=== PATIENT | female | born 1960 | race Caucasian/White ===

== ENCOUNTER 2020-06-07 11:44 | Outpatient (CLI) | payer BC, SELFPAY ==
--- NOTE | 2020-06-07 11:54 | XR_ITS ---
WS: [id number] LUMBAR SPINE: 3 VIEWS TECHNIQUE: AP, lateral and L5-S1 spot. HISTORY: BACK PAIN COMPARISON: 02/03/2019 Posterior alignment is normal. Mild spondylitic changes throughout the lumbar spine. No fracture. There is very mild facet joint arthritis and narrowing at L5-S1. SI joints are symmetric bilaterally. No soft tissue abnormalities. Scattered calcified plaque within the abdominal aorta. Similar to the prior examination. XR/XR lumbar spine 2-3V* [id number] IMPRESSION: 1. Mild stable spondylitic changes in the lumbar spine. 2. No fracture. 3. Mild atherosclerosis aorta.
== END 2020-06-07 11:45 | disposition home or self-care (01) ==
PROVIDERS: Visit Provider Electrodiagnostic Medicine
DX: M54.5 Low back pain (principal); I70.0 Atherosclerosis of aorta
CPT/HCPCS: 72100

== ENCOUNTER 2020-06-20 15:55 | Outpatient (CLI) | payer BC, SELFPAY ==
--- NOTE | 2020-06-20 16:41 | CTR_ITS ---
PROCEDURE INFORMATION: Exam: CT Angiography Chest With Contrast Exam date and time: 06/20/2020 4:42 PM Age: 59 years old Clinical indication: Cough and shortness of breath; Additional info: Rash, copd, covid+ TECHNIQUE: Imaging protocol: Computed tomographic angiography of the chest with contrast. 3D rendering (Not supervised by radiologist): MIP and/or 3D reconstructed images were created by the technologist. Radiation optimization: All CT scans at this facility use at least one of these dose optimization techniques: automated exposure control; mA and/or kV adjustment per patient size (includes targeted exams where dose is matched to clinical indication); or iterative reconstruction. Contrast material: OMNI 350; Contrast volume: 91 ml; Contrast route: INTRAVENOUS (IV); COMPARISON: CR Chest 1 [place] [id number] 05/19/2018 8:44 PM RADIATION DOSE METRICS: Total DLP (mGy-cm): 528.6 FINDINGS: Pulmonary arteries: There is no evidence of filling defects within the pulmonary arterial circulation to suggest pulmonary embolism. Aorta: There are mild atherosclerotic calcifications in the aortic arch without evidence of aneurysm or dissection. Lungs: There are mild findings of centrilobular emphysema with a few scattered lucencies. There is some minimal subsegmental atelectasis at the left lung base. Pleural spaces: Unremarkable. No pneumothorax. No pleural effusion. Heart: There is moderate atherosclerotic calcification of the coronary arteries. Lymph nodes: There are calcified right hilar lymph nodes in keeping with old granulomatous disease. There is mild mediastinal adenopathy with the largest AP window lymph node measuring approximately 10 x 18 mm and also some prominent subcarinal, and paratracheal nodes. Bones/joints: Unremarkable. No acute fracture. Soft tissues: Unremarkable. Other findings: There is a 3 mm sized perifissural nodule on the right. No further follow-up is necessary. CT/CT angio chest PE protcl [id number] IMPRESSION: 1. No evidence pulmonary embolism. 2. No acute infiltrate. Radiation Dose CTDIVOL = (mGy): DLP = 528.6 (mGy-cm)
[2020-06-20] MEDS: iohexol 350 mg/mL 100 mL Btl IV (16:58)
== END 2020-06-20 15:56 | disposition home or self-care (01) ==
PROVIDERS: Visit Provider Electrodiagnostic Medicine
DX: R21 Rash and other nonspecific skin eruption (principal); U07.1 COVID-19; J44.9 Chronic obstructive pulmonary disease, unspecified
CPT/HCPCS: 71275

== ENCOUNTER 2021-02-01 07:35 | Outpatient (CLI) | payer BC, SELFPAY ==
--- NOTE | 2021-02-01 07:43 | MM_ITS ---
WS: [id number] BILATERAL DIGITAL SCREENING MAMMOGRAPHY WITH CAD CLINICAL INFORMATION: SCREENING HISTORY: Screening mammogram. No current complaints. COMPARISON: TECHNIQUE: Bilateral CC and MLO views. FINDINGS: Scattered fibroglandular densities bilaterally. Intramammary lymph node right breast. No suspicious f ocal mass, asymmetry, calcifications, or architectural distortion. No evidence of malignancy. MM/[place] [id number] IMPRESSION: BI-RADS: 2-Benign FOLLOW UP: 1 Year Follow-up Recommend return to annual screening mammography.
== END 2021-02-01 07:36 | disposition home or self-care (01) ==
PROVIDERS: PCP Electrodiagnostic Medicine; Visit Provider Electrodiagnostic Medicine
DX: Z12.31 Encounter for screening mammogram for malignant neoplasm of breast (principal)
CPT/HCPCS: 77067

== ENCOUNTER 2023-03-05 13:43 | Outpatient (CLI) | payer OTHER, SELFPAY ==
--- NOTE | 2023-03-05 13:52 | MM_ITS ---
WS: [id number] BILATERAL 3D TOMOSYNTHESIS DIGITAL SCREENING MAMMOGRAPHY WITH CAD CLINICAL INFORMATION: SCREENING HISTORY: Screening mammogram. No current complaints. COMPARISON: 2020 TECHNIQUE: Bilateral CC and MLO views. FINDINGS: Scattered fibroglandular densities bilaterally. No suspicious focal mass, asymmetry, calcifications, or architectural distortion. No evidence of malignancy. IMPRESSION: MM/[place] [id number] BI-RADS: 1-Negative FOLLOW UP: 1 Year Follow-up Recommend return to annual screening mammography.
== END 2023-03-05 13:44 | disposition home or self-care (01) ==
LOC: RAD 13:44
PROVIDERS: PCP Electrodiagnostic Medicine; Visit Provider Electrodiagnostic Medicine
DX: Z12.31 Encounter for screening mammogram for malignant neoplasm of breast (principal)
CPT/HCPCS: 77063; 77067

== ENCOUNTER 2024-01-17 20:00 | Inpatient (IN) | payer SELFPAY ==
[2024-01-17] VITALS (10 sets, daily range): BP systolic 132–178; BP diastolic 83–123; PULSE 69–76; RESP 14–32; O2SAT 90–100; BMI 30.1
--- NOTE | 2024-01-17 20:17 | ECG_ITS ---
[facility] Test Date: 2024-01-17 Pat Name: Humaira Birmingham Department: Room: Gender: Female System Architect: : 1960 Requested By: Jon Torres Order Number: [id number] Piotr MD: Clemente Guidry M.D. Measurements Intervals Aurora Rate: 73 P: 46 MD: 144 QRS: 44 QRSD: 100 T: 66 QT: 422 QTc: 468 Interpretive Statements SINUS RHYTHM POSSIBLE RIGHT VENTRICULAR CONDUCTION DELAY [RSR (QR) IN V1/V2] No previous ECG available for comparison Electronically Signed On 01-17-2024 21:53:25 CDT by Clemente Guidry M.D. [email or web address]
--- NOTE | 2024-01-17 20:18 | XRR_ITS ---
PROCEDURE INFORMATION: Exam: XR Chest Exam date and time: 01/17/2024 8:33 PM Age: 63 years old Clinical indication: Angina pectoris; Patient HX: Mediastinal chest pain; Copd; SOB TECHNIQUE: Imaging protocol: Radiologic exam of the chest. Views: 1 view. COMPARISON: CT angio chest PE protcl [id number] 06/20/2020 4:45 PM FINDINGS: Lungs: Bilateral mid to lower lung field airspace infiltrates. Pleural spaces: Unremarkable. No pleural effusion. No pneumothorax. Heart/Mediastinum: Unremarkable. No cardiomegaly. Bones/joints: Unremarkable. XR/XR chest 1V portable [id number] IMPRESSION: Bilateral mid to lower lung field airspace infiltrates.
[2024-01-17 20:32] LABS: Basophils # 0.1 10^3/uL (0.0-0.1); Basophils % 0.4 %; Eosinophils # 0.3 10^3/uL (0.0-0.8); Eosinophils % 1.5 %; Hematocrit 40.4 % (36-47); Lymphocytes # 6.3 10^3/uL (0.8-4.8); Mean Corpuscular HGB Conc 34.7 g/dL (30-55); Mean Corpuscular Volume 86.7 fl (85-98); Mean Platelet Volume 9.7 fL (7.4-10.4); Monocytes # 1.1 10^3/uL (0.2-0.9); Monocytes % 6.8 %; Neutrophils # 8.72 10^3/uL (1.8-7.7); Neutrophils % 52.9 %; Nucleated Red Blood Cells % 0 %; Platelet Count 467 10^3/cmm (157-399); Red Blood Count 4.66 10^6/uL (3.85-5.65); Red Cell Distribution Width 14.2 % (12.1-15.1); White Blood Count 16.48 10^3/uL (3.29-11.43)
[2024-01-17] MEDS: morphine 4 mg/mL SDV 1 mL IVP (20:35)
[2024-01-17] MEDS: aspirin 81 mg Chew Tablet 324 MG PO (20:36)
[2024-01-17] MEDS: ondansetron 2 mg/ML SDV 2 mL 4 MG IVP (20:36)
[2024-01-17 20:43] LABS: INR 0.91 (0.8-1.2)
[2024-01-17 20:44] LABS: Partial Thromboplastin Time 33.8 SECONDS (23.9-36.7)
[2024-01-17 20:51] LABS: Alanine Aminotransferase 26 U/L (0-33); Albumin Level 4.4 g/dL (3.5-5.2); Alkaline Phosphatase 118 U/L (35-105); Anion Gap 23.2 (5-19); Aspartate Amino Transferase 24 U/L (0-32); Blood Urea Nitrogen 22 mg/dL (8-23); Calcium 9.3 mg/dL (8.5-10.5); Carbon Dioxide 15 mmol/L (22-29); Chloride 104 mmol/L (98-107); Creatinine Clr Calc Pharmacy 72.6111; Globulin 2.4 g/dL (1.3-4.6); Glomerular Filtration Rate 72.9 mL/min (90-130); Glucose 149 mg/dL (65-115); Osmolality Calculated 292 mOsm/kg (285-295); Potassium 4.2 mmol/L (3.5-5.1); Sodium 138 mmol/L (136-145); Total Bilirubin 0.2 mg/dL (0.15-1.2); Total Protein 6.8 g/dL (6.6-8.7)
[2024-01-17 20:52] LABS: Troponin(5th) Baseline 174 ng/L (0-10)
[2024-01-17 20:58] LABS: NT Pro B Type Natriuretic Pept 67 pg/mL (0-125)
[2024-01-17] MEDS: clopidogrel 300 mg Tablet 600 MG PO (21:07)
[2024-01-17] MEDS: heparin 5,000 unit/mL INJ 1 mL 4000 UNIT IVP (21:07)
[2024-01-17] MEDS: nitroglycerin drip 50 MG/250 ML PREMIX IV (21:27)
--- NOTE | 2024-01-17 21:31 | P.HP_ITS ---
Providers/Chief Complaint 2 Admitting Physician: Clemente Guidry MD/ Interventional cardiology Primary Care Provider: Noe Johansen DO Chief Complaint: arm pain, sob History of Present Illness Humaira Birmingham is a 63 year old female with past medical history of hyperlipidemia has presented with substernal chest pressure that feels like stabbing pain and heartburn. Radiating to arms. Associated with diaphoresis and nausea. This has been going on since afternoon. On and off however now got severe. In the ER EKG does not demonstrate acute ST elevation. Initial troponin is 174. As chest pain is getting worse, decision made to activate cardiac Edge Grinder for urgent cardiac catheterization with possible PCI. Review of Systems 2 Narrative: CONSTITUTIONAL: No fever chills weight loss or gain or night sweats. 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 [] MUSCULOSKELETAL: No knee or joint pain or rashes. [] Medications/Allergies Allergies Allergy/AdvReac Type Severity Reaction Status Date / Time No Known Allergies Allergy Verified 01/17/24 20:23 Vitals/I&O/Wt Last Vital Signs Pulse 69 01/17/24 20:00 Resp 32 H 01/17/24 20:35 BP 173/101 01/17/24 20:00 Pulse Ox 98 01/17/24 20:00 O2 Del Method Room Air 01/17/24 20:00 Weight last 48 hrs Weight 170 lb Physical Exam 2 Narrative: GENERAL: Patient is alert, awake and oriented x3. [] NECK: No jugular vein distension. [] HEENT: No cyanosis. No icterus. No pallor. [] HEART: Regular S1 and S2. No murmur, rub or gallop. [] LUNGS: Clear to auscultate bilaterally. [] CENTRAL NERVOUS SYSTEM: Grossly nonfocal. [] EXTREMITIES: Lower extremities with no edema bilaterally Data 01/17/24 20:21 01/17/24 20:21 A&P Assessment and plan (1) NSTEMI (non-ST elevated myocardial infarction): (2) Hyperlipidemia: Plan Patient has presented with high risk for non-ST elevation NV. Has significant symptoms of chest pain/heart burn going on associated with diaphoresis, nausea. Plan for urgent cardiac catheterization with possible percutaneous coronary intervention Has been loaded with aspirin, plavix. Heparin bolus given Ordering echocardiogram Attestations 2 Medical Necessity Statement*: Care expected to cross 2 midnights. Patient has presented with acute onset chest pain and elevated troponin. High risk NSTEMI. Going for urgent cardiac catheterization. Coding Level of Care Code Acute Code for [facility] Diagnoses NSTEMI (non-ST elevated myocardial infarction) I21.4 Hyperlipidemia E78.5
--- NOTE | 2024-01-17 21:41 | XACV_ITS ---
Exam Room: 2 Ht: 160 cm Wt: 77 kg BSA: 1.88 m2 Gender: Female : 1960 Any Known Allergies: No known allergies Exam Priority: Routine Procedure(s): Procedure Description: Diagnostic procedure Procedure Description: PCI procedure Procedure Description: Left Heart Catheterization Procedure Description: Coronary IVUS Procedure Description: Drug Eluting Coronary Stent Procedure Description: PTCA Procedure Description: Miscellaneous Procedure Description: ACT Diagnostic Cath Status: Urgent Diagnostic Findings * INDICATION: High risk NSTEMI with ongoing chest pain, diaphoresis. * Left Main has no significant disease. * Circumflex has mild diffuse irregularities. * Proximal Left Anterior Descending: obstructive 60- 70% stenosis, SENDY: 3 flow. * Proximal to Mid Left Anterior Descending: critical 95% stenosis, SENDY: 2 flow. * Distal Right Coronary Artery: obstructive 60-70% stenosis, SENDY: 3 flow. * Proximal Right Coronary Artery to Mid Right Coronary Artery: obstructive 70% stenosis, SENDY: 3 flow. * Mid Right Coronary Artery to Distal Right Coronary Artery: severe 90% stenosis, SENDY: 3 flow. * Coronary angiography shows right dominance. PCI Status: Urgent PCI Indication: PCI for high risk Non-STEMI or unstable angina Interventional Findings * Procedure detail: We engaged the left main artery with XB 3.5 guide catheter. IV heparin was administered to maintain anticoagulation. 0.014 run-through guidewire was used to cross the stenosis and was placed in distal vessel. We predilated the proximal to mid segment of LAD with 2.75 x 15 mm semicompliant balloon. This was followed with placement of 3.0 x 30 mm resolute Mitch drug-eluting stent. At this time there was stenosis noted at distal and proximal edge of the stent. We performed IVUS that confirmed less than 50% plaque burden at distal edge of the stent with improvement of angiographic narrowing seen with nitro. MSA was obtained to be 5mm2. Proximal to stent, lesion looked more significant. We decided to cover it with a 3.5 x 18 mm resolute Mitch drug-eluting stent overlapping with the mid segment stent. Both stents were then postdilated with 3.5 x 27 mm NC balloon at high pressure. At this time final angiogram was performed that showed excellent stent expansion, no residual stenosis and SENDY-3 flow. We decided to staged PCI of RCA in 1-2 days as a patient had received significant contrast load.. * Proximal Left Anterior Descending to Mid Left Anterior Descendin% stenosis treated with a MDT R MITCH 3.5X18 MARINA, and MDT NC EUPHORA RX 3.57J57GR BALLOON. 0% residual stenosis, SENDY: 3 flow. * Mid Left Anterior Descendin% stenosis treated with a AB TREK 2.75X15 RX BALLOON, and MDT R MITCH 3.0X30 MARINA. 0% residual stenosis, SENDY: 3 flow. Conclusions 1. Critical proximal to mid LAD stenosis s/p successful revascularization with 2 stents. 2. Severe stenosis of proximal to distal RCA. Plan for staged PCI in 1-2 days. 3. Proximal Left Anterior Descending to Mid Left Anterior Descending was treated with a Drug Eluting Stent, and Balloon. 4. Mid Left Anterior Descending was treated with a Balloon, and Drug Eluting Stent. Recommendations * Dual antiplatelet therapy with aspirin and plavix for atleast 1 year. * Smoking cessation. * Transfer to ICU. * Plan for staged PCI of RCA in 1-2 days. Interventional RX Recommendation: PCI w/o planned CABG Diagnostic RX Recommendation: PCI w/o planned CABG Anticoagulation: Heparin Pressures Phase:Rest AO : 94 / 71 ( 83 ) @ 5:57:57 PM 99 / 65 ( 81 ) @ 5:57:57 PM 119 / 74 ( 96 ) @ 5:57:57 PM 129 / 82 ( 104 ) @ 5:57:57 PM 92 / 52 ( 70 ) @ 5:57:57 PM Clinical Evaluation EBL: 5mL-10mL Procedural Details Pre-Procedure Time Out. Identified patient by full name and date of as verbalized by the patient/guarantor. Does the consent match the physician's order: Yes. Accurate & Complete Informed Consent: Yes. Inpatient/Outpatient History & Physical on Chart: Yes. If H&P is completed, is and addenduem needed: N/A Emergent; Informed Consent not obtained due to time critical life threat; If yes, is the addendum complete: Yes. Visualize and Verify Site with Patient/Guarantor: N/A. Relevant Radiology Images available: Yes. Pre-op teaching completed and patient verbalized understanding. The risks, benefits, and alternatives of sedation and/or procedure were discussed by physician. The patient agrees to continue. Procedure started. [facility] Clinical Fraility Score: 3: Managing Well. Welfare Supervisor Indications: ACS > 24 hours. Chest Pain Symptom Assessment: Typical Angina Symptoms. Cardiovascular Instability: No. Correct patient, site and procedure confirmed by cath team. Current diagnosis: NSTEMI. PERRLA. Strong, equal hand tipple mechanic bilaterally. Lungs clear x 5 lobes. IV Site on Arrival: 20 gauge in the right anticubital. IV Site on Arrival: 20 gauge in the left anticubital. IV Fluids: 0.9% NaCl at KVO. 0 mL infused prior to labor/excavator. Pre Procedural Pulses: right radial was 3+. Oxygen started at 2liters/min via nasal canula. right groin was prepped with chloroprep then draped in the usual sterile fashion. right radial was prepped with chloroprep then draped in the usual sterile fashion. Physician notified. Baseline sample Acquired. HR: 70 BPM. Patient's family in the obsterics unit at this time. Dr. Guidry spoke with the spouse, Taun, prior to the start of the procedure. Will update at the compeltion of the procedure. Equipment: 6F - Radial. Cardiac Cath Pack. ACIST Manifold Kit Model BT 2000. Heparinized Saline (2 units/mL), 1000 mL bag. Physician arrived. Physician scrubbed in. Immediate Pre-Procedure Time Out. Correct Patient: Yes; Correct Procedure: Yes; Correct Site: Yes; Correct Patient Position: Yes; Correct Supplies: Yes; Dried Flammable Prep: Yes; Blood Products Available: N/A. Lidocaine 1% infiltrated to the right radial. Unable to obtain radial access. MD attempting to gain access in the Femoral artery. Lidocaine 1% infiltrated to the right groin. Arterial access obtained with micropuncture set. A Zepher TR band was placed on the right wrist. A 5 namibian JL4 catheter in over wire. Multiple views taken of left coronary artery. Catheter removed over the standard wire. A 5 namibian JR4 catheter in over wire. Multiple views taken of right coronary artery. Catheter removed over the standard wire. 6 namibian XB 3.5 guide catheter was inserted over the wire. Runthrough guidewire was advanced through the guide catheter to lesion in the mid LAD. Inflation number : 1 A AB TREK 2.75X15 RX BALLOON was prepped and advanced across the Mid LAD , then inflated to 8 JANEY for 0:10 seconds. Inflation number: 2 The AB TREK 2.75X15 RX BALLOON was reinflated across the Mid LAD, to 10 JANEY for 0:10 seconds. Balloon out. Results checked. Inflation Number : 3 A MDT R MITCH 3.0X30 MARINA -Lot Number# [id number] was prepped and advanced across the Mid LAD. The stent was deployed at 12 JANEY for 0:22 seconds. Exp 2026-03-23. Stent balloon out over wire. Results checked. PCI Indication : PCI for high risk Non-STEMI or unstable angina. IVUS Catheter in. IVUS performed of the LAD post PCI. IVUS Catheter out. Inflation Number : 1 A MDT R MITCH 3.5X18 MARINA -Lot Number# [id number] prepped and advanced across the Prox LAD. The stent was deployed at 14 JANEY for 0:20 seconds. Exp. 2026-02-02. Stent balloon out over wire. Inflation number : 2 A MDT NC EUPHORA RX 3.24G38RR BALLOON was prepped and advanced across the Prox LAD , then inflated to 20 JANEY for 0:19 seconds. Inflation number: 3 The MDT NC EUPHORA RX 3.33C77GY BALLOON was reinflated across the Prox LAD, to 20 JANEY for 0:12 seconds. Balloon out. Results checked. Wire out. Results checked. ACT drawn. Results out of range high seconds. Therapeutic limits - pre-heparin administration 90-150 seconds and monitoring heparin during a vascular procedure >250 seconds. Guide catheter out. A Right femoral angiogram was performed to determine safe placement of closure device. A Suture was successful obtaining hemostatsis at the Right Femoral artery insertion site. Sheath(s) sutured into position with 2-0 silk and sterile 4x4's and Op-site applied over the site. No oozing or signs and symptoms of hematoma noted. Arterial sheath flushed and connected to tranducer and pressure bag with heparinized saline. Post Procedure: bilateral dorsalis pedis pulse 3+. Post Procedure: bilateral posterior tibial pulse 3+. PERRLA. Strong, equal hand tipple mechanic bilaterally. No VTE prophylaxis required. Medication's Wasted: Lidocaine 1% = 10 mL. Total IV fluids: 60 mL. PCI Indication: NSTE. Post-op diagnosis: PCI of the Prox & Mid LAD. Complications: none. Estimated blood loss: 5mL-10mL. Responsiveness - Normal response to verbal stimuli; alert and oriented, PERRLA. Airway - Unaffected, no intervention required; spontaneous ventilation. Circulation: W/N/L, pulses unchanged. Nausea/Vomiting: No. ACT drawn. Results 225 seconds. Therapeutic limits - pre-heparin administration 90-150 seconds and monitoring heparin during a vascular procedure >250 seconds. Procedure completed. Vital chart was stopped. Access Site Site: Right Femoral artery Sheath Size: 6 Fr Hemostasis Method: Suture Hemostasis Success: Successful Procedure Medications Start: 10:03 PM Stop: 10:03 PM Medication: Versed Amount: 1 mg Route: I.V. Start: 10:03 PM Stop: 10:03 PM Medication: Fentanyl Amount: 50 mcg Route: I.V. Start: 10:04 PM Stop: 10:04 PM Medication: Versed Amount: 1 mg Route: I.V. Start: 10:08 PM Stop: 10:08 PM Medication: Fentanyl Amount: 50 mcg Route: I.V. Start: 10:14 PM Stop: 10:14 PM Medication: Heparin Amount: 3000 units Route: I.V. Start: 10:24 PM Stop: 10:24 PM Medication: Versed Amount: 1 mg Route: I.V. Start: 10:30 PM Stop: 10:30 PM Medication: Nitrogylcerin Amount: 200 mcg Route: I.C. Start: 10:31 PM Stop: 10:31 PM Medication: Heparin Amount: 1000 units Route: I.V. Start: 10:43 PM Stop: 10:43 PM Medication: Versed Amount: 1 mg Route: I.V. I, the attending physician, have reviewed and verified all procedure medications. Yes, all medications given per verbal order Report Signatures Finalized by Clemente Guidry MD on 01/19/2024 12:22 PM
--- NOTE | 2024-01-17 21:59 | W.PM.OPSUD ---
Surgery/Procedure H&P Update DATE OF PROCEDURE: January 17, 2024 DATE H&P PERFORMED: 01/17/24 H&P UPDATE INFORMATION: I have reviewed H&P completed within last 30 days, I have examined patient prior to procedure and No changes to prior documentation PREOP DIAGNOSIS: NSTEMI PRIMARY INDICATION FOR PROCEDURE: NSTEMI PLANNED PROCEDURE: Left heart cath with possible percutaneous coronary intervention PATIENT REASSESSED PRIOR TO SEDATION, WITH NO CHANGE NOTED: Yes PHYSICAL EXAM: alert, oriented x 3, clear to auscultation bilaterally and regular rate & rhythm AIRWAY EVAL/ANESTHESIA PLAN: normal airway, ASA III, Local Anesthesia, Risks, benefits & alternatives of sedation and/or procedure discussed and Patient agrees to continue as planned ADDITIONAL INFORMATION: Moderate sedation
--- NOTE | 2024-01-17 22:56 | XACV_ITS ---
Exam Room: 2 Ht: 160 cm Wt: 77 kg BSA: 1.88 m2 Gender: Female : 1960 Any Known Allergies: No known allergies Exam Priority: Routine Procedure(s): Procedure Description: PCI procedure Procedure Description: Coronary IVUS Procedure Description: Drug Eluting Coronary Stent Procedure Description: PTCA Procedure Description: Miscellaneous Procedure Description: ACT Procedure Description: Coronary Angiography Diagnostic Cath Status: Urgent Diagnostic Findings * INDICATION: Patient presented with high risk NSTEMI. We performed PCI of critical proximal to mid LAD stenosis with 2 stents. Plan was to to intervene on RCA in 1 to 2 days. Patient was still on the labeling strategist table when she mentioned that the chest pain has not resolved and is still having severe pressure. We then proceeded with PCI of RCA. * Proximal to mid RCA has [id number]% stenosis. Mid Right Coronary Artery to Distal Right Coronary Artery: severe 90% stenosis. Distal RCA has another 60-70% stenosis. * Left system not injected. Please refer to diagnostic report from earlier today i.e 01/17/2024. * Coronary angiography shows right dominance. PCI Status: Urgent PCI Indication: NSTE - ACS Interventional Findings * Mid Right Coronary Artery to Distal Right Coronary Artery: 90% stenosis treated with a 3.0X30 stent balloonHANNAH MITCH 3.5X38 MARINA, HANNAH Frederick MITCH 3.5X38 MARINA, and HANNAH PRAJAPATI EUPHORA RX [id number] BALLOON. 0% residual stenosis, SENDY: 3 flow. * PROCEDURE DETAIL: We engaged RCA with JR4 guide catheter. ACT was confirmed to be theraputic. We predilated the stenosis with 3.0 x 30 mm stent balloon used for her LAD PCI. This was followed by placement of 3.5 x 38 mm resolute Mitch drug-eluting stent from mid to distal segment. We then placed an overlapping 3.5 x 38 mm resolute Mitch drug-eluting stent from proximal to mid segment. We then performed IVUS. Stents were postdilated with 3.75 x 20 mm NC balloon. At this time final angiogram was performed that showed excellent stent expansion, SENDY 3 flow and no residual stenosis. . Conclusions 1. Severe proximal to distal RCA stenosis status post successful revascularization with 2 stents.. 2. Mid Right Coronary Artery to Distal Right Coronary Artery was treated with a Drug Eluting Stent, Drug Eluting Stent, Drug Eluting Stent, and Balloon. Recommendations * Transfer to ICU. * Dual antiplatelet therapy with aspirin and plavix. * High intensity statin therapy. * Outpatient cardiology follow up in 2 weeks. Interventional RX Recommendation: PCI w/o planned CABG Diagnostic RX Recommendation: PCI w/o planned CABG Anticoagulation: Heparin Pressures Phase:Rest AO : 157 / 100 ( 127 ) @ 6:30:38 PM 121 / 80 ( 98 ) @ 6:30:38 PM 164 / 98 ( 128 ) @ 6:30:38 PM Clinical Evaluation EBL: 5mL-10mL Procedural Details The risks, benefits, and alternatives of sedation and/or procedure were discussed by physician. The patient agrees to continue. Procedure started. When closing the initial procedure, the patient started complaining of chest pain. Dr. Guidry Scrubbed back in. 6 grenadian JR 4 guide catheter was inserted over the wire. Runthrough guidewire was advanced through the guide catheter to lesion in the mid RCA. Inflation Number : 1 The 3.0 x 30 Sontag STENT BALLOON was prepped and advanced across the Mid RCA. The predilation was performed at 14 JANEY for 0:17 seconds. Inflation number: 2 The stent balloon was then re-inflated across the Mid RCA to 14 JANEY for 0:11 seconds. Stent balloon out. Inflation Number : 3 A MDT R MITCH 3.5X38 MARINA -Lot Number# [id number] was prepped and advanced across the Mid RCA. The stent was deployed at 12 JANEY for 0:22 seconds. Exp 2024-01-24. Stent balloon out over wire. Inflation Number : 4 A MDT R MITCH 3.5X38 MARINA -Lot Number# [id number] was prepped and advanced across the Mid RCA. The stent was deployed at 12 JANEY for 0:21 seconds. Exp. 2025-07-09. Stent balloon out over wire. IVUS catheter in. IVUS performed of the RCA post PCI. IVUS catheter out. Inflation number : 5 A MDT NC EUPHORA RX [id number] BALLOON was prepped and advanced across the Mid RCA , then inflated to 14 JANEY for 0:16 seconds. Inflation number: 6 The MDT NC EUPHORA RX 3.88A32YM BALLOON was reinflated across the Mid RCA, to 14 JANEY for 0:10 seconds. Inflation number: 7 The MDT NC EUPHORA RX [id number] BALLOON was reinflated across the Mid RCA, to 14 JANEY for 0:13 seconds. Balloon out. Euphora 3.5 x 6 inserted, unable to cross, removed intact. Wire out. ACT drawn. Results 251 seconds. Therapeutic limits - pre-heparin administration 90-150 seconds and monitoring heparin during a vascular procedure >250 seconds. Guide catheter out. Dr. Guidry scrubbed out. Sheath(s) sutured into position with 2-0 silk and sterile 4x4's and Op-site applied over the site. No oozing or signs and symptoms of hematoma noted. Arterial sheath flushed and connected to tranducer and pressure bag with heparinized saline. Post Procedure: bilateral dorsalis pedis pulse 3+. Post Procedure: bilateral posterior tibial pulse 3+. PERRLA. Strong, equal hand plycor operator bilaterally. No VTE prophylaxis required. Medication's Wasted: Other = Versed 1 mg. Medication's Wasted: Other = Fentnayl 50 mcg. Total IV fluids: 50 mL. PCI Indication: NSTE. Post-op diagnosis: PCI of the Mid RCA. Medication's Wasted: Heparin = 2000 mL. Complications: none. Estimated blood loss: 5mL-10mL. Responsiveness - Normal response to verbal stimuli; alert and oriented, PERRLA. Airway - Unaffected, no intervention required; spontaneous ventilation. Circulation: W/N/L, pulses unchanged. Nausea/Vomiting: No. Procedure completed. Patient transferred by bed to ICU. Vital chart was stopped. Procedure Medications Start: 11:00 PM Stop: 11:00 PM Medication: Heparin Amount: 1000 units Route: I.V. Start: 11:05 PM Stop: 11:05 PM Medication: Fentanyl Amount: 50 mcg Route: I.V. Start: 11:05 PM Stop: 11:05 PM Medication: Versed Amount: 1 mg Route: I.V. Start: 11:12 PM Stop: 11:12 PM Medication: Heparin Amount: 1000 units Route: I.V. Start: 11:28 PM Stop: 11:28 PM Medication: Heparin Amount: 1000 units Route: I.V. I, the attending physician, have reviewed and verified all procedure medications. Yes, all medications given per verbal order Report Signatures Finalized by Clemente Guidry MD on 01/19/2024 12:38 PM
--- NOTE | 2024-01-17 22:56 | ED_ITS ---
HPI - Chest Pain 2 General: Chief Complaint: Chest Pain Stated Complaint: arm pain, sob Time Seen by Provider: 01/17/24 20:13 History of Present Illness: 63-year-old female presenting with chest pain radiating into her neck. She has no prior history of coronary disease. She states she is sweating and short of breath. She is nauseated. She has not had the symptoms prior to 4 days ago. But began with them around 4 days ago on and off. It has been constant and much worse this evening. Related Data Allergies Allergy/AdvReac Type Severity Reaction Status Date / Time No Known Allergies Allergy Verified 01/17/24 20:23 Physical Exam 2 Const: GENERAL APPEARANCE: cooperative, in distress, anxious and ill appearing; not frail appearing OTHER: Diaphoretic HENMT: COMMON NORMALS: normocephalic, atraumatic and Normal external nose present HEAD & SCALP: normocephalic and atraumatic FACE & SINUS: normal facial exam and face symmetric NOSE: Normal external nose present Eye: COMMON NORMALS: Equal, round and reactive pupils present and EOMs intact bilaterally PUPIL: Yes Equal, round and reactive pupils present Neck/C-Spine: GENERAL: Yes trachea midline Chest: CHEST: Yes Symmetrical chest wall rise Resp: COMMON NORMALS: normal respiratory effort, No retractions, No use of accessory muscles and clear to auscultation bilaterally AUSCULTATION: clear to auscultation bilaterally Cardio: COMMON NORMALS: regular rate and regular rhythm RATE: regular rate RHYTHM: regular rhythm GI: COMMON NORMALS: Normal to inspection, nondistended, normoactive bowel sounds present Extremity: COMMON NORMALS: no pedal edema Neuro: MELVIN COMA SCALE: document GCS findings Melvin coma scale eye opening: Spontaneous Hernshaw coma scale verbal response: Orientated Melvin coma scale motor response: Obey commands Melvin coma scale total score: 15 S ENSORY EXAM: Yes extremities (intact) Psych: COMMON NORMALS: speech normal SPEECH: Yes normal speech Skin: COMMON NORMALS: no rashes or lesions noted GENERAL SKIN EXAM: no rashes or lesions noted Course 2 Vital Signs: Vital signs: Vital Signs Pulse Rate 69 01/17/24 20:00 Respiratory Rate 32 H 01/17/24 20:35 Blood Pressure 173/101 01/17/24 20:00 Pulse Oximetry 98 01/17/24 20:00 Oxygen Delivery Me thod Room Air 01/17/24 20:00 MDM - Chest Pain Medical Decision Making Patient is in significant discomfort. She is given morphine with some relief. She still complaining of pain. Nitroglycerin has been ordered. EKG initially did not reveal any significant ST elevation or depression. White blood cell count is 16. Bicarb is 15. Anion gap is 23. Her baseline troponin is 174. BNP is negative. Chest x-ray reveals bilateral mid to lower lung field infiltrates consistent with potential edema. With significant anginal pain, elevated troponin, and pain not resolving with conservative treatment, consulted cardiology. Sent EKG. He agrees that there is no ST elevation WA, but with continued discomfort in the patient's chest and elevated troponin, elected to take the patient directly to the [facility] this evening. Cath team has been activated. She will go from here to the [facility]. She will be admitted for further workup and treatment following cardiac cath. Lab Data 01/17/24 20:21 01/17/24 20:21 Radiology Impressions Chest X-Ray 01/17/24 20:18 IMPRESSION: Bilateral mid to lower lung field airspace infiltrates. Laboratory Results WBC 16.48 10^3/uL (3.29-11.43) H 01/17/24 20:21 RBC 4.66 10^6/uL (3.85-5.65) 01/17/24 20:21 Hgb 14.00 g/dL (11.27-16.99) 01/17/24 20:21 Hct 40.4 % (36-47) 01/17/24 20:21 MCV 86.7 fl (85-98) 01/17/24 20:21 MCH 30.0 pg (27-33) 01/17/24 20:21 MCHC 34.7 g/dL (30-55) 01/17/24 20:21 RDW 14.2 % (12.1-15.1) 01/17/24 20:21 Plt Count 467 10^3/cmm (157-399) H 01/17/24 20:21 MPV 9.7 fL (7.4-10.4) 01/17/24 20:21 Neut % (Auto) 52.9 % 01/17/24 20:21 Lymph % (Auto) 38.0 % 01/17/24 20:21 Ballard % (Auto) 6.8 % 01/17/24 20:21 Eos % (Auto) 1.5 % 01/17/24 20:21 Baso % (Auto) 0.4 % 01/17/24 20:21 Neut # (Auto) 8.72 10^3/uL (1.8-7.7) H 01/17/24 20:21 Lymph # (Auto) 6.3 10^3/uL (0.8-4.8) H 01/17/24 20:21 Ballard # (Auto) 1.1 10^3/uL (0.2-0.9) H 01/17/24 20:21 Eos # (Auto) 0.3 10^3/uL (0.0-0.8) 01/17/24 20:21 Baso # (Auto) 0.1 10^3/uL (0.0-0.1) 01/17/24 20:21 Nucleated RBC % (auto) 0 % 01/17/24 20:21 Nucleated RBCs # 0.0 /100WBC 01/17/24 20:21 PT 12.60 SECONDS (12.1-14.9) 01/17/24 20:21 INR 0.91 (0.8-1.2) 01/17/24 20:21 APTT 33.8 SECONDS (23.9-36.7) 01/17/24 20:21 Sodium 138 mmol/L (136-145) 01/17/24 20:21 Potassium 4.2 mmol/L (3.5-5.1) 01/17/24 20:21 Chloride 104 mmol/L (98-107) 01/17/24 20:21 Carbon Dioxide 15 mmol/L (22-29) L 01/17/24 20:21 Anion Gap 23.2 (5-19) H 01/17/24 20:21 BUN 22 mg/dL (8-23) 01/17/24 20:21 Creatinine 0.8 mg/dL (0.5-0.9) 01/17/24 20:21 GFR Calculation 72.9 mL/min (90-130) L 01/17/24 20:21 Glucose 149 mg/dL (65-115) H 01/17/24 20:21 Calculated Osmolality 292 mOsm/kg (285-295) 01/17/24 20:21 Calcium 9.3 mg/dL (8.5-10.5) 01/17/24 20:21 Total Bilirubin 0.2 mg/dL (0.15-1.2) 01/17/24 20:21 AST 24 U/L (0-32) 01/17/24 20:21 ALT 26 U/L (0-33) 01/17/24 20:21 Alkaline Phosphatase 118 U/L (35-105) H 01/17/24 20:21 Troponin T Baseline 174 ng/L (0-10) H* 01/17/24 20:21 NT-Pro-B Natriuret Pep 67 pg/mL (0-125) 01/17/24 20:21 Total Protein 6.8 g/dL (6.6-8.7) 01/17/24 20:21 Albumin 4.4 g/dL (3.5-5.2) 01/17/24 20:21 Globulin 2.4 g/dL (1.3-4.6) 01/17/24 20:21 All radiology interpretation(s) finalized by discharge Critical Care Time 2 Critical Care Time: Critical Care Time: Yes Total Critical Care Time: 35 Attestation: This case had a high probability of a clinically significant, sudden, or life threatening deterioration of this patient's condition which required my full and direct attention, intervention and personal management. Time is independent of any procedures performed. Discharge Plan Discharge Patient Disposition: Admitted As Inpatient Clinical Impression: NSTEMI (non-ST elevated myocardial infarction) Condition: Serious Coding Level of Care Code ED Private Duty Rn for Santy Butcher
[2024-01-17] MEDS: sodium chloride 0.9% 1,000 ML 100 ML IV (23:45)
[2024-01-18] VITALS (46 sets, daily range): BP systolic 94–159; BP diastolic 57–92; PULSE 60–76; RESP 14–27; TEMP 36.6–36.8; O2SAT 88–99
--- NOTE | 2024-01-18 | PC.RESP ---
EKG from 2209 cancelled, patient in laboratory manager at this time.
--- NOTE | 2024-01-18 00:07 | ECG_ITS ---
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 Measurements Intervals [place] Rate: 71 P: 61 MT: 170 QRS: 48 QRSD: 96 T: 85 QT: 418 QTc: 457 Interpretive Statements SINUS RHYTHM SEPTAL MYOCARDIAL INFARCTION , OF INDETERMINATE AGE [40+ ms Q WAVE IN V1/V2] MODERATE T-WAVE ABNORMALITY, CONSIDER ANTEROLATERAL ISCHEMIA [-0.1+ mV T-WAVE IN V3-V6] Compared to ECG 01/17/2024 20:17:45 Myocardial infarct finding now present T-wave abnormality now present Possible ischemia now present Electronically Signed On 01-18-2024 1:34:20 CDT by Clemente Guidry M.D. [id number]
[2024-01-18] MEDS: metoprolol tartrate 50 mg Tablet PO ×3 (00:46→17:49)
[2024-01-18 01:43] LABS: Charge for UA Resulting for Rev
[2024-01-18 01:49] LABS: Bilirubin Urine Negative (Negative); Blood Urine 3+ (Negative); Glucose Urine UA Negative (Normal); Ketones Urine Negative (Negative); Leukocyte Esterase Urine Negative (Negative); Nitrate Urine Negative (Negative); Protein Urine 1+ (Negative); Urine Appearance Clear (CLEAR); Urine Color Yellow (Yellow)
[2024-01-18 01:54] LABS: Bacteria Urine None Seen /hpf; Squamous Epithelial Cell Urine 0-5 /hpf (0-5); WBC Urine 0-5 /hpf (0-5)
[2024-01-18 01:57] LABS: Specific Gravity, Urine 1.093 (1.005-1.030)
--- NOTE | 2024-01-18 02:28 | ECG_ITS ---
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 Measurements Intervals [place] Rate: 69 P: 53 MN: 174 QRS: 50 QRSD: 94 T: 56 QT: 475 QTc: 511 Interpretive Statements SINUS RHYTHM POSSIBLE ANTERIOR MYOCARDIAL INFARCTION , OF INDETERMINATE AGE [30 ms Q WAVE IN V3/V4, OR R < 0.2 mV IN V4] MODERATE T-WAVE ABNORMALITY, CONSIDER LATERAL ISCHEMIA [-0.1+ mV T-WAVE IN I/aVL/V5/V6] Compared to ECG 01/18/2024 00:07:44 No significant changes Electronically Signed On 01-18-2024 14:30:29 CDT by Clemente Guidry M.D. [id number]
[2024-01-18 02:46] LABS: Partial Thromboplastin Time 81.5 SECONDS (23.9-36.7)
[2024-01-18 03:38] LABS: Adenovirus Not Detected (NOT DETECT); Chlamydia Pneumoniae Not Detected (NOT DETECT); Coronavirus 229E,HKU1,NL63,OC4 Not Detected (NOT DETECT); Human Metapneumovirus Not Detected (NOT DETECT); Human Rhinovirus/Enterovirus Not Detected (NOT DETECT); Influenza A Not Detected (NOT DETECT); Influenza A H1 Not Detected (NOT DETECT); Influenza A H1-2009 Not Detected (NOT DETECT); Influenza A H3 Not Detected (NOT DETECT); Influenza B Not Detected (NOT DETECT); Mycoplasma Pneumoniae Not Detected (NOT DETECT); Parainfluenza Virus Type 1 Not Detected (NOT DETECT); Parainfluenza Virus Type 2 Not Detected (NOT DETECT); Parainfluenza Virus Type 3 Not Detected (NOT DETECT); Parainfluenza Virus Type 4 Not Detected (NOT DETECT); Respiratory Syncytial Virus A Not Detected (NOT DETECT); Respiratory Syncytial Virus B Not Detected (NOT DETECT); SARS-COV-2 Not Detected (NOT DETECT)
--- NOTE | 2024-01-18 04:02 | PC.NURSE ---
TR band removed at 0245. No hematoma or drainage noted, dressed with 2x2 gauze and bioclusive.
[2024-01-18 04:18] LABS: Basophils % 0.2 %; Eosinophils # 0.2 10^3/uL (0.0-0.8); Eosinophils % 1.4 %; Lymphocytes # 4.4 10^3/uL (0.8-4.8); Mean Corpuscular HGB Conc 33.2 g/dL (30-55); Mean Corpuscular Hemoglobin 29.6 pg (27-33); Mean Corpuscular Volume 89.2 fl (85-98); Mean Platelet Volume 9.9 fL (7.4-10.4); Monocytes # 0.7 10^3/uL (0.2-0.9); Monocytes % 5.2 %; Neutrophils % 59.9 %; Nucleated Red Blood Cells % 0 %; Platelet Count 397 10^3/cmm (157-399); Red Blood Count 4.15 10^6/uL (3.85-5.65); Red Cell Distribution Width 14.4 % (12.1-15.1); White Blood Count 13.21 10^3/uL (3.29-11.43)
[2024-01-18 04:37] LABS: Partial Thromboplastin Time 42.6 SECONDS (23.9-36.7)
[2024-01-18 04:43] LABS: Anion Gap 15.1 (5-19); Blood Urea Nitrogen 17 mg/dL (8-23); Calcium 8.2 mg/dL (8.5-10.5); Carbon Dioxide 21 mmol/L (22-29); Chloride 107 mmol/L (98-107); Creatinine Clr Calc Pharmacy 99.4373; Glomerular Filtration Rate 101.6 mL/min (90-130); Glucose 105 mg/dL (65-115); Osmolality Calculated 290 mOsm/kg (285-295); Potassium 4.1 mmol/L (3.5-5.1); Sodium 139 mmol/L (136-145)
--- NOTE | 2024-01-18 05:47 | PC.NURSE ---
Sheath pull: Patient positioned flat in bed. Sammie Li RN standing by at bedside for assistance. Waste pulled and no clots noted. Sutures removed. Manual pressure held starting at 0510 held for 15 minutes, no hematoma noted, groin started oozing again. Pressure held for another 15 minutes, pressure let up and no hematoma noted, groin started to ooze, resumed manual pressure 15 minutes. No hematoma and no oozing noted at this time. Dressing placed with 2x2 gauze and bioclusive.
--- NOTE | 2024-01-18 05:52 | USCV_ITS ---
Humaira Birmingham Age: 63 Gender: F : 1960 Exam Date: 01/18/2024 10:34 Ordering Phys: Clemente Guidry M.D ([email or web address]) Technologist: Holden Joshua Exam Location: [facility] [place] Indication: nstemi BP: 119 / 80 HR: 64 Rhythm: Sinus Technical Quality: Adequate MEASUREMENTS (Male / Female) Normal Values 2D ECHO LV Diastolic Diameter PLAX 5.3 cm 4.2 - 5.9 / 3.9 - 5.3 cm IVS Diastolic Thickness 1.2 cm 0.6 - 1.0 / 0.6 - 0.9 cm IVS Systolic Thickness 1.5 cm LVPW Diastolic Thickness 1.3 cm 0.6 - 1.0 / 0.6 - 0.9 cm LVPW Systolic Thickness 1.9 cm LVOT Diameter 2.0 cm LV Ejection Fraction 2D Teich 45.8 % LV Ejection Fraction MOD 4C 46.8 % LV Ejection Fraction MOD 2C 47.8 % LV Ejection Fraction 2C AL 45.5 % LA Diameter 3.1 cm RA Systolic Volume 4C AL 32.3 ml RA Systolic Volume 4C MOD 33.1 ml LA Sys Volume AL 28.9 cm cubed LA Sys Volume Index AL 15.0 cm cubed/m squared Aorta at Sinotubular Diameter 2.3 cm IVC Diameter 1.9 cm M-MODE LA Ao Ratio MM 1.8 AV Cusp Separation MM 1.5 cm DOPPLER AV Peak Velocity 140.0 cm/s LVOT Peak Velocity 107.0 cm/s AV Area Cont Eq vti 2.1 cm squared AV Area Cont Eq pk 2.5 cm squared MV Peak Velocity 96.0 cm/s MV Area PHT 4.5 cm squared Mitral E to A Ratio 1.3 TV Peak Velocity 242.7 cm/s TR Peak Velocity 340.0 cm/s TR Peak Gradient 46.2 mmHg TR Mean Velocity 245.0 cm/s TR Mean Gradient 27.0 mmHg TR Velocity Time Integral 84.8 cm PV Peak Velocity 84.0 cm/s RV Ejection Time 0.3 s FINDINGS Left Ventricle Left ventricle is mildly dilated. LV systolic function is moderately reduced with EF of 35 to 40%. Severe hypokinesis to akinesis of apical wall. Severe hypokinesis of mid to apical anterior and anterolateral lozano. Right Ventricle Normal in size and function. Right Atrium Normal in size. Left Atrium Normal in size. Mitral Valve Mild mitral annular calcification. Mild mitral regurgitation. Aortic Valve Structurally normal aortic valve. No significant stenosis or regurgitation. Tricuspid Valve Insufficient TR jet to calculate RVSP. Pulmonic Valve Mild pulmonic regurgitation Pericardium Normal Aorta Normal in size IVC Appears to be normal CONCLUSIONS Left ventricle is mildly dilated. LV systolic function is moderately reduced with EF of 35 to 40%. Mild mitral regurgitation Mild mitral regurgitation Mild pulmonic regurgitation No comparison studies are available. Clemente Guidry MD (Electronically Signed) Final Date: 18 January 2024 11:46 S
[2024-01-18] MEDS: aspirin 81 mg EC Tablet PO (08:19)
[2024-01-18] MEDS: clopidogrel 75 mg Tablet PO (08:19)
[2024-01-18] MEDS: losartan 50 mg Tablet PO (08:19)
--- NOTE | 2024-01-18 10:00 | P.PN_ITS ---
Subjective 2 Subjective: Patient underwent successful revascularization of proximal to mid LAD with 2 stents last night. Also had severe long RCA stenosis and had PCI of proximal to distal RCA with 2 stents. She is chest pain-free now. Vitals/I&O/Wt Last Vital Signs Temp 98.1 F 01/18/24 00:21 Pulse 68 01/18/24 06:15 Resp 20 H 01/18/24 06:15 BP 119/80 01/18/24 08:19 Pulse Ox 89 L 01/18/24 06:15 O2 Del Method Room Air 01/18/24 01:13 01/17/24 01/18/24 01/18/24 22:59 06:59 14:59 Intake Total 120 / 120 Balance 120 / 120 Weight last 48 hrs Weight 179 lb 4.8 oz Weight 179 lb 4.8 oz Weight 170 lb Physical Exam 2 Narrative: GENERAL: Patient is alert, awake and oriented x3. [] NECK: No jugular vein distension. [] HEENT: No cyanosis. No icterus. No pallor. [] HEART: Regular S1 and S2. No murmur, rub or gallop. [] LUNGS: Clear to auscultate bilaterally. [] CENTRAL NERVOUS SYSTEM: Grossly nonfocal. [] EXTREMITIES: Lower extremities with no edema bilaterally Data 01/18/24 03:49 01/18/24 03:49 A&P Assessment and plan (1) NSTEMI (non-ST elevated myocardial infarction): (2) Hyperlipidemia: Plan Patient presented with high risk non-ST elevation IA. Urgent cardiac catheterization revealed severe proximal LAD stenosis and critical long mid LAD stenosis. Successful revascularization with 2 stents. She also had severe proximal to distal RCA serial lesions. Initial plan was to perform staged PCI of RCA however she continued having chest pain after LAD intervention. Had PCI of RCA with 2 stents. Continue dual antiplatelet therapy with aspirin and Plavix. High intensity statin therapy We will stop fluids and administer lasix 20mg IV ECHO pending Losartan and metoprolol ordered. Attestations 2 Medical Necessity Statement*: Care expected to cross 2 midnights. Coding Level of Care Code Acute Code for [facility] Diagnoses NSTEMI (non-ST elevated myocardial infarction) I21.4 Hyperlipidemia E78.5
[2024-01-18] MEDS: FUROsemide 10 mg/mL SDV 2mL 20 MG IVP (10:13)
--- NOTE | 2024-01-18 18:21 | PC.NURSE ---
Patient noted to have new confusion during evening rounding approximately 0605. She does not recall staying in hospital overnight, is noted to be slightly anxious pacing the floor in her room- sister and noted at bedside. This nurse readdressed the importance of calling for nurse for assistance when getting put of bed. Patient stated, I don't remember talking about this before. and sister both agree that Mrs. Birmingham is acting outside of her normal. states patient drinks about 3 glasses of wine a night at home and she smokes regularly as well. Patient states that she has not withdrawn from alcohol in the past and she has stopped cold turkey before. This nurse notified Dr. Guidry of status change and he will consult hospitalist team.
--- NOTE | 2024-01-18 18:57 | P.CONIM_ITS ---
Providers/Reason For Consult 2 Consulting Physician/Specialty*: Cardiology Reason for Consult*: Altered mental state Attending Physician: Clemente Guidry M.D Primary Care Provider: Noe Johansen DO History of Present Illness History of Present Illness 63-year-old lady with history of smoking, coronary disease, hyperlipidemia, depression, was admitted after presenting with chest pain, found to have NSTEMI, with worsening chest pain was taken to [facility] for coronary angiography with finding of high-grade lesion of LAD and RCA underwent PCI with stenting. She has been feeling somewhat antsy, roaming around the room, having hard time settling down with reported mild confusion. Additionally oxygen had been low this morning saturation at 89%, she has been coughing, producing phlegm. According to history obtained from her sister and she has been antsy, restless. Review of Systems 2 Const: Denies: fever(s), chills, body aches or malaise ENMT: Denies: throat pain Card: Denies: chest pain, edema, pre-syncope or dyspnea on exertion Resp: Reports: dyspnea, productive cough and change in phlegm color; Denies: hemoptysis GI: Denies: abdominal pain, nausea, vomiting, diarrhea, constipation, hematochezia or melena : Denies: flank pain, urinary frequency or hematuria Musc: Denies: back pain, joint swelling or joint redness Skin/Breast: Denies: rash or new lesions Neuro: Denies: headache(s) Medications/Allergies Home Medications Medication Instructions Recorded Confirmed Last Taken Type atorvastatin 40 mg tablet 40 mg PO 01/18/24 Unknown History escitalopram oxalate 20 mg tablet 20 mg 01/18/24 Unknown History estradiol 2 mg tablet 2 mg 01/18/24 Unknown History pantoprazole 40 mg tablet,delayed 40 mg PO 01/18/24 Unknown History release sucralfate 1 gram tablet 1 g PO 01/18/24 Unknown History Allergies Allergy/AdvReac Type Severity Reaction Status Date / Time No Known Allergies Allergy Verified 01/17/24 20:23 Current Medications Generic Name Dose Route Start Last Admin Trade Name Freq PRN Reason Stop Dose Admin Aspirin 81 mg 01/18/24 09:00 01/18/24 08:19 Aspirin 81 Mg Ec Tablet PO 81 mg DAILY FAMILIA Administration Clopidogrel Bisulfate 75 mg 01/18/24 09:00 01/18/24 08:19 Clopidogrel 75 Mg Tablet PO 75 mg DAILY FAMILIA Administration Nitroglycerin/Dextrose 50 mg in 250 mls @ 0 mls/hr 01/17/24 21:00 01/18/24 08:00 Nitroglycerin Drip IV 0 mcg/min .Q0M FAMILIA 0 mls/hr Titration Protocol Per Protocol Losartan Potassium 50 mg 01/18/24 09:00 01/18/24 08:19 Losartan 50 Mg Tablet PO 50 mg DAILY FAMILIA Administration Metoprolol Tartrate 50 mg 01/17/24 23:50 01/18/24 17:49 Metoprolol Tartrate 50 Mg Tablet PO 50 mg BID FAMILIA Administration PFSH Acute 2 PFSH: Medical History (Updated 01/18/24 @ 19:17 by Buster Cavanaugh MD) CAD (coronary artery disease) Social History (Updated 01/18/24 @ 19:14 by Buster Cavanaugh MD) Smoking and tobacco/nicotine status: current every day tobacco/nicotine user Alcohol intake: current Marital status: Vitals/I&O/Wt Last Vital Signs Temp 98.3 F 01/18/24 18:00 Pulse 66 01/18/24 17:00 Resp 18 01/18/24 17:00 BP 144/66 01/18/24 18:00 Pulse Ox 89 L 01/18/24 18:00 O2 Del Method Room Air 01/18/24 01:13 01/18/24 01/18/24 01/18/24 06:59 14:59 22:59 Intake Total 1150.90 / 1150.90 480 / 1630.90 Balance 1150.90 / 1150.90 480 / 1630.90 Weight last 48 hrs Weight 81.329 kg Weight 81.329 kg Weight 77.111 kg Physical Exam 2 Narrative: Accompanied by her and sister. Const: COMMON NORMALS: patient oriented x3 and alert GENERAL APPEARANCE: c ooperative ORIENTATION/CONSCIOUSNESS: Yes awake HENMT: COMMON NORMALS: oropharynx normal Neck/C-Spine: COMMON NORMALS: no JVD Resp: COMMON NORMALS: normal respiratory effort AUSCULTATION: wheezes Cardio: COMMON NORMALS: no JVD, regular rhythm, S1 normal heart sound present, S2 normal heart sound present and No murmurs present (Cardio) RHYTHM: regular rhythm HEART SOUNDS: S1 normal heart sound present and S2 normal heart sound present GI: COMMON NORMALS: Normal to inspection, nondistended, normoactive bowel sounds present, Soft to palpation and non-tender PALPATION: Yes Soft to palpation Extremity: COMMON NORMALS: no joint enlargement and no pedal edema Neuro: COMMON NORMALS: patient oriented x3 and moves all extremities S ENSORIUM/ORIENTATION: Yes alert OTHER: Fidgety and restless. Skin: COMMON NORMALS: no rashes or lesions noted GENERAL SKIN EXAM: no rashes or lesions noted Data 01/18/24 03:49 01/18/24 03:49 A&P Assessment and plan (1) Acute encephalopathy: Reported altered mental state. Tonight she is becoming antsy, restless, with reported mild confusion. Acute metabolic encephalopathy with noted hypoxia oxygen down to 89% on room air this morning, with COPD exacerbation with cough productive purulent phlegm, wheezing, dyspnea, hypoxia oxygen down to 89%, also community-acquired pneumonia with leukocytosis, hypoxia, infiltrates on chest x- ray. Reviewed vitals, CBC, INR, PTT, CMP, troponin, NT proBNP, UA, respiratory viral panel, chest x-ray, echocardiogram, cardiology note, discussed with cardiology provider. Discussed with nursing staff, family. Per history obtained from family she has been restless, and see, not able to settle down. She confirms this herself. Per discussion with her we will add nicotine replacement, she does have history of rash with nicotine patches/possibly adhesive allergy reported. Will give nicotine lozenges. Additionally with possible alcohol withdrawal will add CIWA protocol as per discussion with her and family for relief of possible withdrawal/anxiety symptoms. Encourage alcohol cessation and abstinence. Additionally treat pneumonia and COPD exacerbation, start ceftriaxone, azithromycin, breathing treatments, monitor oxygenation, oxygen support as needed to maintain saturation 88-92%. Resume escitalopram. (2) Community acquired pneumonia: With cough productive of phlegm, hypoxia this morning, with infiltrates on chest x-ray, will treat community-acquired pneumonia with ceftriaxone, azithromycin. Obtain sputum culture. Reviewed respiratory viral panel, negative. (3) COPD exacerbation: COPD with severe exacerbation with purulent productive cough, with dyspnea on exertion, with hypoxia this morning down to 89% on room air, with wheezing on exam, will give antibiotics as above, will give IV Solu-Medrol 30 mg 3 times daily IV, breathing treatments, collect sputum culture. Monitor for risk of hyperglycemia, hypertension, encephalopathy with IV steroids. At home uses Trelegy. (4) NSTEMI (non-ST elevated myocardial infarction): Continue assessment management as per cardiology, continue aspirin, Plavix, statin, monitor on telemetry with risk of arrhythmia. (5) Smoking: Encourage smoking cessation. Nicotine lozenges. Reported rash with nicotine patch in the past. Plan Depression: Resume escitalopram HLD: Continue statin EtOH use: She states he is not a heavy drinker but does have 2-3 drinks a night, sometimes none. Encourage cessation. Treat possible withdrawal as above. Consult Attestations 2 Medical Necessity Statement: Continue admission for assessment management following NSTEMI, acute encephalopathy, community-acquired pneumonia, COPD exacerbation, additional comorbidities as above. Diagnoses Acute encephalopathy G93.40 Community acquired pneumonia J18.9 COPD exacerbation J44.1 NSTEMI (non-ST elevated myocardial infarction) I21.4 Smoking F17.200
[2024-01-18] MEDS: nicotine 4 mg lozenge MUCOUS MEM (20:07)
[2024-01-18] MEDS: temazepam 15 mg Capsule PO (20:08)
[2024-01-18] MEDS: atorvastatin 40 mg Tablet PO (20:08)
[2024-01-18] MEDS: methylPREDNISolone sod succ 40 mg/mL INJ 30 MG IVP (20:08)
[2024-01-18] MEDS: escitalopram 10 mg Tablet 20 MG PO (20:08)
[2024-01-18] MEDS: azithromycin 500 MG in sodium chloride 0.9% 250 ML 250 MG IV (20:10)
[2024-01-18] MEDS: cefTRIAXone 1,000 mg SDV 1000 MG IVP (20:11)
[2024-01-19] VITALS (17 sets, daily range): BP systolic 102–168; BP diastolic 49–95; PULSE 61–70; RESP 14–24; TEMP 36.1–36.4; O2SAT 91–97
[2024-01-19] MEDS: methylPREDNISolone sod succ 40 mg/mL INJ 30 MG IVP ×2 (03:12→11:10)
[2024-01-19 04:58] LABS: Basophils % 0.2 %; Eosinophils # 0.3 10^3/uL (0.0-0.8); Eosinophils % 1.9 %; Hematocrit 36.6 % (36-47); Lymphocytes # 5.3 10^3/uL (0.8-4.8); Lymphocytes % 33.9 %; Mean Corpuscular HGB Conc 33.1 g/dL (30-55); Mean Corpuscular Hemoglobin 30.1 pg (27-33); Mean Platelet Volume 10.1 fL (7.4-10.4); Monocytes # 0.8 10^3/uL (0.2-0.9); Monocytes % 4.9 %; Neutrophils # 9.07 10^3/uL (1.8-7.7); Neutrophils % 58.6 %; Nucleated Red Blood Cells % 0 %; Platelet Count 369 10^3/cmm (157-399); Red Blood Count 4.02 10^6/uL (3.85-5.65); Red Cell Distribution Width 14.5 % (12.1-15.1); White Blood Count 15.49 10^3/uL (3.29-11.43)
[2024-01-19 05:21] LABS: Anion Gap 13.7 (5-19); Blood Urea Nitrogen 14 mg/dL (8-23); Calcium 8.6 mg/dL (8.5-10.5); Carbon Dioxide 23 mmol/L (22-29); Chloride 104 mmol/L (98-107); Creatinine Clr Calc Pharmacy 99.5437; Glomerular Filtration Rate 101.6 mL/min (90-130); Glucose 114 mg/dL (65-115); Osmolality Calculated 285 mOsm/kg (285-295); Potassium 3.7 mmol/L (3.5-5.1); Sodium 137 mmol/L (136-145)
[2024-01-19] MEDS: multivitamin therapeutic Tablet 1 TAB PO (08:08)
[2024-01-19] MEDS: losartan 50 mg Tablet PO (08:08)
[2024-01-19] MEDS: folic acid 1 mg Tablet PO (08:09)
[2024-01-19] MEDS: thiamine 100 mg Tablet PO (08:09)
[2024-01-19] MEDS: metoprolol tartrate 50 mg Tablet PO (08:09)
[2024-01-19] MEDS: aspirin 81 mg EC Tablet PO (08:09)
[2024-01-19] MEDS: clopidogrel 75 mg Tablet PO (08:09)
--- NOTE | 2024-01-19 10:20 | P.PN_ITS ---
Subjective 2 Subjective: Feels well today. No acute interim events. Off oxygen today. Saturating 97% on room air. Afebrile. Has intermittent bouts of cough, states this is usual for her. Still a chronic smoker. Medications: Reviewed: Yes Vitals/I&O/Wt Last Vital Signs Temp 97.0 F L 01/19/24 10:00 Pulse 65 01/19/24 10:00 Resp 24 H 01/19/24 10:00 BP 102/49 01/19/24 10:00 Pulse Ox 97 01/19/24 09:00 O2 Del Method Room Air 01/19/24 08:04 01/18/24 01/19/24 01/19/24 22:59 06:59 14:59 Intake Total 730 / 1880.90 100 / 1979.90 240 / 240 Balance 730 / 1880.90 / 1979. 240 / 240 Weight last 48 hrs Weight 81.5 kg Weight 81.329 kg Weight 81.329 kg Weight 77.111 kg Physical Exam 2 Narrative: General: No acute distress, AO x3 HEENT: PERRLA, pupils bilaterally equal and reactive, pallors not present Chest: Normal vesicular breath sounds, no added sounds, equal good air entry bilaterally CVS: S1-S2 regular, no murmurs, no tachycardia, no gallops, no rubs Abdomen: Soft, nontender, no organomegaly, bowel sounds present Neuro: No focal deficits, no facial deformity, AO x3, power 5/5 in all limbs Data 01/19/24 04:01 01/19/24 04:01 A&P Assessment and plan (1) Acute encephalopathy: Resolved now (2) Community acquired pneumonia: With cough productive of phlegm, hypoxia, with infiltrates on chest x-ray, Cannot rule out possibility of community-acquired pneumonia. Though favor the bilateral infiltrates to be more likely to be pulmonary edema. on CTX and azithromycin, levaquin 750mg daily x 3 days (3) COPD exacerbation: Short course of prednisone 40mg x 3 days patient states she has terelegy at home which she started one week ago. Encouraged to use daily and not as a prn. Needs refill on her rescue inhaler Albuterol which has been provided (4) NSTEMI (non-ST elevated myocardial infarction): Continue assessment management as per cardiology, continue aspirin, Plavix, statin, monitor on telemetry with risk of arrhythmia. (5) Smoking: Encourage smoking cessation. Nicotine lozenges. Reported rash with nicotine patch in the past. Plan Depression: Resume escitalopram HLD: Continue statin EtOH use: She states he is not a heavy drinker but does have 2-3 drinks a night, sometimes none. Encourage cessation. Treat possible withdrawal as above. Attestations 2 Medical Necessity Statement*: per admitting Coding Level of Care Code Acute Code for [facility] Diagnoses Acute encephalopathy G93.40 Community acquired pneumonia J18.9 COPD exacerbation J44.1 NSTEMI (non-ST elevated myocardial infarction) I21.4 Smoking F17.200
--- NOTE | 2024-01-19 10:45 | P.DS_ITS ---
Discharge Providers Date of Admission: 01/17/24 23:51 Date of Discharge: January 19, 2024 Attending Provider at Admission: Clemente Guidry M.D Attending Provider at Discharge: Clemente Guidry M.D Primary Care Provider: Noe Johansen DO Diagnoses at Discharge Discharge Diagnosis (1) Acute encephalopathy: Status: Resolved (2) Community acquired pneumonia: Status: Acute (3) COPD exacerbation: Status: Acute (4) NSTEMI (non-ST elevated myocardial infarction): Status: Acute (5) Smoking: Status: Acute (6) Systolic congestive heart failure: Status: Acute Reason for Visit Reason for Visit: arm pain, sob Brief History: 63 year old female with past medical his tory of hyperlipidemia presented with substernal chest pressure that feels like stabbing pain and heartburn. Radiating to arms. Associated with diaphoresis and nausea. This was going on since afternoon. On and off however now got severe. In the ER EKG did not demonstrate acute ST elevation. Initial troponin is 174. As chest pain is getting worse, decision made to activate cardiac Clinical Team Manager for urgent cardiac catheterization with possible PCI. Hospital Course Hospital Course Coronary angiogram demonstrated critical proximal to mid LAD stenosis status post PCI with 2 stents. Initial plan was to perform staged PCI of proximal to distal RCA however while patient was still on Clinical Team Manager table continued complaining of chest pain. So we proceeded with PCI of RCA with 2 stents as well. Chest pain resolved. Echo shows a moderately reduced LV systolic function with EF of 35 to 40%. Yesterday patient had an episode of confusion. Medicine team was consulted. Her WBC count was elevated. She had some hypoxia as well. She was put on COPD therapy. Was also given a dose of Lasix. Confusion resolved. Today patient is doing well. Will be discharged home on dual antiplatelet therapy, statin therapy, metoprolol. Smoking cessation strongly recommended. Close outpatient cardiology follow up. Physical Exam Narrative: GENERAL: Patient is alert, awake and oriented x3. [] NECK: No jugular vein distension. [] HEENT: No cyanosis. No icterus. No pallor. [] HEART: Regular S1 and S2. No murmur, rub or gallop. [] LUNGS: Clear to auscultate bilaterally. [] CENTRAL NERVOUS SYSTEM: Grossly nonfocal. [] EXTREMITIES: Lower extremities with no edema bilaterally Discharge Data Studies Completed and Pending Completed Studies During Hospitalization Category Date Time Status XR chest 1V portable [id number] Stat Exams 01/17/24 20:18 Completed CV. echo complete* [id number] Routine Ultrasound 01/18/24 05:52 Completed Pending at discharge Category Date Time Status SENIOR UI [employer]X DEVELOPER request for service Routine Exams 01/17/24 22:56 Taken SENIOR UI UX DEVELOPER request for service Stat Exams 01/17/24 21:41 Taken Basic Metabolic Panel AM LABS Lab 01/20/24 04:00 Ordered Complete Blood Count w/Auto AM LABS Lab 01/20/24 04:00 Ordered Sputum Culture and Gram Stain Routine Lab 01/18/24 18:57 Uncollected Radiology Impressions Chest X-Ray 01/17/24 20:18 IMPRESSION: Bilateral mid to lower lung field airspace infiltrates. Laboratory Results WBC 15.49 10^3/uL (3.29-11.43) H 01/19/24 04:01 RBC 4.02 10^6/uL (3.85-5.65) 01/19/24 04:01 Hgb 12.10 g/dL (11.27-16.99) 01/19/24 04:01 Hct 36.6 % (36-47) 01/19/24 04:01 MCV 91.0 fl (85-98) 01/19/24 04:01 MCH 30.1 pg (27-33) 01/19/24 04:01 MCHC 33.1 g/dL (30-55) 01/19/24 04:01 RDW 14.5 % (12.1-15.1) 01/19/24 04:01 Plt Count 369 10^3/cmm (157-399) 01/19/24 04:01 MPV 10.1 fL (7.4-10.4) 01/19/24 04:01 Neut % (Auto) 58.6 % 01/19/24 04:01 Lymph % (Auto) 33.9 % 01/19/24 04:01 Jackson % (Auto) 4.9 % 01/19/24 04:01 Eos % (Auto) 1.9 % 01/19/24 04:01 Baso % (Auto) 0.2 % 01/19/24 04:01 Neut # (Auto) 9.07 10^3/uL (1.8-7.7) H 01/19/24 04:01 Lymph # (Auto) 5.3 10^3/uL (0.8-4.8) H 01/19/24 04:01 Jackson # (Auto) 0.8 10^3/uL (0.2-0.9) 01/19/24 04:01 Eos # (Auto) 0.3 10^3/uL (0.0-0.8) 01/19/24 04:01 Baso # (Auto) 0.0 10^3/uL (0.0-0.1) 01/19/24 04:01 Nucleated RBC % (auto) 0 % 01/19/24 04:01 Nucleated RBCs # 0.0 /100WBC 01/19/24 04:01 PT 12.60 SECONDS (12.1-14.9) 01/17/24 20:21 INR 0.91 (0.8-1.2) 01/17/24 20:21 APTT 42.6 SECONDS (23.9-36.7) H 01/18/24 03:49 Sodium 137 mmol/L (136-145) 01/19/24 04:01 Potassium 3.7 mmol/L (3.5-5.1) 01/19/24 04:01 Chloride 104 mmol/L (98-107) 01/19/24 04:01 Carbon Dioxide 23 mmol/L (22-29) 01/19/24 04:01 Anion Gap 13.7 (5-19) 01/19/24 04:01 BUN 14 mg/dL (8-23) 01/19/24 04:01 Creatinine 0.6 mg/dL (0.5-0.9) 01/19/24 04:01 GFR Calculation 101.6 mL/min (90-130) 01/19/24 04:01 Glucose 114 mg/dL (65-115) 01/19/24 04:01 Calculated Osmolality 285 mOsm/kg (285-295) 01/19/24 04:01 Calcium 8.6 mg/dL (8.5-10.5) 01/19/24 04:01 Total Bilirubin 0.2 mg/dL (0.15-1.2) 01/17/24 20:21 AST 24 U/L (0-32) 01/17/24 20:21 ALT 26 U/L (0-33) 01/17/24 20:21 Alkaline Phosphatase 118 U/L (35-105) H 01/17/24 20:21 Troponin T Baseline 174 ng/L (0-10) H* 01/17/24 20:21 NT-Pro-B Natriuret Pep 67 pg/mL (0-125) 01/17/24 20:21 Total Protein 6.8 g/dL (6.6-8.7) 01/17/24 20:21 Albumin 4.4 g/dL (3.5-5.2) 01/17/24 20:21 Globulin 2.4 g/dL (1.3-4.6) 01/17/24 20:21 Urine Color Yellow (Yellow) 01/18/24 00:55 Urine Appearance Clear (CLEAR) 01/18/24 00:55 Urine pH 6.0 (5-7) 01/18/24 00:55 Ur Specific [place] 1.093 (1.005-1.030) H 01/18/24 00:55 Urine Protein 1+ (Negative) A 01/18/24 00:55 Urine Glucose (UA) Negative (Normal) 01/18/24 00:55 Urine Ketones Negative (Negative) 01/18/24 00:55 Urine Blood 3+ (Negative) A 01/18/24 00:55 Urine Nitrate Negative (Negative) 01/18/24 00:55 Urine Bilirubin Negative (Negative) 01/18/24 00:55 Urine Urobilinogen 1.0 mg/dL (Negative) 01/18/24 00:55 Ur Leukocyte Esterase Negative (Negative) 01/18/24 00:55 Urine RBC 3-5 /hpf (0-2) 01/18/24 00:55 Urine WBC 0-5 /hpf (0-5) 01/18/24 00:55 Ur Squamous Epith Cells 0-5 /hpf (0-5) 01/18/24 00:55 Amorphous Sediment Not Reportable 01/18/24 00:55 Urine Bacteria None seen /hpf (NONE) 01/18/24 00:55 Hyaline Casts 0.40 /lpf 01/18/24 00:55 Adenovirus (PCR) Not detected (NOT DETECT) 01/18/24 00:40 C. pneumoniae DNA (PCR) Not detected (NOT DETECT) 01/18/24 00:40 Coronavirus 229E (PCR) Not detected (NOT DETECT) 01/18/24 00:40 Human Metapneumovir PCR Not detected (NOT DETECT) 01/18/24 00:40 Influenza A (H1) PCR Not detected (NOT DETECT) 01/18/24 00:40 Influ A (H1/09) PCR Not detected (NOT DETECT) 01/18/24 00:40 Influenza A (H3) PCR Not detected (NOT DETECT) 01/18/24 00:40 Influenza Type A (PCR) Not detected (NOT DETECT) 01/18/24 00:40 Influenza Type B (PCR) Not detected (NOT DETECT) 01/18/24 00:40 M. pneumoniae (PCR) Not detected (NOT DETECT) 01/18/24 00:40 Parainfluenza 1 (PCR) Not detected (NOT DETECT) 01/18/24 00:40 Parainfluenza 2 (PCR) Not detected (NOT DETECT) 01/18/24 00:40 Parainfluenza 3 (PCR) Not detected (NOT DETECT) 01/18/24 00:40 Parainfluenza 4 (PCR) Not detected (NOT DETECT) 01/18/24 00:40 RSV Type A (PCR) Not detected (NOT DETECT) 01/18/24 00:40 RSV Type B (PCR) Not detected (NOT DETECT) 01/18/24 00:40 Entero/Rhino (PCR) Not detected (NOT DETECT) 01/18/24 00:40 SARS-CoV-2 (PCR) Not detected (NOT DETECT) 01/18/24 00:40 Vitals Last Vital Signs Temp 97.0 F L 01/19/24 10:00 Pulse 65 01/19/24 10:00 Resp 24 H 01/19/24 10:00 BP 102/49 01/19/24 10:00 Pulse Ox 97 01/19/24 09:00 O2 Del Method Room Air 01/19/24 08:04 Discharge Plan Discharge Patient Disposition: Home Condition: Stable Prescriptions: New levofloxacin 750 mg tablet 750 mg PO DAILY 3 Days Qty: 3 0RF prednisone 20 mg tablet 40 mg PO DAILY 3 Days Qty: 6 0RF albuterol sulfate 90 mcg/actuation aerosol powdr breath activated 1 inh inhalation QID PRN (Reason: wheezing) Qty: 1 0RF clopidogrel 75 mg Tablet 75 mg PO DAILY Qty: 90 3RF aspirin 81 mg Tablet,Delayed Release (Dr/Ec) 81 mg PO DAILY Qty: 90 3RF metoprolol tartrate 50 mg Tablet 50 mg PO BID Qty: 120 3RF Lasix 20 mg tablet 20 mg PO DAILY Qty: 30 0RF Continued atorvastatin 40 mg tablet 40 mg PO escitalopram oxalate 20 mg tablet 20 mg pantoprazole 40 mg tablet,delayed release (DR/EC) 40 mg PO sucralfate 1 gram tablet 1 g PO Discontinued estradiol 2 mg tablet 2 mg Discharge Orders: Discharge Order (Routine); Ordered 01/19/24 Ordered By: Clemente Guidry Referrals: Neha Taylor FNP [Nurse Practitioner] - 4-7 days Discharge Diet: Cardiac Discharge Activity: Increase activity as tolerated Patient Instructions: Metoprolol (By mouth), Furosemide (By mouth), Albuterol (By breathing), Prednisone (By mouth), Aspirin (By mouth), Levofloxacin (By mouth), Clopidogrel (By mouth), Viral Pneumonia (DC), How to Stop Smoking (DC), Coronary Intravascular Stent Placement (DC), Opioid Safety, Post Angiogram Home Care Instructions Discharge Attestations Time Spent in Discharge Care*: greater than 30 min Quality Metrics Clinical Quality Measures [ Acute Myocardial Infaction { Clinical Trial Participant: No; Contraindication to aspirin: None; Aspirin prescribed; Contraindication to statin: None; Statin prescribed; Contraindication to PCI: None; PCI performed;}] Coding Level of Care Code Acute Code for [facility] Fwd Diagnoses Acute encephalopathy G93.40 Community acquired pneumonia J18.9 COPD exacerbation J44.1 NSTEMI (non-ST elevated myocardial infarction) I21.4 Smoking F17.200 Systolic congestive heart failure I50.20
--- NOTE | 2024-01-19 11:21 | PC.NURSE ---
Patient received discharge orders. All instructions and activity restrictions given to patient and patient verbalized understanding. All prescriptions sent to patients preferred pharmacy. All IVs removed. Patient ambulated with staff to main exit at 1120 with all belongings.
== END 2024-01-19 11:20 | disposition home or self-care (01) | DRG 321 ==
LOC: ER 20:51 → CCL 21:56 → ICU 23:52
PROVIDERS: Admitting Provider Internal Medicine; Emergency Provider Emergency Medicine; PCP Electrodiagnostic Medicine; Visit Provider Internal Medicine
PROC: 027137Z Dilation of Coronary Artery, Two Arteries with Four or More Drug-eluting Intraluminal Devices, Percutaneous Approach (ICD-10-PCS; principal; 2024-01-17 22:00)
PROC: 027137Z Dilation of Coronary Artery, Two Arteries with Four or More Drug-eluting Intraluminal Devices, Percutaneous Approach (ICD-10-PCS; 2024-01-17 22:00)
DX: I21.4 Non-ST elevation (NSTEMI) myocardial infarction (principal); G93.41 Metabolic encephalopathy; J18.9 Pneumonia, unspecified organism; J44.1 Chronic obstructive pulmonary disease with (acute) exacerbation; J44.0 Chronic obstructive pulmonary disease with (acute) lower respiratory infection; I50.20 Unspecified systolic (congestive) heart failure; E78.5 Hyperlipidemia, unspecified; I25.10 Atherosclerotic heart disease of native coronary artery without angina pectoris; F32.A Depression, unspecified; F17.200 Nicotine dependence, unspecified, uncomplicated; R09.02 Hypoxemia; Z79.82 Long term (current) use of aspirin; Z79.02 Long term (current) use of antithrombotics/antiplatelets; Z11.52 Encounter for screening for COVID-19
CPT/HCPCS: 36415; 71045; 80048; 80053; 81003; 81015; 83880; 84484; 85025; 85347; 85610; 85730; 87486; 87581; 87633; 92978; 92979; 93005; 93306; 93454; 96365; 96372; 96374; 96375; 96376; 99152; 99153; 99285; 99291; C1725; C1753; C1769; C1874; C1887; C1894; C9600; C9601; J0456; J0461; J0696; J1644; J1940; J2250; J2270; J2405; J2919; J3010; J3411; J3490; J7030; J7050; Q9967

== ENCOUNTER 2024-01-20 13:05 | Emergency (ER) | payer SELFPAY ==
[2024-01-20] VITALS (31 sets, daily range): BP systolic 100–150; BP diastolic 64–94; PULSE 51–57; RESP 10–29; TEMP 36.4; O2SAT 91–99
--- NOTE | 2024-01-20 13:07 | ECG_ITS ---
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 Measurements Intervals [place] Rate: 57 P: 56 GA: 165 QRS: 36 QRSD: 102 T: 237 QT: 490 QTc: 478 Interpretive Statements SINUS BRADYCARDIA POSSIBLE LEFT ATRIAL ENLARGEMENT [-0.1mV P-WAVE IN V1/V2] INCOMPLETE RIGHT BUNDLE BRANCH BLOCK [90+ ms QRS DURATION, TERMINAL R IN V1/V2, 40+ ms S IN I/aVL/V4/V5/V6] ST DEVIATION AND MODERATE T-WAVE ABNORMALITY, CONSIDER ANTEROLATERAL ISCHEMIA [-0.1+ mV T-WAVE IN V3-V6] ST DEVIATION AND MODERATE T-WAVE ABNORMALITY, CONSIDER INFERIOR ISCHEMIA [-0.1+ mV T-WAVE IN II/aVF] Compared to ECG 01/18/2024 02:28:25 Incomplete right bundle-branch block now present Sinus rhythm no longer present Myocardial infarct finding no longer present T-wave abnormality still present Possible ischemia still present Electronically Signed On 01-20-2024 16:41:06 CDT by Clemente Guidry M.D. [email or web address]
--- NOTE | 2024-01-20 13:07 | XR_ITS ---
WS: [id number] Examination: XR chest 1V portable [id number] Reason for Exam: cp Date: 01/20/2024 Comparison: 01/17/2024 Findings: The heart is nonenlarged. The mediastinum is not widened. There is no failure or effusion. There is no dense consolidation. XR/XR chest 1V portable [id number] Impression: No acute lung process is seen.
--- NOTE | 2024-01-20 13:14 | W.ED.CHESTPA ---
HPI - Chest Pain General: Chief Complaint: Chest Pain Stated Complaint: Sob, chest pain, numbness, 4 stints on Sat Time Seen by Provider: 01/20/24 13:13 History of Present Illness: 63-year-old female presents to the emergency room claiming shortness of breath and chest discomfort. She was seen 3 days ago had multiple stents placed she complaining of being short of breath. When she initially presented she was hyperventilating extremely anxious. She complaining of chest discomfort numbness and tingling. No nausea or vomiting. She was complaining of chest tightness and heaviness. She denies any chest pain or diaphoresis Associated symptoms: Deny abdominal pain, dyspnea or fever(s) Related Data Home Medications Medication Instructions Recorded Confirmed atorvastatin 40 mg tablet 40 mg PO 01/18/24 escitalopram oxalate 20 mg tablet 20 mg 01/18/24 pantoprazole 40 mg tablet,delayed 40 mg PO 01/18/24 release sucralfate 1 gram tablet 1 g PO 01/18/24 Previous Rx's Medication Instructions Recorded albuterol sulfate 90 mcg/actuation 1 inh inhalation QID PRN wheezing 01/19/24 breath activated powder inhaler #1 ea aspirin 81 mg tablet,delayed 81 mg PO DAILY #90 tabs 01/19/24 release clopidogrel 75 mg tablet 75 mg PO DAILY #90 tabs 01/19/24 levofloxacin 750 mg tablet 750 mg PO DAILY 3 days #3 tabs 01/19/24 metoprolol tartrate 50 mg tablet 50 mg PO BID #120 tabs 01/19/24 prednisone 20 mg tablet 40 mg (2 x 20 mg) PO DAILY 3 days 01/19/24 #6 tabs apixaban 5 mg (74 tabs) tablets in See Rx Instructions PO .COMPLEX 01/20/24 a dose pack (Eliquis DVT-PE Treat #74 ea 30D Start) isosorbide mononitrate 30 mg 30 mg PO DAILY #30 tabs 01/20/24 tablet,extended release 24 hr Allergies Allergy/AdvReac Type Severity Reaction Status Date / Time No Known Allergies Allergy Verified 01/20/24 14:06 Review of Systems Const: Denies: fever(s) or chills Card: Reports: chest pain Resp: Denies: dyspnea GI: Denies: abdominal pain : Denies: dysuria, urinary frequency or urinary urgency Musc: Denies: neck pain or back pain Skin/Breast: Denies: rash PFSH ED PFSH: Medical History (Updated 01/20/24 @ 17:10 by Anastacio London DO) Community acquired pneumonia CAD (coronary artery disease) Social History (Updated 01/18/24 @ 19:14 by Buster Cavanaugh MD) Smoking and tobacco/nicotine status: current every day tobacco/nicotine user Alcohol intake: current Marital status: Physical Exam Const: COMMON NORMALS: no acute distress GENERAL APPEARANCE: cooperative and comfortable ORIENTATION/CONSCIOUSNESS: Yes awake, Yes oriented to person, Yes oriented to place and Yes oriented to time HENMT: COMMON NORMALS: normocephalic, atraumatic and hearing grossly normal bilaterally HEAD & SCALP: normocephalic and atraumatic Resp: COMMON NORMALS: normal respiratory effort, No retractions, No use of accessory muscles and clear to auscultation bilaterally AUSCULTATION: clear to auscultation bilaterally Cardio: COMMON NORMALS: regular rate, regular rhythm and No murmurs present (Cardio) RATE: regular rate RHYTHM: regular rhythm GI: COMMON NORMALS: Soft to palpation and No hepatosplenomegaly present AUSCULTATION: Yes normoactive bowel sounds PALPATION: Yes Soft to palpation, No Tenderness to palpation present (GI), No Guarding due to palpation present (GI) and Yes No hepatosplenomegaly present Extremity: COMMON NORMALS: normal to inspection, capillary refill normal, no clubbing, cyanosis or edema, no calf tenderness and no pedal edema Neuro: SENSORIUM/ORIENTATION: Yes oriented to person, Yes oriented to place and Yes oriented to time Skin: COMMON NORMALS: no rashes or lesions noted GENERAL SKIN EXAM: no rashes or lesions noted Course Vital Signs: Vital signs: Vital Signs Temperature 97.5 F L 01/20/24 14:03 Pulse Rate 51 L 01/20/24 16:33 Respiratory Rate 18 01/20/24 15:40 Blood Pressure 133/84 01/20/24 16:33 Pulse Oximetry 97 01/20/24 16:33 Oxygen Delivery Me thod Room Air 01/20/24 14:03 MDM - Chest Pain Medical Decision Making Labs and imaging reviewed. Troponins are negative patient is feeling quite a bit better. Did do a CTA of her chest. She is anxious to go home we discussed different options: Discharge her home on isosorbide 30 mg daily. Will have her follow-up with cardiology next week. CTA was read as having a small subsegmental single pulmonary embolism. Will start her on Eliquis this was called in for called and discussed with the patient as well. Medical Records I reviewed the patient's medical records. Lab Data I reviewed the patient's lab results. 01/20/24 13:27 01/20/24 13:27 Radiology Impressions Chest X-Ray 01/20/24 13:07 Impression: No acute lung process is seen. Chest CTA 01/20/24 14:53 Impression: Findings demonstrate a right subsegmental pulmonary artery filling defect consistent with pulmonary emboli, age indeterminate. No central or segmental pulmonary emboli are noted. Findings suggest chronic pancreatitis with a hypodense lesion between the pancreas and the stomach. This is not well visualized. CT of the abdomen/pelvis with contrast is recommended. I called these findings and recommendations to Dr. London in the emergency room at 5:47 p.m. 01/20/2024. Laboratory Results WBC 20.77 10^3/uL (3.29-11.43) H 01/20/24 13:27 RBC 4.60 10^6/uL (3.85-5.65) 01/20/24 13:27 Hgb 13.70 g/dL (11.27-16.99) 01/20/24 13:27 Hct 41.0 % (36-47) 01/20/24 13:27 MCV 89.1 fl (85-98) 01/20/24 13:27 MCH 29.8 pg (27-33) 01/20/24 13:27 MCHC 33.4 g/dL (30-55) 01/20/24 13:27 RDW 14.4 % (12.1-15.1) 01/20/24 13:27 Plt Count 456 10^3/cmm (157-399) H 01/20/24 13:27 MPV 10.1 fL (7.4-10.4) 01/20/24 13:27 Neut % (Auto) 87.0 % 01/20/24 13:27 Lymph % (Auto) 10.7 % 01/20/24 13:27 [place] % (Auto) 1.7 % 01/20/24 13:27 Eos % (Auto) 0.0 % 01/20/24 13:27 Baso % (Auto) 0.1 % 01/20/24 13:27 Neut # (Auto) 18.05 10^3/uL (1.8-7.7) H 01/20/24 13:27 Lymph # (Auto) 2.2 10^3/uL (0.8-4.8) 01/20/24 13:27 [place] # (Auto) 0.4 10^3/uL (0.2-0.9) 01/20/24 13:27 Eos # (Auto) 0.0 10^3/uL (0.0-0.8) 01/20/24 13:27 Baso # (Auto) 0.0 10^3/uL (0.0-0.1) 01/20/24 13:27 Nucleated RBC % (auto) 0 % 01/20/24 13:27 Nucleated RBCs # 0.0 /100WBC 01/20/24 13:27 PT 12.80 SECONDS (12.1-14.9) 01/20/24 13:27 INR 0.93 (0.8-1.2) 01/20/24 13:27 Sodium 139 mmol/L (136-145) 01/20/24 13:27 Potassium 4.6 mmol/L (3.5-5.1) 01/20/24 13:27 Chloride 102 mmol/L (98-107) 01/20/24 13:27 Carbon Dioxide 21 mmol/L (22-29) L 01/20/24 13:27 Anion Gap 20.6 (5-19) H 01/20/24 13:27 BUN 21 mg/dL (8-23) 01/20/24 13:27 Creatinine 0.6 mg/dL (0.5-0.9) 01/20/24 13:27 GFR Calculation 101.6 mL/min (90-130) 01/20/24 13:27 Glucose 192 mg/dL (65-115) H 01/20/24 13:27 Calculated Osmolality 296 mOsm/kg (285-295) H 01/20/24 13:27 Lactic Acid 2.1 mmol/L (0.5-2.2) 01/20/24 13:27 Lactic Acid (Sepsis) 1.3 mmol/L (0.5-2.2) 01/20/24 16:21 Calcium 9.8 mg/dL (8.5-10.5) 01/20/24 13:27 Total Bilirubin 0.2 mg/dL (0.15-1.2) 01/20/24 13:27 AST 18 U/L (0-32) 01/20/24 13:27 ALT 23 U/L (0-33) 01/20/24 13:27 Alkaline Phosphatase 112 U/L (35-105) H 01/20/24 13:27 Troponin T Baseline 118 ng/L (0-10) H* 01/20/24 13:27 Troponin T 120 Minute 96.25 ng/L (0-10) H 01/20/24 15:16 Delta Troponin T -21.75 ABS# (0-10) L 01/20/24 15:16 Total Protein 7.1 g/dL (6.6-8.7) 01/20/24 13:27 Albumin 4.7 g/dL (3.5-5.2) 01/20/24 13:27 Globulin 2.4 g/dL (1.3-4.6) 01/20/24 13:27 Lipase 22 U/L (13-60) 01/20/24 13:27 All radiology interpretation(s) finalized by discharge Discharge Plan Discharge Patient Disposition: Home Clinical Impression: Atypical chest pain, CAD (coronary artery disease), Pulmonary emboli Condition: Stable Prescriptions: New isosorbide mononitrate 30 mg tablet extended release 24 hr 30 mg PO DAILY Qty: 30 0RF Eliquis DVT-PE Treat 30D Start 5 mg (74 tabs) tablets,dose pack See Rx Instructions .ROUTE .COMPLEX Qty: 74 0RF Rx Instructions: orally per package directions Discontinued furosemide [Lasix] 20 mg tablet 20 mg PO DAILY Qty: 30 0RF No Action atorvastatin 40 mg tablet 40 mg PO escitalopram oxalate 20 mg tablet 20 mg pantoprazole 40 mg tablet,delayed release (DR/EC) 40 mg PO sucralfate 1 gram tablet 1 g PO levofloxacin 750 mg tablet 750 mg PO DAILY 3 Days Qty: 3 0RF prednisone 20 mg tablet 40 mg PO DAILY 3 Days Qty: 6 0RF albuterol sulfate 90 mcg/actuation aerosol powdr breath activated 1 inh inhalation QID PRN (Reason: wheezing) Qty: 1 0RF clopidogrel 75 mg Tablet 75 mg PO DAILY Qty: 90 3RF aspirin 81 mg Tablet,Delayed Release (Dr/Ec) 81 mg PO DAILY Qty: 90 3RF metoprolol tartrate 50 mg Tablet 50 mg PO BID Qty: 120 3RF Discharge Orders: Discharge ED (Routine); Ordered 01/20/24 Ordered By: Anastacio London Referrals: Noe Johansen, [Primary Care Provider] - Discharge Diet: Usual diet Discharge Activity: Increase activity as tolerated Patient Instructions: Opioid Safety, Pain Management Activity Restrictions/Additional Instructions: Thank you for choosing [facility] for your healthcare needs today. It is very important that you follow up as instructed or that you return to the Emergency Department should you have concerns or if your condition changes or worsens in any way. You were seen in the emergency room for episode of chest discomfort. Suspect that some of your chest discomfort was related to hyperventilation. However given your recent cardiac event with stents there is some concern. Your cardiac enzymes trended down. We reviewed your EKGs with the eligibility consultant they feel that the EKGs changes seen today are in evolution of the process that happened a few days ago when you had the stents. We discussed possible admission for stress testing which you declined preferring to instead have medication changes and follow-up with outpatient cardiology. Recommend that you hold the Lasix start isosorbide mononitrate 30 mg once daily corrections caseworker will make arrangements for you to follow-up with cardiology. Return if you have further episodes of chest pain. Coding Level of Care Code ED Therapeutic Recreation Assistant for Santy Butcher
[2024-01-20] MEDS: LORazepam 2 mg/mL INJ 1 mL 1 MG IVP (13:22)
[2024-01-20] MEDS: morphine 4 mg/mL SDV 1 mL 2 MG IVP (13:22)
--- NOTE | 2024-01-20 13:22 | ECG_ITS ---
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 Measurements Intervals [place] Rate: 63 P: 56 [place]: 167 QRS: 44 QRSD: 94 T: 246 QT: 506 QTc: 518 Interpretive Statements SINUS RHYTHM POSSIBLE LEFT ATRIAL ENLARGEMENT [-0.1mV P-WAVE IN V1/V2] INCOMPLETE RIGHT BUNDLE BRANCH BLOCK [90+ ms QRS DURATION, TERMINAL R IN V1/V2, 40+ ms S IN I/aVL/V4/V5/V6] ST DEVIATION AND MARKED T-WAVE ABNORMALITY, CONSIDER ANTEROLATERAL ISCHEMIA [-0.5+ mV T-WAVE IN I/aVL/V3-V6] ST DEVIATION AND MODERATE T-WAVE ABNORMALITY, CONSIDER INFERIOR ISCHEMIA [-0.1+ mV T-WAVE IN II/aVF] Compared to ECG 01/20/2024 13:05:43 Sinus bradycardia no longer present T-wave abnormality still present Possible ischemia still present Electronically Signed On 01-20-2024 16:44:50 CDT by Clemente Guidry M.D. [id number]
[2024-01-20 13:33] LABS: Basophils % 0.1 %; Lymphocytes # 2.2 10^3/uL (0.8-4.8); Lymphocytes % 10.7 %; Mean Corpuscular HGB Conc 33.4 g/dL (30-55); Mean Corpuscular Hemoglobin 29.8 pg (27-33); Mean Corpuscular Volume 89.1 fl (85-98); Mean Platelet Volume 10.1 fL (7.4-10.4); Monocytes # 0.4 10^3/uL (0.2-0.9); Monocytes % 1.7 %; Neutrophils # 18.05 10^3/uL (1.8-7.7); Nucleated Red Blood Cells % 0 %; Platelet Count 456 10^3/cmm (157-399); Red Cell Distribution Width 14.4 % (12.1-15.1); White Blood Count 20.77 10^3/uL (3.29-11.43)
[2024-01-20 13:45] LABS: INR 0.93 (0.8-1.2)
[2024-01-20 13:53] LABS: Alanine Aminotransferase 23 U/L (0-33); Albumin Level 4.7 g/dL (3.5-5.2); Alkaline Phosphatase 112 U/L (35-105); Anion Gap 20.6 (5-19); Aspartate Amino Transferase 18 U/L (0-32); Blood Urea Nitrogen 21 mg/dL (8-23); Calcium 9.8 mg/dL (8.5-10.5); Carbon Dioxide 21 mmol/L (22-29); Chloride 102 mmol/L (98-107); Globulin 2.4 g/dL (1.3-4.6); Glomerular Filtration Rate 101.6 mL/min (90-130); Glucose 192 mg/dL (65-115); Lipase 22 U/L (13-60); Osmolality Calculated 296 mOsm/kg (285-295); Potassium 4.6 mmol/L (3.5-5.1); Sodium 139 mmol/L (136-145); Total Bilirubin 0.2 mg/dL (0.15-1.2); Total Protein 7.1 g/dL (6.6-8.7)
[2024-01-20 13:57] LABS: Troponin(5th) Baseline 118 ng/L (0-10)
[2024-01-20] MEDS: nitroglycerin 1 gm/inch oint Pkt 0.5 INCH TOPICAL (14:04)
[2024-01-20] MEDS: aspirin 81 mg Chew Tablet 324 MG PO (14:04)
--- NOTE | 2024-01-20 14:53 | CT_ITS ---
WS: [id number] Examination: CT angio chest PE protcl [id number] Reason for Exam: chest pain/dyspnea Date: 01/20/2024 Comparison: 06/20/2020 DLP: 381.[address] scans at [facility] use at least one of these dose optimization techniques: automated e xposure control; mA and/or kV adjustment per patient size (includes targeted exams where dose is matc hed to clinical indication); or iterative reconstruction. Findings: There is no pleural effusion. There is no dense consolidation. No dominant lung mass is identified. The heart is normal in size. There is no pericardial effusion. Extensive peripheral vascular disease and previous intervention is identified to the coronary arteries. The thoracic aorta does not appear enlarged. The pulmonary arteries are generally well opacified. There is a filling defect identified in a right mid pulmonary artery branch. This is seen on location 140.4 through 147.6. There is a poorly and incompletely visualized 4 cm hypodense area seen between the pancreas and the s tomach. The pancreatic pseudocysts or other mass could have this appearance. Calcifications are suspe cted within the pancreatic tail suggesting chronic pancreatitis. CT/CT angio chest PE protcl [id number] Impression: Findings demonstrate a right subsegmental pulmonary artery filling defect consi stent with pulmonary emboli, age indeterminate. No central or segmental pulmona ry emboli are noted. Findings suggest chronic pancreatitis with a hypodense lesion between the pancr eas and the stomach. This is not well visualized. CT of the abdomen/pelvis with contrast is recommended. I called these findings and recommendations to Dr. London in the emergency ro om at 5:47 p.m. 01/20/2024.
[2024-01-20 15:27] LABS: Lactic Sepsis W/Reflex 2.1 mmol/L (0.5-2.2)
--- NOTE | 2024-01-20 15:38 | ECG_ITS ---
[facility] Test Date: 2024-01-20 Pat Name: Humaira Birmingham Department: Room: Gender: Female Senior Director: : 1960 Requested By: Brendon Hines Order Number: [id number] Piotr MD: Clemente Guidry M.D. Measurements Intervals [place] Rate: 49 P: 50 [place]: 170 QRS: 28 QRSD: 98 T: 234 QT: 534 QTc: 485 Interpretive Statements SINUS BRADYCARDIA INCOMPLETE RIGHT BUNDLE BRANCH BLOCK [90+ ms QRS DURATION, TERMINAL R IN V1/V2, 40+ ms S IN I/aVL/V4/V5/V6] ST DEVIATION AND MODERATE T-WAVE ABNORMALITY, CONSIDER ANTEROLATERAL ISCHEMIA [-0.1+ mV T-WAVE IN V3-V6] ST DEVIATION AND MODERATE T-WAVE ABNORMALITY, CONSIDER INFERIOR ISCHEMIA [-0.1+ mV T-WAVE IN II/aVF] Compared to ECG 01/20/2024 13:22:23 Sinus rhythm no longer present T-wave abnormality still present Possible ischemia still present Electronically Signed On 01-20-2024 16:44:01 CDT by Clemente Guidry M.D. [id number]
[2024-01-20] MEDS: iohexol 350 mg/mL 500 mL Btl (per mL) IV (15:48)
[2024-01-20 15:50] LABS: Troponin 5 2HR 96.25 ng/L (0-10)
[2024-01-20 15:53] LABS: Troponin 5 2HR Delta -21.75 ABS# (0-10)
[2024-01-20 16:46] LABS: Reflex Lactate Order REFLEX LACTIC ORDERD
[2024-01-20 17:18] LABS: Lactic Acid level (Lactate) 1.3 mmol/L (0.5-2.2)
== END 2024-01-20 16:35 | disposition home or self-care (01) ==
PROVIDERS: Emergency Medicine; Emergency Provider Family Medicine; PCP Electrodiagnostic Medicine
DX: R07.89 Other chest pain (principal); I25.10 Atherosclerotic heart disease of native coronary artery without angina pectoris; I26.99 Other pulmonary embolism without acute cor pulmonale; Z79.02 Long term (current) use of antithrombotics/antiplatelets; Z79.82 Long term (current) use of aspirin; Z72.0 Tobacco use
CPT/HCPCS: 36415; 71045; 71275; 80053; 83605; 83690; 84484; 85025; 85610; 87040; 93005; 96374; 96375; 99285; J2060; J2270

== ENCOUNTER 2024-01-30 11:17 | Emergency (ER) | payer SELFPAY ==
[2024-01-30] VITALS (14 sets, daily range): BP systolic 114–172; BP diastolic 58–91; PULSE 58–104; RESP 13–20; TEMP 36.7; O2SAT 90–99; BMI 30.1
--- NOTE | 2024-01-30 11:22 | ECG_ITS ---
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 Measurements Intervals [place] Rate: 68 P: -5 [place]: 136 QRS: 35 QRSD: 102 T: 254 QT: 416 QTc: 443 Interpretive Statements SINUS RHYTHM INCOMPLETE RIGHT BUNDLE BRANCH BLOCK [90+ ms QRS DURATION, TERMINAL R IN V1/V2, 40+ ms S IN I/aVL/V4/V5/V6] MODERATE T-WAVE ABNORMALITY, CONSIDER ANTEROLATERAL ISCHEMIA [-0.1+ mV T-WAVE IN V3-V6] MODERATE T-WAVE ABNORMALITY, CONSIDER INFERIOR ISCHEMIA [-0.1+ mV T-WAVE IN II/aVF] Compared to ECG 01/20/2024 15:38:57 Sinus bradycardia no longer present T-wave abnormality still present Possible ischemia still present Electronically Signed On 01-30-2024 16:50:52 CDT by Dino Caballero M.D. [id number]
--- NOTE | 2024-01-30 11:38 | XR_ITS ---
WS: [id number] XR chest 1V portable [id number] REASON FOR EXAM: chest pain FINDINGS: Chest is unchanged compared to 01/20/2024. Mild tortuosity of the thoracic aorta. Heart is at the upper limits of normal in size. No acute pulmonary parenchymal or pleural abnormality is identified. Moderate degenerative spondylosis in the thoracic spine. XR/XR chest 1V portable [id number] IMPRESSION: Stable chest without acute abnormality.
[2024-01-30 12:37] LABS: Basophils # 0.1 10^3/uL (0.0-0.1); Basophils % 0.3 %; Eosinophils # 0.2 10^3/uL (0.0-0.8); Hematocrit 40.3 % (36-47); Lymphocytes # 3.1 10^3/uL (0.8-4.8); Lymphocytes % 16.5 %; Mean Corpuscular HGB Conc 32.8 g/dL (30-55); Mean Corpuscular Hemoglobin 29.7 pg (27-33); Mean Corpuscular Volume 90.6 fl (85-98); Mean Platelet Volume 9.8 fL (7.4-10.4); Monocytes % 5.3 %; Neutrophils # 14.22 10^3/uL (1.8-7.7); Neutrophils % 76.4 %; Nucleated Red Blood Cells % 0 %; Platelet Count 447 10^3/cmm (157-399); Red Blood Count 4.45 10^6/uL (3.85-5.65); Red Cell Distribution Width 14.2 % (12.1-15.1); White Blood Count 18.62 10^3/uL (3.29-11.43)
[2024-01-30 12:58] LABS: Troponin(5th) Baseline 23 ng/L (0-10)
[2024-01-30 13:02] LABS: Alanine Aminotransferase 16 U/L (0-33); Albumin Level 4.1 g/dL (3.5-5.2); Alkaline Phosphatase 121 U/L (35-105); Anion Gap 18.1 (5-19); Aspartate Amino Transferase 14 U/L (0-32); Blood Urea Nitrogen 13 mg/dL (8-23); Calcium 9.5 mg/dL (8.5-10.5); Carbon Dioxide 22 mmol/L (22-29); Chloride 104 mmol/L (98-107); Creatinine Clr Calc Pharmacy 96.8148; Globulin 2.4 g/dL (1.3-4.6); Glomerular Filtration Rate 101.6 mL/min (90-130); Glucose 126 mg/dL (65-115); Osmolality Calculated 292 mOsm/kg (285-295); Potassium 4.1 mmol/L (3.5-5.1); Sodium 140 mmol/L (136-145); Total Bilirubin 0.3 mg/dL (0.15-1.2); Total Protein 6.5 g/dL (6.6-8.7)
--- NOTE | 2024-01-30 13:04 | W.ED.CHESTPA ---
HPI - Chest Pain General: Chief Complaint: Chest Pain Stated Complaint: sob, chest pain, nausea Time Seen by Provider: 01/30/24 12:58 History of Present Illness: Patient presents to the ER complaining of chest pain radiates from her bellybutton all the way up to the middle of her sternum. It then goes all the way around to her back. Patient states she had 4 stents placed about [address] Guidry here. Patient also states pain radiates to her arms. She does states it is is a little different than the pain when she had her stents placed. Patient does have a history of acid reflux and think she has an ulcer. Patient's been on her Eliquis, aspirin, Plavix, Protonix, Carafate, patient denies any nausea vomiting shortness of breath. Related Data Home Medications Medication Instructions Recorded Confirmed atorvastatin 40 mg tablet 40 mg PO QPM 01/18/24 01/30/24 escitalopram oxalate 20 mg tablet 20 mg PO DAILY 01/18/24 01/30/24 pantoprazole 40 mg tablet,delayed 40 mg PO BID 01/18/24 01/30/24 release sucralfate 1 gram tablet 1 g PO QID PRN Stomach Upset 01/18/24 01/30/24 estradiol 2 mg tablet 2 mg PO DAILY 01/30/24 01/30/24 Previous Rx's Medication Instructions Recorded albuterol sulfate 90 mcg/actuation 1 inh inhalation QID PRN wheezing 01/19/24 breath activated powder inhaler #1 ea aspirin 81 mg tablet,delayed 81 mg PO DAILY #90 tabs 01/19/24 release clopidogrel 75 mg tablet 75 mg PO DAILY #90 tabs 01/19/24 metoprolol tartrate 50 mg tablet 50 mg PO BID #120 tabs 01/19/24 apixaban 5 mg (74 tabs) tablets in See Rx Instructions PO .COMPLEX 01/20/24 a dose pack (Eliquis DVT-PE Treat #74 ea 30D Start) isosorbide mononitrate 30 mg 15 mg (1/2 x 30 mg) PO DAILY #30 01/27/24 tablet,extended release 24 hr tabs Allergies Allergy/AdvReac Type Severity Reaction Status Date / Time No Known Allergies Allergy Verified 01/30/24 11:22 Review of Systems General: Reports: 10 or more systems reviewed and unremarkable except in HPI and below [facility] ED PFSH: Medical History Community acquired pneumonia CAD (coronary artery disease) Social History Smoking and tobacco/nicotine status: current every day tobacco/nicotine user Alcohol intake: current Marital status: Physical Exam Const: COMMON NORMALS: no acute distress, average body habitus, patient oriented x3, no limitations, healthy appearing, alert and well nourished HENMT: COMMON NORMALS: normocephalic, atraumatic, hearing grossly normal bilaterally, external ears normal, Normal external nose present and moist oral mucous membranes HEAD & SCALP: normocephalic and atraumatic NOSE: Normal external nose present EXTERNAL EAR: Yes external ears normal Eye: COMMON NORMALS: Equal, round and reactive pupils present, EOMs intact bilaterally, conjunctivae normal and no scleral icterus CONJUNCTIVA: Yes conjunctivae normal PUPIL: Yes Equal, round and reactive pupils present Neck/C-Spine: COMMON NORMALS: no JVD Chest: COMMONS NORMALS: normal inspection of the chest and normal palpation of entire chest wall Resp: COMMON NORMALS: normal respiratory effort, No retractions, No use of accessory muscles and clear to auscultation bilaterally AUSCULTATION: clear to auscultation bilaterally Cardio: COMMON NORMALS: no JVD, regular rate, regular rhythm, S1 normal heart sound present, S2 normal heart sound present, No gallops present (Cardio), No clicks present (Cardio), No murmurs present (Cardio) and No rub (Cardio) RATE: regular rate RHYTHM: regular rhythm HEART SOUNDS: S1 normal heart sound present and S2 normal heart sound present GI: COMMON NORMALS: Normal to inspection, nondistended, normoactive bowel sounds present, Soft to palpation, No hepatosplenomegaly present and no masses; negative for non-tender (Tender to palpate epigastric area) PALPATION: Yes Soft to palpation and Yes No hepatosplenomegaly present Neuro: COMMON NORMALS: patient oriented x3 SENSORIUM/ORIENTATION: Yes alert Course Vital Signs: Vital signs: Vital Signs Temperature 98.0 F 01/30/24 11:23 Pulse Rate 62 01/31/24 10:45 Respiratory Rate 19 H 01/31/24 10:45 Blood Pressure 111/59 01/31/24 10:30 Pulse Oximetry 95 01/31/24 10:45 Oxygen Delivery Me thod Nasal Cannula 01/31/24 05:53 Oxygen Flow Rate 2 01/31/24 05:53 MDM - Chest Pain Medical Decision Making Discussed this case with Dr. Sanz who thinks due to the pancreatic ductal stone and dilation she may need an ERCP he prefer she be transferred out with a have GI and ERCP capabilities. Talked with [facility] transfer center they are going to run it by their GI doctor to see if she needs an ERCP as they do not have ERCP capabilities this weekend. [facility] transfer line called back and said their GI doctor said she will definitely needed pancreatic drain and they do not do them at this time. [facility] transfer line called they said they do not have any [facility] beds at this time we could try calling back later. I talked to the patient and told them about this they said they are okay sitting here in ER [facility] and readdressing [facility] in the morning and if they do not have any beds then going somewhere else but they would prefer [facility] if possible. Patient's family member came out and said that she is willing to try other hospitals. But just does not want go to [place]. [facility] has no beds, [facility] was called they have no beds. [facility] called and spoke with the GI doctor who said this is more than a basic ERCP case will need at least multidisciplinary and possible surgical resection. He would suggest a hepatobiliary center such as [facility] or [facility]. [facility] was called spoke with Dr. Michelle ramos and also the GI doctor and they both agreed that patient needs to be transferred to a tertiary center with hepatobiliary as this probably will need surgery and ongoing close chronic care. Discussed this case with the bed coordinator at the [facility] and she will be paging out GI at [facility]. [facility] called us back Dr. Vidhi ramos will be accepting. Differential Diagnosis Unlikely acute massive pulmonary embolism, acute respiratory failure, acute myocardial infarction, cardiac arrest or sudden cardiac Medical Records I reviewed the patient's medical records. Lab Data I reviewed the patient's lab results. 01/30/24 12:01 01/30/24 12:01 Radiology Impressions Chest X-Ray 01/30/24 11:38 IMPRESSION: Stable chest without acute abnormality. Abdomen/Pelvis CT 01/30/24 13:36 IMPRESSION: Findings most compatible with acute on chronic pancreatitis with a likely acute necrotic collection centered within the pancreatic neck. There is also a 0.7 cm calculus within the pancreatic duct with upstream ductal dilatation which may be contributing to pancreatitis. Recommend imaging follow-up after clinical treatment to evaluate for resolution. Laboratory Results WBC 18.62 10^3/uL (3.29-11.43) H 01/30/24 12:01 RBC 4.45 10^6/uL (3.85-5.65) 01/30/24 12:01 Hgb 13.20 g/dL (11.27-16.99) 01/30/24 12:01 Hct 40.3 % (36-47) 01/30/24 12:01 MCV 90.6 fl (85-98) 01/30/24 12:01 MCH 29.7 pg (27-33) 01/30/24 12:01 MCHC 32.8 g/dL (30-55) 01/30/24 12:01 RDW 14.2 % (12.1-15.1) 01/30/24 12:01 Plt Count 447 10^3/cmm (157-399) H 01/30/24 12:01 MPV 9.8 fL (7.4-10.4) 01/30/24 12:01 Neut % (Auto) 76.4 % 01/30/24 12:01 Lymph % (Auto) 16.5 % 01/30/24 12:01 [place] % (Auto) 5.3 % 01/30/24 12:01 Eos % (Auto) 1.0 % 01/30/24 12:01 Baso % (Auto) 0.3 % 01/30/24 12:01 Neut # (Auto) 14.22 10^3/uL (1.8-7.7) H 01/30/24 12:01 Lymph # (Auto) 3.1 10^3/uL (0.8-4.8) 01/30/24 12:01 [place] # (Auto) 1.0 10^3/uL (0.2-0.9) H 01/30/24 12:01 Eos # (Auto) 0.2 10^3/uL (0.0-0.8) 01/30/24 12:01 Baso # (Auto) 0.1 10^3/uL (0.0-0.1) 01/30/24 12:01 Nucleated RBC % (auto) 0 % 01/30/24 12:01 Nucleated RBCs # 0.0 /100WBC 01/30/24 12:01 PT 13.50 SECONDS (12.1-14.9) 01/30/24 12:01 INR 1.00 (0.8-1.2) 01/30/24 12:01 Sodium 140 mmol/L (136-145) 01/30/24 12:01 Potassium 4.1 mmol/L (3.5-5.1) 01/30/24 12:01 Chloride 104 mmol/L (98-107) 01/30/24 12:01 Carbon Dioxide 22 mmol/L (22-29) 01/30/24 12:01 Anion Gap 18.1 (5-19) 01/30/24 12:01 BUN 13 mg/dL (8-23) 01/30/24 12:01 Creatinine 0.6 mg/dL (0.5-0.9) 01/30/24 12:01 GFR Calculation 101.6 mL/min (90-130) 01/30/24 12:01 Glucose 126 mg/dL (65-115) H 01/30/24 12:01 Calculated Osmolality 292 mOsm/kg (285-295) 01/30/24 12:01 Lactic Acid 0.7 mmol/L (0.5-2.2) 01/30/24 18:18 Calcium 9.5 mg/dL (8.5-10.5) 01/30/24 12:01 Total Bilirubin 0.3 mg/dL (0.15-1.2) 01/30/24 12:01 AST 14 U/L (0-32) 01/30/24 12:01 ALT 16 U/L (0-33) 01/30/24 12:01 Alkaline Phosphatase 121 U/L (35-105) H 01/30/24 12:01 Troponin T Baseline 23 ng/L (0-10) H 01/30/24 12:01 Troponin T 120 Minute 22.46 ng/L (0-10) H 01/30/24 14:08 Delta Troponin T -0.54 ABS# (0-10) L 01/30/24 14:08 Total Protein 6.5 g/dL (6.6-8.7) L 01/30/24 12:01 Albumin 4.1 g/dL (3.5-5.2) 01/30/24 12:01 Globulin 2.4 g/dL (1.3-4.6) 01/30/24 12:01 Lipase 70 U/L (13-60) H 01/30/24 12:01 All radiology interpretation(s) finalized by discharge EKG Data EKG 1: I personally reviewed and interpreted this EKG as follows: EKG interpretation date: 01/30/24 Interpretation: Ventricular rate 68 bpm, UT interval 136, QRS 102, QTc of 443, sinus rhythm EKG 2: I personally reviewed and interpreted this EKG as follows: EKG interpretation date: 01/30/24 EKG interpretation time: 13:27 Interpretation: Ventricular rate 69, UT interval 167, QRS 102, QTc of 419, sinus rhythm Discharge Plan Discharge Patient Disposition: Xfer Short-Term Hosp Clinical Impression: Acute on chronic pancreatitis, Pancreas cyst, Pancreatic duct stones Leukocytosis Qualifiers: Leukocytosis type: unspecified Qualified Code(s): D72.829 - Elevated white blood cell count, unspecified Condition: Stable Referrals: Noe Johansen DO [Primary Care Provider] - Coding Level of Care Code ED Kiss Setter Hand for Chg Gu[facility]
[2024-01-30] MEDS: lidocaine 2% viscous 15 ML, aluminum-mag hydrox-simethicon 30 ML, sucralfate oral liq 1 GM PO (13:16)
[2024-01-30 13:33] LABS: Lipase 70 U/L (13-60)
--- NOTE | 2024-01-30 13:36 | CTR_ITS ---
PROCEDURE INFORMATION: Exam: CT Abdomen And Pelvis With Contrast Exam date and time: 01/30/2024 2:37 PM Age: 63 years old Clinical indication: Abdominal pain; Epigastric; Additional info: Epigastric pain, elevated lipase, wbc, TECHNIQUE: Imaging protocol: Computed tomography of the abdomen and pelvis with contrast. Radiation optimization: All CT scans at this facility use at least one of these dose optimization techniques: automated exposure control; mA and/or kV adjustment per patient size (includes targeted exams where dose is matched to clinical indication); or iterative reconstruction. Contrast material: OMNI 350; Contrast volume: 100 ml; Contrast route: INTRAVENOUS (IV); COMPARISON: CT abdomen pelvis wo con [id number] 05/19/2018 9:08 PM RADIATION DOSE METRICS: Total DLP (mGy-cm): 730.97 FINDINGS: Liver: Normal. No mass. Gallbladder and biliary ducts: Normal. No calcified stones. No ductal dilation. Pancreas: The pancreas appears atrophic. There is a 0.7 cm calculus within the main pancreatic duct within the pancreatic head with several additional smaller calculi within the duct at this level resulting in diffuse upstream pancreatic ductal dilatation which measures up to 0.7 cm in caliber. Multiple additional small calcifications are seen scattered throughout the pancreatic parenchyma. Centered within the pancreatic neck, there is a 4.1 x 3.8 cm thick-walled cystic collection. Mild peripancreatic fat stranding. Spleen: Normal. No splenomegaly. Adrenal glands: Normal. No mass. Kidneys and ureters: Normal. No hydronephrosis. Stomach and bowel: Unremarkable. No obstruction. No mucosal thickening. Appendix: No evidence of appendicitis. Intraperitoneal space: Unremarkable. No free air. No significant fluid collection. Vasculature: Moderate diffuse atherosclerotic calcifications of the abdominal aorta. No aortic aneurysm. Lymph nodes: Unremarkable. No enlarged lymph nodes. Urinary bladder: Unremarkable as visualized. Reproductive: Status post hysterectomy. Bones/joints: Unremarkable. No acute fracture. Soft tissues: Unremarkable. CT/CT abdomen pelvis w con* [id number] IMPRESSION: Findings most compatible with acute on chronic pancreatitis with a likely acute necrotic collection centered within the pancreatic neck. There is also a 0.7 cm calculus within the pancreatic duct with upstream ductal dilatation which may be contributing to pancreatitis. Recommend imaging follow-up after clinical treatment to evaluate for resolution.
--- NOTE | 2024-01-30 13:38 | ECG_ITS ---
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 Measurements Intervals [place] Rate: 69 P: 58 HI: 167 QRS: 55 QRSD: 102 T: 269 QT: 419 QTc: 451 Interpretive Statements SINUS RHYTHM POSSIBLE LEFT ATRIAL ENLARGEMENT [-0.1mV P-WAVE IN V1/V2] INCOMPLETE RIGHT BUNDLE BRANCH BLOCK [90+ ms QRS DURATION, TERMINAL R IN V1/V2, 40+ ms S IN I/aVL/V4/V5/V6] ST DEVIATION AND MODERATE T-WAVE ABNORMALITY, CONSIDER ANTEROLATERAL ISCHEMIA [-0.1+ mV T-WAVE IN V3-V6] ST DEVIATION AND MODERATE T-WAVE ABNORMALITY, CONSIDER INFERIOR ISCHEMIA [-0.1+ mV T-WAVE IN II/aVF] Compared to ECG 01/30/2024 11:26:09 No significant changes Electronically Signed On 01-30-2024 16:55:13 CDT by Dino Caballero M.D. [id number]
[2024-01-30 14:36] LABS: Troponin 5 2HR 22.46 ng/L (0-10)
[2024-01-30 14:40] LABS: Troponin 5 2HR Delta -0.54 ABS# (0-10)
[2024-01-30] MEDS: iohexol 350 mg/mL 500 mL Btl (per mL) IV (14:41)
[2024-01-30] MEDS: ondansetron 2 mg/ML SDV 2 mL 4 MG IVP ×2 (16:11→21:47)
[2024-01-30] MEDS: HYDROmorphone 1 mg/mL INJ 1 mL 0.5 MG IVP ×2 (16:13→18:33)
--- NOTE | 2024-01-30 17:38 | ECG_ITS ---
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 Measurements Intervals [place] Rate: 66 P: 56 ME: 169 QRS: 45 QRSD: 100 T: -90 QT: 440 QTc: 461 Interpretive Statements SINUS RHYTHM POSSIBLE LEFT ATRIAL ENLARGEMENT [-0.1mV P-WAVE IN V1/V2] INCOMPLETE RIGHT BUNDLE BRANCH BLOCK [90+ ms QRS DURATION, TERMINAL R IN V1/V2, 40+ ms S IN I/aVL/V4/V5/V6] ST DEVIATION AND MODERATE T-WAVE ABNORMALITY, CONSIDER ANTEROLATERAL ISCHEMIA [-0.1+ mV T-WAVE IN V3-V6] ST DEVIATION AND MODERATE T-WAVE ABNORMALITY, CONSIDER INFERIOR ISCHEMIA [-0.1+ mV T-WAVE IN II/aVF] Compared to ECG 01/30/2024 13:27:16 No significant changes Electronically Signed On 02-01-2024 9:32:21 CDT by Clemente Guidry M.D. [id number]
[2024-01-30] MEDS: piperacillin-tazobactam 3.375 GM in sodium chloride 0.9% (plus) 50 ML IV ×2 (18:33→21:49)
--- NOTE | 2024-01-30 18:53 | PC.NURSE ---
Janette YBARRA and this preceptor assumed care of patient from Ann YBARRA at shift change.
[2024-01-30 18:58] LABS: Lactic Sepsis W/Reflex 0.7 mmol/L (0.5-2.2)
[2024-01-30] MEDS: morphine 4 mg/mL SDV 1 mL IVP ×2 (19:49→20:52)
[2024-01-30] MEDS: nicotine 21 mg Patch 1 PATCH TRANSDERMA (20:53)
[2024-01-30] MEDS: HYDROmorphone 1 mg/mL INJ 1 mL IVP (21:48)
[2024-01-31] VITALS (77 sets, daily range): BP systolic 90–148; BP diastolic 47–98; PULSE 57–74; RESP 12–93; O2SAT 81–98
[2024-01-31] MEDS: ondansetron 2 mg/ML SDV 2 mL 4 MG IVP ×3 (00:06→19:31)
[2024-01-31] MEDS: HYDROmorphone 1 mg/mL INJ 1 mL IVP ×10 (00:07→23:15)
--- NOTE | 2024-01-31 03:19 | PC.NURSE ---
Patient was transferred to hospital bed at this time. Patient also ambulated to restroom, and had no new complaints at this time.
[2024-01-31] MEDS: piperacillin-tazobactam 3.375 GM in sodium chloride 0.9% (plus) 50 ML IV ×3 (05:27→21:39)
--- NOTE | 2024-01-31 05:36 | PC.NURSE ---
Pt declined Dilaudid and zofran a this time. Denies nausea and stated pain is tolerable and she still feels like she has pain meds in her.
--- NOTE | 2024-01-31 07:02 | PC.NURSE ---
Rounded on patient and introduced myself as her nurse for the day shift. Asked the patient about her pain since she had not had Dilaudid in several hours. Patient stated that her pain was bearable at this time and she did not want the pain med at this time. Patient had been sleeping but she had woke up as I walked into the room.
--- NOTE | 2024-01-31 08:24 | PC.NURSE ---
Gave patient breakfast, patient is sitting up in bed at this time.
--- NOTE | 2024-01-31 10:55 | PC.NURSE ---
Called [facility] to get an update per family request, I spoke with the intake nurse and they are still waiting on discharges and they said they should have a room assignment later this afternoon. I then updated the intake nurse with current vitals and what medications have been given to the patient throughout the night. I then went into the room and gave the patient and her family member an update on the room situation. Patient's family wanted to know if they could just drive her to [place] so she could be more comfortable, I told them I would ask the ER physician. I spoke with Dr. London and he said absolutely not due to pain management and she needed her vitals watched. I went and conveyed that information to the patient and their family and the patient stated then I want to be knocked out for the entire ride to [place] .
[2024-01-31] MEDS: nicotine 21 mg Patch 1 PATCH TRANSDERMA (11:14)
--- NOTE | 2024-01-31 19:49 | PC.NURSE ---
UPDATE GIVEN TO [facility], NO ETA ON BED, PT AND FAMILY UPDATED.
[2024-01-31 21:53] LABS: Basophils # 0.1 10^3/uL (0.0-0.1); Basophils % 0.3 %; Eosinophils # 0.3 10^3/uL (0.0-0.8); Eosinophils % 1.6 %; Lymphocytes # 3.8 10^3/uL (0.8-4.8); Lymphocytes % 21.4 %; Mean Corpuscular HGB Conc 33.1 g/dL (30-55); Mean Corpuscular Hemoglobin 30.2 pg (27-33); Mean Corpuscular Volume 91.1 fl (85-98); Mean Platelet Volume 9.9 fL (7.4-10.4); Monocytes % 5.6 %; Neutrophils # 12.55 10^3/uL (1.8-7.7); Neutrophils % 70.7 %; Nucleated Red Blood Cells % 0 %; Platelet Count 392 10^3/cmm (157-399); Red Blood Count 3.84 10^6/uL (3.85-5.65); Red Cell Distribution Width 14.1 % (12.1-15.1); White Blood Count 17.75 10^3/uL (3.29-11.43)
--- NOTE | 2024-01-31 22:00 | P.CONIM_ITS ---
Providers/Reason For Consult 2 Consulting Physician/Specialty*: Pancreatitis, pancreatic necrosis, pancreatic stone Emergency room provider Reason for Consult*: Pancreatitis, pancreatic necrosis, pancreatic stone Primary Care Provider: Noe Johansen DO History of Present Illness History of Present Illness Humaira Birmingham is a 63 year old female with a past medical history of CAD status post 4 cardiac stents 01/17/2024, subsequently was diagnosed with a PE, on Eliquis, systolic CHF, EF of 35 to 40%, history of smoking, history of pancreatitis, who presents [facility] for epigastric discomfort, back pain, nausea, vomiting. CT scan of the emergency room CT/CT abdomen pelvis w con* [id number] IMPRESSION: Findings most compatible with acute on chronic pancreatitis with a likely acute necrotic collection centered within the pancreatic neck. There is also a 0.7 cm calculus within the pancreatic duct with upstream ductal dilatation which may be contributing to pancreatitis. Recommend imaging follow-up after clinical treatment to evaluate for resolution. -Patient is awaiting a bed at [facility] for GI, hepatobiliary, surgery, possible ERCP, possible biliary stent, possible surgical resection Currently patient is complaining of epigastric discomfort, back pain, feeling nauseous she has received Zofran, Dilaudid, denies any chest pain, no palpitations, no shortness of breath, she is taking her aspirin and Plavix this morning, does report a history of alcohol consumption but has not consumed alcohol in a few weeks, -Hospitalist team was called for medical management as patient is awaiting a bed at [facility] Review of Systems 2 Card: Denies: chest pain Resp: Denies: dyspnea GI: Reports: abdominal pain and nausea; Denies: vomiting Medications/Allergies Home Medications Medication Instructions Recorded Confirmed Last Taken Type atorvastatin 40 mg tablet 40 mg PO QPM 01/18/24 01/30/24 01/29/24 History escitalopram oxalate 20 mg tablet 20 mg PO DAILY 01/18/24 01/30/24 01/29/24 History pantoprazole 40 mg tablet,delayed 40 mg PO BID 01/18/24 01/30/24 01/29/24 History release sucralfate 1 gram tablet 1 g PO QID PRN Stomach Upset 01/18/24 01/30/24 Unknown History albuterol sulfate 90 mcg/actuation 1 inh inhalation QID PRN wheezing 01/19/24 01/30/24 Unknown Rx breath activated powder inhaler #1 ea aspirin 81 mg tablet,delayed 81 mg PO DAILY #90 tabs 01/19/24 01/30/24 01/29/24 Rx release clopidogrel 75 mg tablet 75 mg PO DAILY #90 tabs 01/19/24 01/30/24 01/29/24 Rx metoprolol tartrate 50 mg tablet 50 mg PO BID #120 tabs 01/19/24 01/30/24 01/29/24 Rx apixaban 5 mg (74 tabs) tablets in See Rx Instructions PO .COMPLEX 01/20/24 01/30/24 01/29/24 Rx a dose pack (EliquAplica DVT-PE Treat #74 ea 30D Start) isosorbide mononitrate 30 mg 15 mg (1/2 x 30 mg) PO DAILY #30 01/27/24 01/30/24 01/29/24 Rx tablet,extended release 24 hr tabs estradiol 2 mg tablet 2 mg PO DAILY 01/30/24 01/30/24 01/29/24 History Allergies Allergy/AdvReac Type Severity Reaction Status Date / Time No Known Allergies Allergy Verified 01/30/24 11:22 Current Medications Generic Name Dose Route Start Last Admin Trade Name Chaya PRN Reason Stop Dose Admin Piperacillin Sod/Tazobactam 50 mls @ 12.5 mls/hr 01/30/24 21:00 01/31/24 21:39 Sod 3.375 gm/ Sodium Chloride IV 12.5 mls/hr Q8H FAMILIA Administration Protocol Ondansetron HCl 4 mg 01/30/24 21:00 01/31/24 19:31 Ondansetron 2 Mg/Ml Sdv 2 Ml IVP 4 mg Q4H FAMILIA Administration PFSH Acute 2 PFSH: Medical History (Updated 01/31/24 @ 22:05 by Miguel Ángel Thompson MD) History of pulmonary embolism Community acquired pneumonia CAD (coronary artery disease) Social History Smoking and tobacco/nicotine status: current every day tobacco/nicotine user Alcohol intake: current Marital status: Vitals/I&O/Wt Last Vital Signs Temp 98.0 F 01/30/24 11:23 Pulse 64 01/31/24 18:45 Resp 15 01/31/24 21:39 BP 136/60 01/31/24 18:45 Pulse Ox 92 01/31/24 18:45 O2 Del Method Nasal Cannula 01/31/24 05:53 O2 Flow Rate 2 01/31/24 05:53 01/31/24 01/31/24 01/31/24 06:59 14:59 22:59 Intake Total 50 / 50 50 / 50 50 / 100 Balance 50 / 50 50 / 50 50 / 100 Weight last 48 hrs Weight 77.111 kg Physical Exam 2 Const: COMMON NORMALS: no acute distress and patient oriented x3 HENMT: COMMON NORMALS: normocephalic HEAD & SCALP: normocephalic Neck/C-Spine: COMMON NORMALS: no JVD Resp: COMMON NORMALS: normal respiratory effort, No retractions, No use of accessory muscles and clear to auscultation bilaterally AUSCULTATION: clear to auscultation bilaterally Cardio: COMMON NORMALS: no JVD, regular rate, regular rhythm, S1 normal heart sound present and S2 normal heart sound present RATE: regular rate RHYTHM: regular rhythm HEART SOUNDS: S1 normal heart sound present and S2 normal heart sound present GI: COMMON NORMALS: Normal to inspection, nondistended, normoactive bowel sounds present OTHER: Epigastric tenderness Extremity: COMMON NORMALS: no calf tenderness and no pedal edema Neuro: COMMON NORMALS: patient oriented x3, CN's II-XII intact bilaterally and moves all extremities Psych: COMMON NORMALS: mental status grossly normal Data 01/31/24 21:36 01/30/24 12:01 A&P Assessment and plan (1) History of pulmonary embolism: (2) Systolic congestive heart failure: (3) Hyperlipidemia: (4) Acute on chronic pancreatitis: (5) Pancreatic duct stones: (6) Pancreas cyst: (7) History of CAD (coronary artery disease): Plan Abdominal pain, -Secondary to acute on chronic pancreatitis -With acute necrotic fluid collection centered around pancreatic neck -calculi within the pancreatic duct with upstream ductal dilatation CT/CT abdomen pelvis w con* [id number] IMPRESSION: Findings most compatible with acute on chronic pancreatitis with a likely acute necrotic collection centered within the pancreatic neck. There is also a 0.7 cm calculus within the pancreatic duct with upstream ductal dilatation which may be contributing to pancreatitis. Recommend imaging follow-up after clinical treatment to evaluate for resolution. Plan -IV fluids -N.p.o. midnight -Zosyn for antibiotic coverage -Dilaudid for pain -Protonix for GI prophylaxis -Zofran and Reglan for nausea -Abdominal exams -Monitor electrolytes, LFTs, lipase, bili -Full code -Heparin drip for DVT prophylaxis Recent history of CAD, recent history of stenting 01/17/2024 Conclusions 1. Severe proximal to distal RCA stenosis status post successful revascularization with 2 stents.. 2. Mid Right Coronary Artery to Distal Right Coronary Artery was treated with a Drug Eluting Stent, Drug Eluting Stent, Drug Eluting Stent, and Balloon. Plan -Continue aspirin, Plavix -Telemetry monitoring -No chest pain complaints Recent history of pulmonary embolism 01/20/2024 CT/CT angio chest PE protcl [id number] Impression: Findings demonstrate a right subsegmental pulmonary artery filling defect consistent with pulmonary emboli, age indeterminate. No central or segmental pulmonary emboli are noted. ? Plan ? Hold Eliquis -Switch to heparin drip History of CHF CONCLUSIONS Left ventricle is mildly dilated. LV systolic function is moderately reduced with EF of 35 to 40%. Mild mitral regurgitation Mild mitral regurgitation Mild pulmonic regurgitation No comparison studies are available. -No complaints of shortness of breath -Monitor closely Consult Attestations 2 Medical Necessity Statement: Patient requires transfer to tertiary level center for acute necrotic collection about pancreatic head, 0.7 mm calculus within the pancreatic duct with ductal dilatation requiring transfer to tertiary level center for GI, hepatobiliary, ERCP, surgical intervention, GI Diagnoses History of pulmonary embolism Z86.711 Systolic congestive heart failure I50.20 Hyperlipidemia E78.5 Acute on chronic pancreatitis K85.90; K86.1 Pancreatic duct stones K86.89 Pancreas cyst K86.2 History of CAD (coronary artery disease) Z86.79
[2024-01-31 22:04] LABS: INR 1.27 (0.8-1.2)
[2024-01-31 22:08] LABS: Estmated Average Glucose 134; Hemoglobin A1C 6.3 % (4.0-6.0); Lactic Sepsis W/Reflex 1.5 mmol/L (0.5-2.2)
[2024-01-31] MEDS: heparin 5,000 unit/mL INJ 1 mL IVP (22:14)
[2024-01-31] MEDS: heparin drip 25,000 UNIT/500 ML PREMIX 22 UNIT IV (22:15)
[2024-01-31 22:21] LABS: NT Pro B Type Natriuretic Pept 528 pg/mL (0-125); Procalcitonin 0.05 ng/mL (0-0.5); Thyroid Stimulating Hormone 2.75 uIU/mL (0.27-4.20)
[2024-01-31 22:33] LABS: Alanine Aminotransferase 11 U/L (0-33); Albumin Level 3.7 g/dL (3.5-5.2); Alkaline Phosphatase 105 U/L (35-105); Anion Gap 15.7 (5-19); Aspartate Amino Transferase 10 U/L (0-32); Blood Urea Nitrogen 17 mg/dL (8-23); Calcium 8.5 mg/dL (8.5-10.5); Carbon Dioxide 23 mmol/L (22-29); Chloride 101 mmol/L (98-107); Chol HDL Ratio 4.74 mg/dL (0.0-4.40); Cholesterol 185 mg/dL (0-200); Creatinine Clr Calc Pharmacy 72.6111; Glomerular Filtration Rate 72.9 mL/min (90-130); Glucose 154 mg/dL (65-115); HDL Cholesterol 39 mg/dL (60-100); LDL Cholesterol Calculated 120 mg/dL (50-129); LDL HDL Ratio 3.08 RATIO (0.00-3.22); Lipase 26 U/L (13-60); Magnesium 1.6 mg/dL (1.7-2.3); Osmolality Calculated 287 mOsm/kg (285-295); Potassium 3.7 mmol/L (3.5-5.1); Sodium 136 mmol/L (136-145); Total Bilirubin 0.4 mg/dL (0.15-1.2); Total Protein 5.7 g/dL (6.6-8.7); Triglycerides 130 mg/dL (0-150)
[2024-01-31] MEDS: sodium chloride 0.9% 1,000 ML 50 ML IV (23:15)
[2024-01-31] MEDS: pantoprazole 40 mg SDV IVP (23:24)
[2024-02-01] VITALS (16 sets, daily range): BP systolic 90–122; BP diastolic 42–67; PULSE 63–78; RESP 16–21; O2SAT 92–98
[2024-02-01] MEDS: HYDROmorphone 1 mg/mL INJ 1 mL IVP ×8 (00:12→20:10)
[2024-02-01 01:05] LABS: Add Urine Culture? Yes; Add Urine Microscopic? YES; Bacteria Urine TRACE /hpf; Bilirubin Urine Neg (Negative); Blood Urine 3+ (Negative); Glucose Urine UA Norm (Normal); Ketones Urine Negative (Negative); Leukocyte Esterase Urine Negative (Negative); Mucus Urine TRACE /hpf; Nitrate Urine Negative (Negative); Protein Urine Trace (Negative); RBC Urine 0-4 /hpf (0-2); Urine Appearance Clear (CLEAR); Urine Color Yellow (Yellow); Urobilinogen Urine Norm (Negative); pH Urine 6 (5-7)
[2024-02-01 03:19] LABS: Gamma Glutamyl Transferase 24 U/L (5-36)
[2024-02-01 03:40] LABS: Basophils # 0.1 10^3/uL (0.0-0.1); Basophils % 0.4 %; Eosinophils # 0.3 10^3/uL (0.0-0.8); Eosinophils % 1.6 %; Lymphocytes # 4.1 10^3/uL (0.8-4.8); Lymphocytes % 25.1 %; Mean Corpuscular HGB Conc 33.2 g/dL (30-55); Mean Corpuscular Hemoglobin 30.2 pg (27-33); Mean Corpuscular Volume 90.9 fl (85-98); Mean Platelet Volume 9.8 fL (7.4-10.4); Monocytes % 6.3 %; Neutrophils # 10.86 10^3/uL (1.8-7.7); Neutrophils % 66.2 %; Nucleated Red Blood Cells % 0 %; Platelet Count 380 10^3/cmm (157-399); Red Blood Count 3.74 10^6/uL (3.85-5.65); Red Cell Distribution Width 14.1 % (12.1-15.1); White Blood Count 16.39 10^3/uL (3.29-11.43)
[2024-02-01 03:57] LABS: Alanine Aminotransferase 11 U/L (0-33); Albumin Level 3.4 g/dL (3.5-5.2); Alkaline Phosphatase 98 U/L (35-105); Anion Gap 12.1 (5-19); Aspartate Amino Transferase 10 U/L (0-32); Blood Urea Nitrogen 15 mg/dL (8-23); Calcium 8.3 mg/dL (8.5-10.5); Carbon Dioxide 25 mmol/L (22-29); Chloride 103 mmol/L (98-107); Creatinine Clr Calc Pharmacy 82.9841; Globulin 2.8 g/dL (1.3-4.6); Glomerular Filtration Rate 85.1 mL/min (90-130); Glucose 108 mg/dL (65-115); Osmolality Calculated 283 mOsm/kg (285-295); Potassium 4.1 mmol/L (3.5-5.1); Sodium 136 mmol/L (136-145); Total Bilirubin 0.4 mg/dL (0.15-1.2); Total Protein 6.2 g/dL (6.6-8.7)
[2024-02-01 04:02] LABS: Partial Thromboplastin Time 84.1 SECONDS (23.9-36.7)
[2024-02-01 04:25] LABS: Slide Review Slide Review Perform
[2024-02-01] MEDS: piperacillin-tazobactam 3.375 GM in sodium chloride 0.9% (plus) 50 ML IV ×2 (05:30→13:22)
[2024-02-01] MEDS: isosorbide mononitrate ER 30 mg Tablet 15 MG PO (08:40)
[2024-02-01] MEDS: escitalopram 10 mg Tablet 20 MG PO (08:40)
[2024-02-01] MEDS: aspirin 81 mg EC Tablet PO (08:40)
[2024-02-01] MEDS: clopidogrel 75 mg Tablet PO (08:41)
--- NOTE | 2024-02-01 08:44 | PC.NURSE ---
SCHEDULED METOPROLOL HELD DUE TO BLOOD PRESSURE OF 107/55.
--- NOTE | 2024-02-01 08:45 | PC.NURSE ---
UPON ENTERING THE ROOM, PT WAS UP AND WALKING AROUND. PT WAS TOLD BY THIS NURSE THAT THIS NURSE WAS ADMINISTERIG HER HOME MEDICATIONS. PT ASKED THIS NURSE WHEN SHE WAS GETTING TO LEAVE TO GO TO [facility]. THIS NURSE EDUCATED PT ON HER ACCEPTANCE TO [facility] BUT THERE WAS STILL NO BED ASSIGNMENT. PT WAS VISABLY AGITATED AND STATED WELL WE ARE CALLING THEM [facility] BECAUSE I THINK THEY ARE GETTING BEDS FOR OTHER PEOPLE INSTEAD OF ME BECAUSE I DO NOT HAVE INSURANCE. THIS NURSE EDUCATED PT AGAIN ON THE WAY TRANSFERS WORK THROUGH THE ER AND HOW THIS NURSE WOULD CALL TO GET AN UPDATE FROM THE FACILITY. PT WAS STILL VERY UPSET AND STATED YOU GO AHEAD AND DO THAT. WE ARE TOO. PT WAS GIVEN HER MORNING MEDICATIONS AND WAS EDUCATED ON EACH MEDICATIONS. PT TOOK MEDICATIONS WITHOUT COMPLAINT. THIS NURSE EDUCATED PT AGAIN ABOUT CALLING THE ACCEPTING FACILITY FOR AN UPDATE AND PT STATED WELL YOU CAN DO THAT. WE ARE TOO. I JUST KNOW THEY ARE NOT WANTING ME UP THERE BECAUSE I DON'T HAVE INSURANCE. PT WAS EDUCATED AGAIN ON TRANSFER PROCESS AND HOW WE ARE DOING EVERYTHING WE CAN TO GET HER TRANSFERRED.
--- NOTE | 2024-02-01 09:14 | PC.NURSE ---
THIS NURSE SPOKE TO [facility] REGARDING BED STATUS. TRANSFER CENTER NOTIFIED THIS NURSE THAT THERE WOULD MOST LIKELY NOT BE A BED TODAY. PT AND PT FAMILY UPDATED ON BED STATUS. PT REQUESTED TO SPEAK WITH DOCTOR. THIS NURSE ASKED IF THERE WAS ANYTHING THIS NURSE COULD ANSWER FOR HER. PT STATES I NEED TO SPEAK TO THE DOCTOR BECAUSE WE JUST GOT OFF THE PHONE WITH [facility] AND THEY TOLD US THEY WOULD TAKE US. THIS NURSE EDUCATED PT THAT WE ATTEMPTED TO CALL THESE FACILITIES AND THEY DECLINED TRANSFER. PT STATED THEY TOLD US THEY HAVE THE GI DOCTOR WITH SOME KIND OF SPECIALTY WE NEED SO THAT IS WHERE WE WANT TO GO. THIS NURSE INSTRUCTED PT THAT SHE WOULD CALL DR. JUAREZ FOR PT. THIS NURSE APOLOGIZED TO PT ABOUT THE WAIT. PT STATES I KNOW IT IS NOT YOUR FAULT. IT IS JUST FRUSTRATING BECAUSE I HAVE BEEN HERE FOR 2 DAYS. THIS NURSE VERBALIZED UNDERSTANDING. VIRTUAL CUSTOMER ASSISTANT ATTEMPTED TO REACH DR. JUAREZ. THIS NURSE WAS NOTIFIED THAT DR. JUAREZ WOULD CALL BACK.
[2024-02-01 10:36] LABS: Partial Thromboplastin Time 69.7 SECONDS (23.9-36.7)
--- NOTE | 2024-02-01 13:19 | PM.PN ---
Subjective Subjective: Seen this morning in ER room 5. Family at bedside. Patient says she was having pain earlier however was given Dilaudid now feeling better. Family had a lot of questions regarding what is going on with the patient. I went over her CT scan results and current status of transfer. Apparently there is no bed available at [facility]. We will be attempting to transfer to a different hospital. ER intensive care unit registered nurse to make few more phone calls. Discussed with ER doctor as well. Patient denies nausea vomiting at this time She has been n.p.o. since 4 days. Did discuss with her the possibility of starting TPN. However patient has declined that at this time. She has not agreed to a PICC or central line at this time. I did tell her we can wait another day however this will need to be soon addressed. I explained that she will be needing hepatobiliary support along with GI services to which she goes Family also stated that they were considering just leaving the ER and I told him that was the right to do so. They would sign out AGAINST MEDICAL ADVICE at any time. Vitals/I&O/Wt Last Vital Signs Temp 98.0 F 01/30/24 11:23 Pulse 65 02/01/24 08:28 Resp 17 02/01/24 13:18 BP 107/55 02/01/24 08:45 Pulse Ox 96 02/01/24 09:11 O2 Del Method Room Air 02/01/24 08:30 O2 Flow Rate 2 01/31/24 05:53 01/31/24 02/01/24 02/01/24 22:59 06:59 14:59 Intake Total 50 / 100 187.5 / 287.5 1050 / 1050 Balance 50 / 100 187.5 / 287.5 1050 / 1050 Physical Exam Const: COMMON NORMALS: no acute distress and patient oriented x3 HENMT: COMMON NORMALS: normocephalic HEAD & SCALP: normocephalic Neck/C-Spine: COMMON NORMALS: no JVD Resp: COMMON NORMALS: normal respiratory effort, No retractions, No use of accessory muscles and clear to auscultation bilaterally AUSCULTATION: clear to auscultation bilaterally Cardio: COMMON NORMALS: no JVD, regular rate, regular rhythm, S1 normal heart sound present and S2 normal heart sound present RATE: regular rate RHYTHM: regular rhythm HEART SOUNDS: S1 normal heart sound present and S2 normal heart sound present GI: COMMON NORMALS: Normal to inspection, nondistended, normoactive bowel sounds present OTHER: Epigastric tenderness Extremity: COMMON NORMALS: no calf tenderness and no pedal edema Neuro: COMMON NORMALS: patient oriented x3, CN's II-XII intact bilaterally and moves all extremities Psych: COMMON NORMALS: mental status grossly normal Data 02/01/24 03:33 02/01/24 03:33 A&P Assessment and plan (1) History of pulmonary embolism: (2) Systolic congestive heart failure: (3) Hyperlipidemia: (4) Acute on chronic pancreatitis: (5) Pancreatic duct stones: (6) Pancreas cyst: (7) History of CAD (coronary artery disease): Plan Abdominal pain, -Secondary to acute on chronic pancreatitis -With acute necrotic fluid collection centered around pancreatic neck -calculi within the pancreatic duct with upstream ductal dilatation CT/CT abdomen pelvis w con* [id number] IMPRESSION: Findings most compatible with acute on chronic pancreatitis with a likely acute necrotic collection centered within the pancreatic neck. There is also a 0.7 cm calculus within the pancreatic duct with upstream ductal dilatation which may be contributing to pancreatitis. Recommend imaging follow-up after clinical treatment to evaluate for resolution. Plan -IV fluids -N.p.o. midnight -Zosyn for antibiotic coverage -Dilaudid for pain -Protonix for GI prophylaxis -Zofran and Reglan for nausea -Abdominal exams -Monitor electrolytes, LFTs, lipase, bili -Full code -Heparin drip for DVT prophylaxis Recent history of CAD, recent history of stenting 01/17/2024 Conclusions 1. Severe proximal to distal RCA stenosis status post successful revascularization with 2 stents.. 2. Mid Right Coronary Artery to Distal Right Coronary Artery was treated with a Drug Eluting Stent, Drug Eluting Stent, Drug Eluting Stent, and Balloon. Plan -Continue aspirin, Plavix -Telemetry monitoring -No chest pain complaints Recent history of pulmonary embolism 01/20/2024 CT/CT angio chest PE protcl [id number] Impression: Findings demonstrate a right subsegmental pulmonary artery filling defect consistent with pulmonary emboli, age indeterminate. No central or segmental pulmonary emboli are noted. ? Plan ? Hold Eliquis -Switch to heparin drip History of CHF CONCLUSIONS Left ventricle is mildly dilated. LV systolic function is moderately reduced with EF of 35 to 40%. Mild mitral regurgitation Mild mitral regurgitation Mild pulmonic regurgitation No comparison studies are available. -No complaints of shortness of breath -Monitor closely 01/31 Would continue n.p.o. status at this time Did consider the possibility of TPN however patient has declined that at this time. Continue on heparin drip. Continue aspirin Plavix ER will continue to work to find another bed at a different hospital. She has been accepted at [facility] however his waiting for bed availability. We will be checking with other hospitals around the area hopefully to see if we have a bed available sooner. I will switch her antibiotic to meropenem at this time. Will stop Zosyn. Meropenem is recommended in pancreatic necrosis due to better penetration. Attestations Medical Necessity Statement*: Patient is awaiting bed placement for transfer to tertiary care center at this time. Diagnoses History of pulmonary embolism Z86.711 Systolic congestive heart failure I50.20 Hyperlipidemia E78.5 Acute on chronic pancreatitis K85.90; K86.1 Pancreatic duct stones K86.89 Pancreas cyst K86.2 History of CAD (coronary artery disease) Z86.79
[2024-02-01] MEDS: sodium chloride 0.9% 1,000 ML 50 ML IV ×2 (13:20→22:56)
[2024-02-01] MEDS: MEROPENEM 2,000 MG in sodium chloride 0.9% (plus) 50 ML 100 MG IV (14:41)
[2024-02-01 17:14] LABS: Partial Thromboplastin Time 75.6 SECONDS (23.9-36.7)
--- NOTE | 2024-02-01 17:49 | PC.NURSE ---
PT FAMILY REQUESTED TO NOTIFY HOSPITALIST REGARDING PT BEING PAIN FREE. PT FAMILY STATES SINCE SHE IS PAIN FREE, I THINK HER CYST HAS RUPTURED. DR DENNISON NOTFIED. NO NEW ORDERS.
[2024-02-01] MEDS: ondansetron 2 mg/ML SDV 2 mL 4 MG IVP ×2 (20:10→20:11)
[2024-02-01 21:33] LABS: INR 1.15 (0.8-1.2)
[2024-02-01 21:46] LABS: Partial Thromboplastin Time 62.4 SECONDS (23.9-36.7)
[2024-02-01] MEDS: pantoprazole 40 mg SDV IVP (23:00)
[2024-02-01] MEDS: heparin drip 25,000 UNIT/500 ML PREMIX 20 UNIT IV (23:02)
[2024-02-02] VITALS (19 sets, daily range): BP systolic 91–135; BP diastolic 51–70; PULSE 58–68; RESP 16; O2SAT 91–99
[2024-02-02 02:19] LABS: Basophils % 0.3 %; Eosinophils # 0.3 10^3/uL (0.0-0.8); Eosinophils % 2.1 %; Hematocrit 31.5 % (36-47); Lymphocytes # 3.4 10^3/uL (0.8-4.8); Lymphocytes % 27.2 %; Mean Corpuscular HGB Conc 32.1 g/dL (30-55); Mean Corpuscular Hemoglobin 29.8 pg (27-33); Mean Corpuscular Volume 92.9 fl (85-98); Mean Platelet Volume 9.8 fL (7.4-10.4); Monocytes # 0.7 10^3/uL (0.2-0.9); Monocytes % 5.8 %; Neutrophils # 8.03 10^3/uL (1.8-7.7); Neutrophils % 64.4 %; Nucleated Red Blood Cells % 0 %; Platelet Count 316 10^3/cmm (157-399); Red Blood Count 3.39 10^6/uL (3.85-5.65); Red Cell Distribution Width 13.9 % (12.1-15.1); White Blood Count 12.48 10^3/uL (3.29-11.43)
[2024-02-02 02:46] LABS: Alanine Aminotransferase 9 U/L (0-33); Albumin Level 3.2 g/dL (3.5-5.2); Alkaline Phosphatase 93 U/L (35-105); Anion Gap 13.5 (5-19); Aspartate Amino Transferase 10 U/L (0-32); Blood Urea Nitrogen 11 mg/dL (8-23); Calcium 8.3 mg/dL (8.5-10.5); Carbon Dioxide 22 mmol/L (22-29); Chloride 106 mmol/L (98-107); Creatinine Clr Calc Pharmacy 116.1777; Globulin 2.7 g/dL (1.3-4.6); Glomerular Filtration Rate 125.4 mL/min (90-130); Glucose 82 mg/dL (65-115); Magnesium 1.7 mg/dL (1.7-2.3); Osmolality Calculated 284 mOsm/kg (285-295); Potassium 3.5 mmol/L (3.5-5.1); Sodium 138 mmol/L (136-145); Total Bilirubin 0.4 mg/dL (0.15-1.2); Total Protein 5.9 g/dL (6.6-8.7)
[2024-02-02 08:57] LABS: Partial Thromboplastin Time 51.6 SECONDS (23.9-36.7)
--- NOTE | 2024-02-02 10:29 | CT_ITS ---
WS: [id number] CT ABDOMEN AND PELVIS WITH CONTRAST HISTORY: abdominal pain TECHNIQUE: Imaging performed of the abdomen and pelvis with IV contrast. Single phase imaging of the abdomen. Coronal and sagittal reformats are submitted. All CT scans at [facility] use at [address] one of these dose optimization techniques: automated exposure control; mA and/or kV adjustment per patient size (includes targeted exams where dose is matched to clinical indication); or iterative re construction. IV CONTRAST: Omnipaque 350; 100 mL IV. Oral contrast: No DLP: 688.77 mGy.cm COMPARISON: 01/30/2024 Lower thorax: Lung bases are clear. Heart is normal size. No hiatal hernia. Liver/biliary system: Normal size with no intrahepatic dilatation. Gallbladder: Mildly distended gallbladder. Pancreas: Reidentified is a thick-walled enhancing collection centered near the pancreatic neck measu ring 4.4 x 4.5 cm. Distal pancreatic duct dilatation. There are numerous calcifications in the distal duct but also in the proximal duct. There is a small cluster of calcifications measuring 10 x 7 mm i n the pancreatic head duct. There is an additional stone which may be in the distal common bile duct. The common bile duct is slightly dilated. Duct dilatation similar to 01/30/2024 but new since 2019. Spleen: Normal size spleen. No mass or infarct. Adrenal glands: Normal. Right kidney: Normal. Left kidney: Normal. Aorta: Mild atherosclerosis with no aneurysm. The pancreatic pseudocyst abuts the celiac axis and the superior mesenteric vein. Lymphadenopathy: None. Free fluid: None. GI tract: No GI tract obstruction. Abdominal wall: Unremarkable abdominal wall. No hernia. Pelvis: No free fluid or adenopathy within the pelvis. Bones: Unremarkable. CT/CT abdomen pelvis w con* [id number] IMPRESSION: 1. Reidentified is a cystic mass with enhancing wall centered in the pancreati c neck measures 4.4 x 4.5 cm. 2. Marked pancreatic duct dilatation both proximal and distal to the pancreati c pseudocyst. 3. Numerous small calcifications in the pancreatic head are probably causing o bstruction of the duct. Suspect there may be an additional calcification in the distal common bile duct. 4. Mild common bile duct dilatation with possible distal stone. No intrahepati c duct dilatation. 5. Pancreatic pseudocyst is displacing and abutting the celiac axis and SMV. P atient at risk for pseudocyst erosion into the adjacent vessels.
--- NOTE | 2024-02-02 11:33 | PC.NURSE ---
Still pending bed assignments from [facility] and [facility]. Called [facility] ([facility]) 02/01 @4230, clouding imaging and faxing facesheet.
[2024-02-02] MEDS: iohexol 350 mg/mL 500 mL Btl (per mL) IV (12:29)
[2024-02-02] MEDS: aspirin 81 mg Chew Tablet PO (14:08)
[2024-02-02] MEDS: clopidogrel 75 mg Tablet PO (14:09)
--- NOTE | 2024-02-02 14:15 | ED_ITS ---
HPI - Chest Pain 2 General: Chief Complaint: Chest Pain Stated Complaint: sob, chest pain, nausea Time Seen by Provider: 01/30/24 12:58 History of Present Illness: I seen the patient today. Pain has been relieved. Patient had concerns requesting imaging so this was ordered. No significant changes in her imaging today. There is been much difficulty in transfer. Multiple hospitals have been contacted. I am speaking with [facility] at this point and seeing recommendation to be transferred there. Related Data Home Medications Medication Instructions Recorded Confirmed atorvastatin 40 mg tablet 40 mg PO QPM 01/18/24 01/30/24 escitalopram oxalate 20 mg tablet 20 mg PO DAILY 01/18/24 01/30/24 pantoprazole 40 mg tablet,delayed 40 mg PO BID 01/18/24 01/30/24 release sucralfate 1 gram tablet 1 g PO QID PRN Stomach Upset 01/18/24 01/30/24 estradiol 2 mg tablet 2 mg PO DAILY 01/30/24 01/30/24 Previous Rx's Medication Instructions Recorded albuterol sulfate 90 mcg/actuation 1 inh inhalation QID PRN wheezing 01/19/24 breath activated powder inhaler #1 ea aspirin 81 mg tablet,delayed 81 mg PO DAILY #90 tabs 01/19/24 release clopidogrel 75 mg tablet 75 mg PO DAILY #90 tabs 01/19/24 metoprolol tartrate 50 mg tablet 50 mg PO BID #120 tabs 01/19/24 apixaban 5 mg (74 tabs) tablets in See Rx Instructions PO .COMPLEX 01/20/24 a dose pack ([employer] DVT-PE Treat #74 ea 30D Start) isosorbide mononitrate 30 mg 15 mg (1/2 x 30 mg) PO DAILY #30 01/27/24 tablet,extended release 24 hr tabs Allergies Allergy/AdvReac Type Severity Reaction Status Date / Time No Known Allergies Allergy Verified 01/30/24 11:22 Review of Systems 2 Narrative: Constitutional symptoms: Negative except as documented in HPI. Skin symptoms: Negative except as documented in HPI. Eye symptoms: Negative except as documented in HPI. ENMT symptoms: Negative except as documented in HPI. Respiratory symptoms: Negative except as documented in HPI. Cardiovascular symptoms: Negative except as documented in HPI. Gastrointestinal symptoms: Negative except as documented in HPI. Genitourinary symptoms: Negative except as documented in HPI. Musculoskeletal symptoms: Negative except as documented in HPI. Neurologic symptoms: Negative except as documented in HPI. Psychiatric symptoms: Negative except as documented in HPI. Endocrine symptoms: Negative except as documented in HPI. PFSH ED 2 PFSH: Medical History (Updated 01/31/24 @ 22:05 by Miguel Ángel Thompson MD) History of pulmonary embolism Community acquired pneumonia CAD (coronary artery disease) Social History Smoking and tobacco/nicotine status: current every day tobacco/nicotine user Alcohol intake: current Marital status: Physical Exam 2 Narrative: EXAM NARRATIVE: General: Alert, no acute distress. Skin: Warm, dry. Head: Normocephalic, atraumatic. Neck: Supple, trachea midline. Eye: Extraocular movements are intact. Ears, nose, mouth and throat: mucosa moist. Cardiovascular: Regular, Normal peripheral perfusion. Respiratory: Lungs are clear to auscultation, respirations are non-labored, breath sounds are equal, Symmetrical chest wall expansion. Gastrointestinal: Soft, Nontender, Non distended Musculoskeletal: Normal ROM, no deformity. Neurological: Alert and oriented, No focal neurological deficit observed. Psychiatric: Cooperative, appropriate mood & affect. Course 2 Vital Signs: Vital signs: Vital Signs Temperature 98.0 F 01/30/24 11:23 Pulse Rate 65 02/02/24 08:20 Respiratory Rate 16 02/02/24 05:20 Blood Pressure 135/70 02/02/24 12:00 Pulse Oximetry 91 02/02/24 12:00 Oxygen Delivery Me thod Room Air 02/02/24 08:20 Oxygen Flow Rate 2 02/02/24 05:20 MDM - Chest Pain Medical Decision Making I discussed the patient with GI and not home. They feel patient will need an EUS guided cyst gastrostomy tube. This is not done there and likely will need tertiary care. Patient has finally been placed. Assessment and plan: Cystic mass in the pancreatic neck. Pancreatic duct dilatation Pancreatic pseudocyst that is displacing celiac axis and SMV. Patient is being transferred to tertiary care center. Lab Data 02/02/24 02:14 02/02/24 02:14 Radiology Impressions Chest X-Ray 01/30/24 11:38 IMPRESSION: Stable chest without acute abnormality. Abdomen/Pelvis CT 02/02/24 10:29 IMPRESSION: 1. Reidentified is a cystic mass with enhancing wall centered in the pancreatic neck measures 4.4 x 4.5 cm. 2. Marked pancreatic duct dilatation both proximal and distal to the pancreatic pseudocyst. 3. Numerous small calcifications in the pancreatic head are probably causing obstruction of the duct. Suspect there may be an additional calcification in the distal common bile duct. 4. Mild common bile duct dilatation with possible distal stone. No intrahepatic duct dilatation. 5. Pancreatic pseudocyst is displacing and abutting the celiac axis and SMV. Patient at risk for pseudocyst erosion into the adjacent vessels. Laboratory Results WBC 12.48 10^3/uL (3.29-11.43) H 02/02/24 02:14 RBC 3.39 10^6/uL (3.85-5.65) L 02/02/24 02:14 Hgb 10.10 g/dL (11.27-16.99) L 02/02/24 02:14 Hct 31.5 % (36-47) L 02/02/24 02:14 MCV 92.9 fl (85-98) 02/02/24 02:14 MCH 29.8 pg (27-33) 02/02/24 02:14 MCHC 32.1 g/dL (30-55) 02/02/24 02:14 RDW 13.9 % (12.1-15.1) 02/02/24 02:14 Plt Count 316 10^3/cmm (157-399) 02/02/24 02:14 MPV 9.8 fL (7.4-10.4) 02/02/24 02:14 Neut % (Auto) 64.4 % 02/02/24 02:14 Lymph % (Auto) 27.2 % 02/02/24 02:14 [place] % (Auto) 5.8 % 02/02/24 02:14 Eos % (Auto) 2.1 % 02/02/24 02:14 Baso % (Auto) 0.3 % 02/02/24 02:14 Neut # (Auto) 8.03 10^3/uL (1.8-7.7) H 02/02/24 02:14 Lymph # (Auto) 3.4 10^3/uL (0.8-4.8) 02/02/24 02:14 [place] # (Auto) 0.7 10^3/uL (0.2-0.9) 02/02/24 02:14 Eos # (Auto) 0.3 10^3/uL (0.0-0.8) 02/02/24 02:14 Baso # (Auto) 0.0 10^3/uL (0.0-0.1) 02/02/24 02:14 Nucleated RBC % (auto) 0 % 02/02/24 02:14 Nucleated RBCs # 0.0 /100WBC 02/02/24 02:14 PT 15.10 SECONDS (12.1-14.9) H 02/01/24 20:56 INR 1.15 (0.8-1.2) 02/01/24 20:56 APTT 48.3 SECONDS (23.9-36.7) H 02/02/24 14:12 Sodium 138 mmol/L (136-145) 02/02/24 02:14 Potassium 3.5 mmol/L (3.5-5.1) 02/02/24 02:14 Chloride 106 mmol/L (98-107) 02/02/24 02:14 Carbon Dioxide 22 mmol/L (22-29) 02/02/24 02:14 Anion Gap 13.5 (5-19) 02/02/24 02:14 BUN 11 mg/dL (8-23) 02/02/24 02:14 Creatinine 0.5 mg/dL (0.5-0.9) 02/02/24 02:14 GFR Calculation 125.4 mL/min (90-130) 02/02/24 02:14 Glucose 82 mg/dL (65-115) 02/02/24 02:14 Estimat Average Glucose 134 01/31/24 21:36 Hemoglobin A1c 6.3 % (4.0-6.0) H 01/31/24 21:36 Calculated Osmolality 284 mOsm/kg (285-295) L 02/02/24 02:14 Lactic Acid 1.5 mmol/L (0.5-2.2) 01/31/24 21:36 Calcium 8.3 mg/dL (8.5-10.5) L 02/02/24 02:14 Magnesium 1.7 mg/dL (1.7-2.3) 02/02/24 02:14 Total Bilirubin 0.4 mg/dL (0.15-1.2) 02/02/24 02:14 GGT 24 U/L (5-36) 01/31/24 21:36 AST 10 U/L (0-32) 02/02/24 02:14 ALT 9 U/L (0-33) 02/02/24 02:14 Alkaline Phosphatase 93 U/L (35-105) 02/02/24 02:14 Troponin T Baseline 23 ng/L (0-10) H 01/30/24 12:01 Troponin T 120 Minute 22.46 ng/L (0-10) H 01/30/24 14:08 Delta Troponin T -0.54 ABS# (0-10) L 01/30/24 14:08 NT-Pro-B Natriuret Pep 528 pg/mL (0-125) H 01/31/24 21:36 Total Protein 5.9 g/dL (6.6-8.7) L 02/02/24 02:14 Albumin 3.2 g/dL (3.5-5.2) L 02/02/24 02:14 Globulin 2.7 g/dL (1.3-4.6) 02/02/24 02:14 Triglycerides 130 mg/dL (0-150) 01/31/24 21:36 Cholesterol 185 mg/dL (0-200) 01/31/24 21:36 LDL Cholesterol, Calc 120 mg/dL (50-129) 01/31/24 21:36 HDL Cholesterol 39 mg/dL (60-100) L 01/31/24 21:36 LDL/HDL Ratio 3.08 RATIO (0.00-3.22) 01/31/24 21:36 Cholesterol/HDL Ratio 4.74 mg/dL (0.0-4.40) H 01/31/24 21:36 Lipase 26 U/L (13-60) 01/31/24 21:36 Procalcitonin 0.05 ng/mL (0-0.5) 01/31/24 21:36 TSH 2.75 uIU/mL (0.27-4.20) 01/31/24 21:36 Urine Color Yellow (Yellow) 02/01/24 00:44 Urine Appearance Clear (CLEAR) 02/01/24 00:44 Urine pH 6 (5-7) 02/01/24 00:44 Ur Specific [place] 1.010 (1.005-1.030) 02/01/24 00:44 Urine Protein Trace (Negative) 02/01/24 00:44 Urine Glucose (UA) Norm (Normal) 02/01/24 00:44 Urine Ketones Negative (Negative) 02/01/24 00:44 Urine Blood 3+ (Negative) H 02/01/24 00:44 Urine Nitrate Negative (Negative) 02/01/24 00:44 Urine Bilirubin Neg (Negative) 02/01/24 00:44 Urine Urobilinogen Norm mg/dL (Negative) 02/01/24 00:44 Ur Leukocyte Esterase Negative (Negative) 02/01/24 00:44 Urine RBC 0-4 /hpf (0-2) H 02/01/24 00:44 Urine WBC 5-10 /hpf (0-5) H 02/01/24 00:44 Ur Squamous Epith Cells 10-15 /hpf (0-5) H 02/01/24 00:44 Amorphous Sediment Not Reportable 02/01/24 00:44 Urine Bacteria Trace /hpf (NONE) 02/01/24 00:44 Urine Mucus Trace /hpf 02/01/24 00:44 Urine Yeast Trace /hpf 02/01/24 00:44 All radiology interpretation(s) finalized by discharge Discharge Plan Discharge Patient Disposition: Xfer Short-Term Hosp Clinical Impression: Acute on chronic pancreatitis, Pancreas cyst, Pancreatic duct stones Leukocytosis Qualifiers: Leukocytosis type: unspecified Qualified Code(s): D72.829 - Elevated white blood cell count, unspecified Condition: Stable Referrals: Noe Johansen DO [Primary Care Provider] - Coding Level of Care Code ED Manager Developmental for g Guadalupe
[2024-02-02 14:39] LABS: Partial Thromboplastin Time 48.3 SECONDS (23.9-36.7)
--- NOTE | 2024-02-02 17:10 | P.PN_ITS ---
Subjective 2 Subjective: Hospital course, labs appreciated. Patient still in ER awaiting bed at higher facility given need for hepatobiliary support. Does not have any further abdominal pain. Early in the morning family was concerned about pancreatic rupture because they had read relief for abdominal pain with pancreatitis could mean pancreatic rupture as well. Patient had CT abdomen pelvis as per ER physician which showed stable severe pancreatitis with pancreatic bile duct dilatation. Patient continues to remain n.p.o. on IV fluids. Had declined TPN in the past. Vitals/I&O/Wt Last Vital Signs Temp 98.0 F 01/30/24 11:23 Pulse 65 02/02/24 08:20 Resp 16 02/02/24 05:20 BP 135/70 02/02/24 12:00 Pulse Ox 91 02/02/24 12:00 O2 Del Method Room Air 02/02/24 08:20 O2 Flow Rate 2 02/02/24 05:20 02/02/24 02/02/24 02/02/24 06:59 14:59 22:59 Intake Total 204.667 / 204.667 Balance 204.667 / 204.667 Physical Exam 2 Const: COMMON NORMALS: no acute distress and patient oriented x3 HENMT: COMMON NORMALS: normocephalic HEAD & SCALP: normocephalic Neck/C-Spine: COMMON NORMALS: no JVD Resp: COMMON NORMALS: normal respiratory effort, No retractions, No use of accessory muscles and clear to auscultation bilaterally AUSCULTATION: clear to auscultation bilaterally Cardio: COMMON NORMALS: no JVD, regular rate, regular rhythm, S1 normal heart sound present and S2 normal heart sound present RATE: regular rate RHYTHM: regular rhythm HEART SOUNDS: S1 normal heart sound present and S2 normal heart sound present GI: COMMON NORMALS: Normal to inspection, nondistended, normoactive bowel sounds present OTHER: Epigastric tenderness Extremity: COMMON NORMALS: no calf tenderness and no pedal edema Neuro: COMMON NORMALS: patient oriented x3, CN's II-XII intact bilaterally and moves all extremities Psych: COMMON NORMALS: mental status grossly normal Data 02/02/24 02:14 02/02/24 02:14 Micro: Microbiology 02/01/24 00:44 Urine Culture - Preliminary Urine,Clean Catch A&P Assessment and plan (1) History of pulmonary embolism: (2) Systolic congestive heart failure: (3) Hyperlipidemia: (4) Acute on chronic pancreatitis: (5) Pancreatic duct stones: (6) Pancreas cyst: (7) History of CAD (coronary artery disease): Plan Abdominal pain, -Secondary to acute on chronic pancreatitis -With acute necrotic fluid collection centered around pancreatic neck -calculi within the pancreatic duct with upstream ductal dilatation CT/CT abdomen pelvis w con* [id number] IMPRESSION: Findings most compatible with acute on chronic pancreatitis with a likely acute necrotic collection centered within the pancreatic neck. There is also a 0.7 cm calculus within the pancreatic duct with upstream ductal dilatation which may be contributing to pancreatitis. Recommend imaging follow-up after clinical treatment to evaluate for resolution. Plan -IV fluids -N.p.o. midnight -Zosyn for antibiotic coverage -Dilaudid for pain -Protonix for GI prophylaxis -Zofran and Reglan for nausea -Abdominal exams -Monitor electrolytes, LFTs, lipase, bili -Full code -Heparin drip for DVT prophylaxis Recent history of CAD, recent history of stenting 01/17/2024 Conclusions 1. Severe proximal to distal RCA stenosis status post successful revascularization with 2 stents.. 2. Mid Right Coronary Artery to Distal Right Coronary Artery was treated with a Drug Eluting Stent, Drug Eluting Stent, Drug Eluting Stent, and Balloon. Plan -Continue aspirin, Plavix -Telemetry monitoring -No chest pain complaints Recent history of pulmonary embolism 01/20/2024 CT/CT angio chest PE protcl [id number] Impression: Findings demonstrate a right subsegmental pulmonary artery filling defect consistent with pulmonary emboli, age indeterminate. No central or segmental pulmonary emboli are noted. ? Plan ? Hold Eliquis -Switch to heparin drip History of CHF CONCLUSIONS Left ventricle is mildly dilated. LV systolic function is moderately reduced with EF of 35 to 40%. Mild mitral regurgitation Mild mitral regurgitation Mild pulmonic regurgitation No comparison studies are available. -No complaints of shortness of breath -Monitor closely Plan for the day: 02/01: Concern for mild hematuria. Most likely concentrated urine. Can check urinalysis. Given recent history of CAD for now we will continue with aspirin, Plavix, heparin drip. Pancreatitis: Continue with IV meropenem. Patient refused TPN. Continue IV hydration. Appreciate lab work. Transfer to tertiary center once bed available. Attestations 2 Medical Necessity Statement*: Requires transfer to tertiary center given concerns for pancreatic duct dilatation in a patient presented with pancreatitis as patient requires hepatobiliary support with recent history of CAD post PCI Diagnoses History of pulmonary embolism Z86.711 Systolic congestive heart failure I50.20 Hyperlipidemia E78.5 Acute on chronic pancreatitis K85.90; K86.1 Pancreatic duct stones K86.89 Pancreas cyst K86.2 History of CAD (coronary artery disease) Z86.79
[2024-02-02 18:10] LABS: Amylase 22 U/L (21-101)
--- NOTE | 2024-02-02 23:11 | DCPLANNER ---
Patient was requested to stay in [facility]- [facility] but call back in am spoke to Dr. Luna. Dr. Luna spoke with the patient and she stated anywhere but [facility]- Called - No beds 01/[address] [facility]- No beds only ICU at this time 01/29 Called [facility] - Declined - needs Hepatobiliary Specialist 01/29 Called [facility]- Declined Needs specialist 01/29 Called [facility]- unable to accommodate needs. 01/29 Spoke to Jeremy to talk with patient possibly needing to go to [facility] for care-01/29 Patient was ok with going to [facility] - 01/[address] [facility] transfer line- [facility] called back about 2 hours later and RAEANN Mccrary Accepted- Waiting on Bed- Heptobiliary Specialist on Board. 01/29-
--- NOTE | 2024-02-02 23:25 | DCPLANNER ---
[facility]eds [place] [facility] [facility] beds [place] 0 beds [facility]- No beds [facility] [address] [facility] RAEANN Mccrary called with bed assignment - 621 B [phone] Vanessa.
== END 2024-02-02 17:15 | disposition short-term general hospital (02) ==
LOC: ER 02-01 08:29 → ER IP 02-01 08:55 → ER 02-02 12:41
PROVIDERS: Emergency Medicine; Family Medicine; Internal Medicine; Emergency Provider Emergency Medicine; PCP Electrodiagnostic Medicine
DX: D72.829 Elevated white blood cell count, unspecified (principal); K86.1 Other chronic pancreatitis; K86.2 Cyst of pancreas; K86.89 Other specified diseases of pancreas; I25.10 Atherosclerotic heart disease of native coronary artery without angina pectoris; Z72.0 Tobacco use; Z86.711 Personal history of pulmonary embolism
CPT/HCPCS: 36415; 71045; 74177; 80053; 80061; 81001; 82150; 82977; 83036; 83605; 83690; 83735; 83880; 84145; 84443; 84484; 85025; 85610; 85730; 87086; 93005; 94664; 96365; 96366; 96375; 96376; 99285; J1170; J1644; J2185; J2270; J2405; J2470; J2543; J7030

== ENCOUNTER 2024-03-04 09:05 | Outpatient (CLI) | payer SELFPAY ==
--- NOTE | 2024-03-04 09:15 | USCV_ITS ---
Humaira Birmingham Age: 63 Gender: F : 1960 Exam Date: 03/04/2024 09:24 Ordering Phys: Neha Taylor Technologist: Exam Location: [facility] [place] Indication: ef BP: 120 / 70 HR: Rhythm: Sinus Technical Quality: Adequate MEASUREMENTS (Male / Female) Normal Values 2D ECHO LV Diastolic Diameter PLAX 4.4 cm 4.2 - 5.9 / 3.9 - 5.3 cm IVS Diastolic Thickness 1.3 cm 0.6 - 1.0 / 0.6 - 0.9 cm IVS Systolic Thickness 1.4 cm LVPW Diastolic Thickness 1.2 cm 0.6 - 1.0 / 0.6 - 0.9 cm LVPW Systolic Thickness 1.3 cm LVOT Diameter 2.1 cm LV Ejection Fraction 2D Teich 44.5 % LV Ejection Fraction MOD 4C 64.6 % LV Ejection Fraction MOD 2C 66.3 % LV Ejection Fraction 2C AL 66.8 % LA Diameter 3.8 cm RA Systolic Volume 4C AL 41.4 ml RA Systolic Volume 4C MOD 40.5 ml LA Sys Volume AL 53.3 cm cubed LA Sys Volume Index AL 27.5 cm cubed/m squared Aorta at Sinotubular Diameter 2.8 cm IVC Diameter 1.4 cm M-MODE LA Ao Ratio MM 1.5 AV Cusp Separation MM 2.1 cm FINDINGS Left Ventricle Normal left ventricular size, systolic function and wall thickness, with no regional wall motion abnormalities. Left ventricular ejection fraction is estimated at 60 %. Right Ventricle Normal right ventricular size and systolic function. Right Atrium Left Atrium Mitral Valve Aortic Valve Tricuspid Valve Pulmonic Valve Pericardium Aorta IVC CONCLUSIONS Please note that this is any complete echo valvular data assessment was not performed or missing. Please complete and repeat the echocardiogram Normal left ventricular size, systolic function and wall thickness, with no regional wall motion abnormalities. Left ventricular ejection fraction is estimated at 60 %. Normal right ventricular size and systolic function. Elias Tom MD (Electronically Signed) Final Date: 06 March 2024 13:22 S
== END 2024-03-04 09:06 | disposition home or self-care (01) ==
LOC: RAD 09:06
PROVIDERS: PCP Electrodiagnostic Medicine; Visit Provider Nurse Practitioner Family
DX: I21.4 Non-ST elevation (NSTEMI) myocardial infarction (principal); I50.20 Unspecified systolic (congestive) heart failure
CPT/HCPCS: 93308

== ENCOUNTER 2024-04-16 16:14 | Emergency (ER) | payer OTHER, SELFPAY ==
--- NOTE | 2024-04-16 16:15 | ECG_ITS ---
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 Measurements Intervals [place] Rate: 60 P: -2 MA: 155 QRS: 63 QRSD: 106 T: 72 QT: 432 QTc: 432 Interpretive Statements SINUS RHYTHM INCOMPLETE RIGHT BUNDLE BRANCH BLOCK [90+ ms QRS DURATION, TERMINAL R IN V1/V2, 40+ ms S IN I/aVL/V4/V5/V6] MINIMAL ST DEPRESSION [0.025+ mV ST DEPRESSION] No previous ECG available for comparison Electronically Signed On 04-17-2024 10:26:33 GOLF TECHNICIAN by Clemente Guidry M.D. [email or web address]
--- NOTE | 2024-04-16 16:15 | XRR_ITS ---
PROCEDURE INFORMATION: Exam: XR Chest Exam date and time: 04/16/2024 5:10 PM Age: 63 years old Clinical indication: Chest pressure; Patient HX: Chest pain; Heaviness TECHNIQUE: Imaging protocol: Radiologic exam of the chest. Views: 1 view. COMPARISON: CR XR chest 1V portable [id number] 01/30/2024 11:58 AM FINDINGS: Lungs: Unremarkable. No consolidation. Pleural spaces: Unremarkable. No pleural effusion. No pneumothorax. Heart/Mediastinum: Heart size not optimally evaluated with a single AP view of the chest. Bones/joints: Unremarkable. XR/XR chest 1V portable [id number] IMPRESSION: No evidence for acute cardiopulmonary disease.
[2024-04-16 16:30] VITALS: BP 121/70; PULSE 62; RESP 18; TEMP 36.5; O2SAT 97
--- NOTE | 2024-04-16 16:44 | W.ED.CHESTPA ---
HPI - Chest Pain General: Chief Complaint: Chest Pain Stated Complaint: chest pain and heaviness Time Seen by Provider: 04/16/24 16:17 Source: patient Mode of arrival: ambulatory Limitations: no limitations History of Present Illness: Patient is a 63-year-old female with history of smoking, coronary disease with previous stents (high-grade lesion of LAD and RCA in Dec 2023), hyperlipidemia, and depression here with complaints of chest pain that started a few hours ago. She states she was doing laundry when she began developing pain substernally into the left side of her chest. Patient states she laid down to rest and ate some peanut butter cookies. She states she began feeling better but is now left with a burning Icy Hot sensation across her chest. She appears in no acute distress upon arrival. She has been compliant with her cardiac medication. Since her NSTEMI back in December, she has had other medical conditions including pancreatic cyst/necrotic area. She was transferred to [facility] for this. She states they could not perform surgery due to her recent anticoagulation for her NSTEMI. They treated her with pancreatic stenting. She feels like she is doing fine in regards to this. She has had recent echocardiogram showing a normal heart function. MD complaint: chest pain Pertinent past history: coronary artery disease Onset (ago): hour(s) Timing of current episode: other (improving) Prior episodes: Yes Pain location: substernal and left chest Pain radiation: none Quality: heaviness and burning Relieving factors: rest Exacerbating factors: nothing Associated symptoms: Deny abdominal pain, dyspnea, fever(s), nausea, palpitations, syncope or vomiting Treatment prior to arrival: none Risk Factors: Thoracic aortic dissection risk factors: none Related Data Home Medications Medication Instructions Recorded Confirmed atorvastatin 40 mg tablet 40 mg PO QPM 01/18/24 03/15/24 escitalopram oxalate 20 mg tablet 20 mg PO DAILY 01/18/24 03/15/24 sucralfate 1 gram tablet 1 g PO QID PRN Stomach Upset 01/18/24 03/15/24 estradiol 2 mg tablet 2 mg PO DAILY 01/30/24 03/15/24 pantoprazole 40 mg tablet,delayed 40 mg PO BID PRN 03/15/24 03/15/24 release Previous Rx's Medication Instructions Recorded albuterol sulfate 90 mcg/actuation 1 inh inhalation QID PRN wheezing 01/19/24 breath activated powder inhaler #1 ea clopidogrel 75 mg tablet 75 mg PO DAILY #90 tabs 01/19/24 metoprolol tartrate 50 mg tablet 50 mg PO BID #120 tabs 01/19/24 apixaban 5 mg (74 tabs) tablets in See Rx Instructions PO .COMPLEX 01/20/24 a dose pack ([employer] DVT-PE Treat #74 ea 30D Start) isosorbide mononitrate 30 mg 15 mg (1/2 x 30 mg) PO DAILY #30 01/27/24 tablet,extended release 24 hr tabs Allergies Allergy/AdvReac Type Severity Reaction Status Date / Time No Known Allergies Allergy Verified 04/16/24 16:34 Review of Systems Const: Denies: fever(s) Card: Reports: chest pain; Denies: palpitations, irregular heart rhythm, edema, swelling of feet/ankles, lightheadedness, syncope, pre-syncope, dyspnea on exertion, orthopnea, leg pain with exertion or acrocyanosis Resp: Denies: dyspnea, productive cough, non-productive cough, wheezing, pain on inspiration, hemoptysis or chest congestion GI: Denies: abdominal pain, nausea, vomiting or diarrhea Musc: Denies: back pain Neuro: Denies: numbness in extremities, weakness in extremities, sensory changes or dizziness PFS ED PFSH: Medical History History of pulmonary embolism Community acquired pneumonia CAD (coronary artery disease) Social History Smoking and tobacco/nicotine status: former use of tobacco/nicotine Alcohol intake: current Marital status: Physical Exam Const: COMMON NORMALS: no acute distress, average body habitus, patient oriented x3, no limitations, alert and well nourished GENERAL APPEARANCE: cooperative ORIENTATION/CONSCIOUSNESS: Yes awake, Yes oriented to person, Yes oriented to place and Yes oriented to time Neck/C-Spine: COMMON NORMALS: no JVD Chest: COMMONS NORMALS: normal inspection of the chest and normal palpation of entire chest wall Resp: COMMON NORMALS: normal respiratory effort and clear to auscultation bilaterally AUSCULTATION: clear to auscultation bilaterally Cardio: COMMON NORMALS: no JVD, regular rate and regular rhythm RATE: regular rate RHYTHM: regular rhythm GI: COMMON NORMALS: Soft to palpation and no masses PALPATION: Yes Soft to palpation Extremity: COMMON NORMALS: no clubbing, cyanosis or edema, no calf tenderness and no pedal edema GENERAL: Yes normal exam except as noted Neuro: COMMON NORMALS: patient oriented x3 SENSORIUM/ORIENTATION: Yes alert, Yes oriented to person, Yes oriented to place and Yes oriented to time Course Vital Signs: Vital signs: Vital Signs Temperature 97.7 F 04/16/24 16:30 Pulse Rate 62 04/16/24 19:07 Respiratory Rate 18 04/16/24 19:07 Blood Pressure 161/120 04/16/24 19:07 Pulse Oximetry 98 04/16/24 19:07 Oxygen Delivery Me thod Room Air 04/16/24 19:07 MDM - Chest Pain Medical Decision Making Patient states she has been asymptomatic/comfortable throughout her emergency department visit. Does report some slight burning but otherwise asymptomatic. Her vital signs were stable upon arrival. Her baseline troponin was 8 with a 2-hour of 8.14. Her baseline and repeat EKGs are nonischemic. CXR is unremarkable. She will be allowed discharge with strict return precautions. I would like her to follow-up with primary care and/or cardiology next week. Medical Records I reviewed the patient's medical records. Lab Data I reviewed the patient's lab results. 04/16/24 16:45 04/16/24 16:45 Radiology Impressions Chest X-Ray 04/16/24 16:15 IMPRESSION: No evidence for acute cardiopulmonary disease. Laboratory Results WBC 14.61 10^3/uL (3.29-11.43) H 04/16/24 16:45 RBC 4.68 10^6/uL (3.85-5.65) 04/16/24 16:45 Hgb 13.70 g/dL (11.27-16.99) 04/16/24 16:45 Hct 42.2 % (36-47) 04/16/24 16:45 MCV 90.2 fl (85-98) 04/16/24 16:45 MCH 29.3 pg (27-33) 04/16/24 16:45 MCHC 32.5 g/dL (30-55) 04/16/24 16:45 RDW 13.8 % (12.1-15.1) 04/16/24 16:45 Plt Count 373 10^3/cmm (157-399) 04/16/24 16:45 MPV 9.4 fL (7.4-10.4) 04/16/24 16:45 Neut % (Auto) 55.1 % 04/16/24 16:45 Lymph % (Auto) 35.3 % 04/16/24 16:45 [place] % (Auto) 5.4 % 04/16/24 16:45 Eos % (Auto) 3.4 % 04/16/24 16:45 Baso % (Auto) 0.5 % 04/16/24 16:45 Neut # (Auto) 8.04 10^3/uL (1.8-7.7) H 04/16/24 16:45 Lymph # (Auto) 5.2 10^3/uL (0.8-4.8) H 04/16/24 16:45 [place] # (Auto) 0.8 10^3/uL (0.2-0.9) 04/16/24 16:45 Eos # (Auto) 0.5 10^3/uL (0.0-0.8) 04/16/24 16:45 Baso # (Auto) 0.1 10^3/uL (0.0-0.1) 04/16/24 16:45 Nucleated RBC % (auto) 0 % 04/16/24 16:45 Nucleated RBCs # 0.0 /100WBC 04/16/24 16:45 Sodium 137 mmol/L (136-145) 04/16/24 16:45 Potassium 4.0 mmol/L (3.5-5.1) 04/16/24 16:45 Chloride 104 mmol/L (98-107) 04/16/24 16:45 Carbon Dioxide 21 mmol/L (22-29) L 04/16/24 16:45 Anion Gap 16.0 (5-19) 04/16/24 16:45 BUN 18 mg/dL (8-23) 04/16/24 16:45 Creatinine 0.7 mg/dL (0.5-0.9) 04/16/24 16:45 GFR Calculation 85.1 mL/min (90-130) L 04/16/24 16:45 Glucose 139 mg/dL (65-115) H 04/16/24 16:45 Calculated Osmolality 288 mOsm/kg (285-295) 04/16/24 16:45 Calcium 9.1 mg/dL (8.5-10.5) 04/16/24 16:45 Total Bilirubin 0.2 mg/dL (0.15-1.2) 04/16/24 16:45 AST 18 U/L (0-32) 04/16/24 16:45 ALT 21 U/L (0-33) 04/16/24 16:45 Alkaline Phosphatase 128 U/L (35-105) H 04/16/24 16:45 Troponin T Baseline 8 ng/L (0-10) 04/16/24 16:45 Troponin T 120 Minute 8.14 ng/L (0-10) 04/16/24 18:31 Delta Troponin T 0.14 ABS# (0-10) 04/16/24 18:31 Total Protein 6.2 g/dL (6.6-8.7) L 04/16/24 16:45 Albumin 4.2 g/dL (3.5-5.2) 04/16/24 16:45 Globulin 2.0 g/dL (1.3-4.6) 04/16/24 16:45 All radiology interpretation(s) finalized by discharge Discharge Plan Discharge Patient Disposition: Home Clinical Impression: Chest pain Qualifiers: Chest pain type: unspecified Qualified Code(s): R07.9 - Chest pain, unspecified Condition: Stable Prescriptions: No Action isosorbide mononitrate 30 mg tablet extended release 24 hr 15 mg PO DAILY Qty: 30 0RF Eliquis DVT-PE Treat 30D Start 5 mg (74 tabs) tablets,dose pack See Rx Instructions .ROUTE .COMPLEX Qty: 74 0RF Rx Instructions: orally per package directions estradiol 2 mg tablet 2 mg PO DAILY atorvastatin 40 mg tablet 40 mg PO QPM escitalopram oxalate 20 mg tablet 20 mg PO DAILY sucralfate 1 gram tablet 1 g PO QID PRN (Reason: Stomach Upset) albuterol sulfate 90 mcg/actuation aerosol powdr breath activated 1 inh inhalation QID PRN (Reason: wheezing) Qty: 1 0RF clopidogrel 75 mg Tablet 75 mg PO DAILY Qty: 90 3RF metoprolol tartrate 50 mg Tablet 50 mg PO BID Qty: 120 3RF pantoprazole 40 mg tablet,delayed release (DR/EC) 40 mg PO BID PRN Discharge Orders: Discharge ED (Routine); Ordered 04/16/24 Ordered By: Irish Acosta Referrals: Noe Johansen DO [Primary Care Provider] - Patient Instructions: Chest Pain (DC) Activity Restrictions/Additional Instructions: As we discussed, you need to return to the emergency department for further episodes of chest pain, constant/severe pain, shortness of breath, difficulty breathing, generally feeling worse or unwell, or any other concerns you may have. I would like you to follow-up with primary care and/or cardiology as soon as possible/next week for reevaluation. 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
[2024-04-16 16:48] VITALS: BP 150/85; PULSE 66; O2SAT 97
[2024-04-16 16:51] LABS: Basophils # 0.1 10^3/uL (0.0-0.1); Basophils % 0.5 %; Eosinophils # 0.5 10^3/uL (0.0-0.8); Eosinophils % 3.4 %; Hematocrit 42.2 % (36-47); Lymphocytes # 5.2 10^3/uL (0.8-4.8); Lymphocytes % 35.3 %; Mean Corpuscular HGB Conc 32.5 g/dL (30-55); Mean Corpuscular Hemoglobin 29.3 pg (27-33); Mean Corpuscular Volume 90.2 fl (85-98); Mean Platelet Volume 9.4 fL (7.4-10.4); Monocytes # 0.8 10^3/uL (0.2-0.9); Monocytes % 5.4 %; Neutrophils # 8.04 10^3/uL (1.8-7.7); Neutrophils % 55.1 %; Nucleated Red Blood Cells % 0 %; Platelet Count 373 10^3/cmm (157-399); Red Blood Count 4.68 10^6/uL (3.85-5.65); Red Cell Distribution Width 13.8 % (12.1-15.1); White Blood Count 14.61 10^3/uL (3.29-11.43)
[2024-04-16 17:12] LABS: Alanine Aminotransferase 21 U/L (0-33); Albumin Level 4.2 g/dL (3.5-5.2); Alkaline Phosphatase 128 U/L (35-105); Aspartate Amino Transferase 18 U/L (0-32); Blood Urea Nitrogen 18 mg/dL (8-23); Calcium 9.1 mg/dL (8.5-10.5); Carbon Dioxide 21 mmol/L (22-29); Chloride 104 mmol/L (98-107); Creatinine Clr Calc Pharmacy 84.1928; Glomerular Filtration Rate 85.1 mL/min (90-130); Glucose 139 mg/dL (65-115); Osmolality Calculated 288 mOsm/kg (285-295); Sodium 137 mmol/L (136-145); Total Bilirubin 0.2 mg/dL (0.15-1.2); Total Protein 6.2 g/dL (6.6-8.7); Troponin(5th) Baseline 8 ng/L (0-10)
[2024-04-16 18:04] VITALS: BP 137/89; PULSE 57; O2SAT 97
[2024-04-16 18:54] LABS: Troponin 5 2HR 8.14 ng/L (0-10); Troponin 5 2HR Delta 0.14 ABS# (0-10)
--- NOTE | 2024-04-16 19:02 | ECG_ITS ---
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 Measurements Intervals [place] Rate: 57 P: -1 VA: 157 QRS: 52 QRSD: 105 T: 45 QT: 440 QTc: 429 Interpretive Statements SINUS BRADYCARDIA INCOMPLETE RIGHT BUNDLE BRANCH BLOCK [90+ ms QRS DURATION, TERMINAL R IN V1/V2, 40+ ms S IN I/aVL/V4/V5/V6] Compared to ECG 04/16/2024 16:26:06 Sinus rhythm no longer present ST (T wave) deviation no longer present Electronically Signed On 04-18-2024 19:09:13 CLINICAL DOCUMENT IMPROVEMENT EDUCATOR by Clemente Guidry M.D. [email or web address]
[2024-04-16 19:07] VITALS: BP 161/120; PULSE 62; RESP 18; O2SAT 98
[2024-04-16 19:25] VITALS: BP 146/94; PULSE 55; RESP 16; O2SAT 98
== END 2024-04-16 19:25 | disposition home or self-care (01) ==
PROVIDERS: Emergency Provider Physician Assistant; PCP Electrodiagnostic Medicine
DX: R07.9 Chest pain, unspecified (principal); Z79.01 Long term (current) use of anticoagulants; Z79.02 Long term (current) use of antithrombotics/antiplatelets; Z87.891 Personal history of nicotine dependence; I25.10 Atherosclerotic heart disease of native coronary artery without angina pectoris; Z86.711 Personal history of pulmonary embolism
CPT/HCPCS: 36415; 71045; 80053; 84484; 85025; 93005; 99285

== ENCOUNTER 2024-04-27 08:03 | Outpatient (CLI) | payer OTHER, SELFPAY ==
--- NOTE | 2024-04-27 08:10 | MR_ITS ---
WS: [id number] MRI HEAD WITH CONTRAST TECHNIQUE: Sagittal T1, T2 axial, T2 axial FLAIR, axial susceptibility weighted imaging, axial diffus ion weighted images, and coronal T2 images were obtained. Pre and post-T1 axial and post T1 coronal i mages. ADC and FSPGR images. CLINICAL INFORMATION: CVA COMPARISON: None. FINDINGS: Some images degraded by motion. No evidence of restricted diffusion to suggest acute ischemia. Mild small vessel changes. Mild parenc hymal volume loss. Small vessel changes in the annie. Normal posterior fossa. Normal vascular flow voi ds at the skull base. No extra-axial fluid collections. No evidence of mass or mass effect. Small ajay unt of fluid in the maxillary sinuses. Mild mucosal thickening in the ethmoid air cells and RIGHT fro ntal sinus. Fluid in the RIGHT mastoid tip. Fluid in the sphenoid sinus. Normal optic chiasm and pituitary infundibulum. No abnormal gadolinium enhancement. Temporal lobes an d hippocampal formations are normal in appearance. MR/MR head wo/w con [id number] IMPRESSION: 1. No evidence of restricted diffusion to suggest acute ischemia. 2. Mild small vessel changes. Mild parenchymal volume loss. Small vessel christine es in the annie. 3. No hemosiderin on susceptibility-weighted images. 4. No abnormal gadolinium enhancement. 5. Mild paranasal sinusitis.
[2024-04-27] MEDS: gadobenate dimeglumine 20 mL vial 17 ML IV (08:24)
== END 2024-04-27 08:04 | disposition home or self-care (01) ==
PROVIDERS: PCP Electrodiagnostic Medicine; Visit Provider Electrodiagnostic Medicine
DX: I63.9 Cerebral infarction, unspecified (principal)
CPT/HCPCS: 70553

== ENCOUNTER 2024-08-18 07:51 | Outpatient (CLI) | payer SELFPAY ==
--- NOTE | 2024-08-18 07:58 | USCV_ITS ---
Humaira Huston Age: 64 Gender: F : 1960 Exam Date: 08/18/2024 08:08 Ordering Phys: Noe Johansen DO Technologist: Exam Location: [facility] [place] Indication: cva tia Risk Factors: Previous Vascular Surgery: Right Brachial BP: / Left Brachial BP: / Right Left Velocity (cm/s) Spectral Plaque Velocity (cm/s) Spectral Plaque Syst/Diast Broadening Syst/Diast Broadening 73.70/ 21.90 Prox CCA 55.00 / 12.10 69.80/ 24.50 Mid CCA 46.80 / 16.20 50.40/ 20.60 Hetro Distal CCA 44.80 / 18.30 Hetro 42.60/ 15.40 Prox ICA 37.10 / 18.00 67.20/ 29.70 Mid ICA 51.60 / 23.80 62.20/ 28.50 Distal ICA 47.50 / 21.70 108.70 ECA 37.10 1.30 ICA/CCA 1.20 Antegrade Vertebral Antegrade 51.90/ 15.20 cm/s 35.60/ 12.80 cm/s Bi Subclavian Tri 65.20 64.00 FINDINGS Comparison: none available. No significant elevation of systolic or diastolic velocities. Waveforms are normal. Mild bilateral scattered calcified plaque and intimal thickening throughout the common carotid arteries and extending through the bifurcation. CONCLUSIONS Bilateral ICA stenosis less than 50%. Dr. Joanie Garcia DO (Electronically Signed) Final Date: 18 August 2024 15:53 S
== END 2024-08-18 07:52 | disposition home or self-care (01) ==
PROVIDERS: PCP Electrodiagnostic Medicine; Visit Provider Electrodiagnostic Medicine
DX: I25.2 Old myocardial infarction (principal); I65.23 Occlusion and stenosis of bilateral carotid arteries
CPT/HCPCS: 93880

== ENCOUNTER 2024-09-14 17:34 | Observation (INO) | payer SELFPAY ==
[2024-09-14] VITALS (9 sets, daily range): BP systolic 132–174; BP diastolic 76–99; PULSE 72–93; RESP 16–18; TEMP 36.4–36.7; O2SAT 93–98; BMI 33.6
--- NOTE | 2024-09-14 17:44 | ECG_ITS ---
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 Measurements Intervals [place] Rate: 88 P: 60 MA: 169 QRS: 57 QRSD: 105 T: 58 QT: 385 QTc: 467 Interpretive Statements SINUS RHYTHM POSSIBLE LEFT ATRIAL ENLARGEMENT [-0.1mV P-WAVE IN V1/V2] INCOMPLETE RIGHT BUNDLE BRANCH BLOCK [90+ ms QRS DURATION, TERMINAL R IN V1/V2, 40+ ms S IN I/aVL/V4/V5/V6] MODERATE ST DEPRESSION [0.05+ mV ST DEPRESSION] Compared to ECG 04/16/2024 19:02:54 ST (T wave) deviation now present Sinus bradycardia no longer present Electronically Signed On 09-20-2024 10:17:34 CDT by Clemente Guidry M.D. [email or web address]
--- NOTE | 2024-09-14 17:44 | XRR_ITS ---
PROCEDURE INFORMATION: Exam: XR Chest Exam date and time: 09/14/2024 5:57 PM Age: 64 years old Clinical indication: Pain; Chest pressure; Prior surgery; Surgery date: 6+ months; Surgery type: Cardiac stents; Additional info: Chest pain TECHNIQUE: Imaging protocol: Radiologic exam of the chest. Views: 1 view. COMPARISON: CR XR chest 1V portable [id number] 04/16/2024 5:10 PM FINDINGS: Lungs: Unremarkable. No consolidation. Pleural spaces: Unremarkable. No pleural effusion. No pneumothorax. Heart/Mediastinum: Heart size is stable. Bones/joints: Unremarkable. XR/XR chest 1V portable [id number] IMPRESSION: No acute cardiopulmonary findings.
--- NOTE | 2024-09-14 17:46 | ED_ITS ---
HPI - Chest Pain 2 General: Chief Complaint: Chest Pain Stated Complaint: CP/SOB Time Seen by Provider: 09/14/24 17:44 History of Present Illness: 64-year-old female with a history of cor onary artery disease status post stents, she says on the same admission she had a heart attack she also developed pulmonary emboli and is now on Eliquis who presents today to the emergency room by ambulance with chest pain. This started about an hour prior to arrival. It is improving. She checked her blood pressure and it was elevated for her in the 180 systolic. When I see her she has mild pain which is improving. She has not taken anything. No cough. No fevers. Says it might even be related to her eating some pizza. She also says that she has been seeing her front desk coordinator and they are trying to get a stress test scheduled. Related Data Home Medications ?Medication ?Instructions ?Recorded ?Confirmed escitalopram oxalate 20 mg tablet 20 mg PO DAILY 01/1708/24/24 sucralfate 1 gram tablet 1 g PO QID PRN Stomach Upset 01/18/24 08/24/24 pantoprazole 40 mg tablet,delayed 40 mg PO BID PRN 08/24/24 release atorvastatin 40 mg tablet 80 mg PO QPM 06/24/24 estradiol 2 mg tablet 2 mg PO DAILY 08/24/2408/24 Previous Rx's ?Medication ?Instructions ?Recorded albuterol sulfate 90 mcg/actuation 1 inh inhalation QI D PRN wheezing 01/19/24 breath activated powder inhaler #1 ea clopidogrel 75 mg tablet 75 mg PO DAILY #90 tabs 07/12 apixaban 5 mg (74 tabs) tablets in See Rx Instructions PO .COMPLEX 01/20/24 a dose pack (Eliquis DVT-PE Treat #74 ea 30D Start) isosorbide mononitrate 30 mg 15 mg (1/2 x 30 mg) PO DA HARIKA #30 01/27/24 tablet,extended release 24 hr tabs metoprolol succinate 25 mg 25 mg PO DAILY #90 tabs 11/10 tablet,extended release 24 hr Allergies Allergy/AdvReac Type Severity Reaction Status Date / Time No Known Allergies Allergy Verified 08/24/24 15:10 Review of Systems 2 Narrative: Constitutional symptoms: Negative except as documented in HPI. Skin symptoms: Negative except as documented in HPI. Eye symptoms: Negative except as documented in HPI. ENMT symptoms: Negative except as documented in HPI. Respiratory symptoms: Negative except as documented in HPI. Cardiovascular symptoms: Negative except as documented in HPI. Gastrointestinal symptoms: Negative except as documented in HPI. Genitourinary symptoms: Negative except as documented in HPI. Musculoskeletal symptoms: Negative except as documented in HPI. Neurologic symptoms: Negative except as documented in HPI. Psychiatric symptoms: Negative except as documented in HPI. Endocrine symptoms: Negative except as documented in HPI. PFSH ED 2 PFSH: Medical History History of pulmonary embolism Community acquired pneumonia CAD (coronary artery disease) Social History Smoking and tobacco/nicotine status: former use of tobacco/nicotine Alcohol intake: current Marital status: Physical Exam 2 Narrative: EXAM NARRATIVE: General: Alert, no acute distress. Skin: Warm, dry. Head: Normocephalic, atraumatic. Neck: Supple, trachea midline. Eye: Extraocular movements are intact. Ears, nose, mouth and throat: mucosa moist. Cardiovascular: Regular, Normal peripheral perfusion. Respiratory: Lungs are clear to auscultation, respirations are non-labored, breath sounds are equal, Symmetrical chest wall expansion. Gastrointestinal: Soft, Nontender, Non distended Musculoskeletal: Normal ROM, no deformity. Neurological: Alert and oriented, No focal neurological deficit observed. Psychiatric: Cooperative, appropriate mood & affect. Course 2 Vital Signs: Vital signs: Vital Signs Temperature 97.9 F 09/14/24 17:44 Pulse Rate 81 09/14/24 20:19 Respiratory Rate 16 09/14/24 20:19 Blood Pressure 148/81 09/14/24 20:19 Pulse Oximetry 98 09/14/24 20:19 Oxygen Delivery Me thod Room Air 09/14/24 20:19 MDM - Chest Pain Medical Decision Making Differential diagnosis for patient with chest pain includes but is not limited to and based on the above HPI, review of systems and physical exam: Pneumonia. unstable angina. angina. Acute coronary syndrome / [place]. Pulmonary embolism. Costochondritis / musculoskeletal. Pleurisy. Pericarditis. Esophageal spasm. Pancreatis. Cholecystitis. Orders placed to evaluate differential diagnosis based on the above differential, HPI and physical exam EKG: Time 1737. Rate 88. Normal sinus rhythm, some fairly significant ST depressions. This is unchanged from EKG taken previously., no ectopy, normal [place] & QRS intervals, This was reviewed and interpreted by myself the ER physician at 1740. Repeat EKG: Time 1834. Rate 75.. Normal sinus rhythm, some fairly significant ST depressions., no ectopy, normal [place] & QRS intervals, This was reviewed and interpreted by myself the ER physician at 1940. No significant changes from EKG done previously today in the emergency room. Chest x-ray: No acute process. No infiltrate. No pneumothorax. This was reviewed and interpreted by myself the emergency room physician. I also reviewed the radiology report. Lab Review: Laboratory results were reviewed and interpreted by myself the emergency room physician. Patient does have mild leukocytosis with a white count of 16,000. No anemia. No renal failure. Initial troponin is 12 and repeat is 9. proBNP is negative. I reviewed the patient's medical record. HEART Pathway for Early Discharge in Acute Chest Pain from [email or web address] on 09/14/2024 All calculations should be rechecked by clinician prior to use RESULT SUMMARY: 6 points HEART Pathway Score High risk 12-65% 30-day MACE Admit to hospital or observation. Further testing indicated. INPUTS: History ?> 2 = Highly suspicious EKG ?> 1 = Non-specific repolarization disturbance Age ?> 1 = 45-64 Risk factors ?> 2 = >= risk factors or history of atherosclerotic disease Initial troponin ?> 0 = <=ormal limit Reexamination: Patient is now chest pain-free. Patient remained stable. No increased work of breathing. No altered mental status. No focal motor deficits. Consultation: Spoke with Dr. Arellano who is on-call for the hospital service who agrees to admission to observation. Assessment and plan: Chest pain Coronary artery disease Aspirin in the emergency room. -I discussed the patient with the hospitalist on-call who is admitting the patient. - Discussed findings and plan with patient. Answered any questions. - All laboratory values were reviewed and interpreted personally by myself, the ER physician - All imaging was reviewed and interpreted personally by myself, the ER physician. - Evaluation and treatment of this problem were appropriate in the emergency setting Lab Data 09/14/24 17:47 09/14/24 17:47 Radiology Impressions Chest X-Ray 09/14/24 17:44 IMPRESSION: No acute cardiopulmonary findings. Laboratory Results WBC 16.13 10^3/uL (3.29-11.43) H 09/14/24 17:47 RBC 4.47 10^6/uL (3.85-5.65) 09/14/24 17:47 Hgb 13.50 g/dL (11.27-16.99) 09/14/24 17:47 Hct 39.7 % (36-47) 09/14/24 17:47 MCV 88.8 fl (85-98) 09/14/24 17:47 MCH 30.2 pg (27-33) 09/14/24 17:47 MCHC 34.0 g/dL (30-55) 09/14/24 17:47 RDW 13.5 % (12.1-15.1) 09/14/24 17:47 Plt Count 402 10^3/cmm (157-399) H 09/14/24 17:47 MPV 9.4 fL (7.4-10.4) 09/14/24 17:47 Neut % (Auto) 57.6 % 09/14/24 17:47 Lymph % (Auto) 34.7 % 09/14/24 17:47 [place] % (Auto) 5.9 % 09/14/24 17:47 Eos % (Auto) 1.2 % 09/14/24 17:47 Baso % (Auto) 0.2 % 09/14/24 17:47 Neut # (Auto) 9.29 10^3/uL (1.8-7.7) H 09/14/24 17:47 Lymph # (Auto) 5.6 10^3/uL (0.8-4.8) H 09/14/24 17:47 [place] # (Auto) 1.0 10^3/uL (0.2-0.9) H 09/14/24 17:47 Eos # (Auto) 0.2 10^3/uL (0.0-0.8) 09/14/24 17:47 Baso # (Auto) 0.0 10^3/uL (0.0-0.1) 09/14/24 17:47 Nucleated RBC % (auto) 0 % 09/14/24 17:47 Nucleated RBCs # 0.0 /100WBC 09/14/24 17:47 Sodium 138 mmol/L (136-145) 09/14/24 17:47 Potassium 3.8 mmol/L (3.5-5.1) 09/14/24 17:47 Chloride 103 mmol/L (98-107) 09/14/24 17:47 Carbon Dioxide 21 mmol/L (22-29) L 09/14/24 17:47 Anion Gap 17.8 (5-19) 09/14/24 17:47 BUN 18 mg/dL (8-23) 09/14/24 17:47 Creatinine 0.6 mg/dL (0.5-0.9) 09/14/24 17:47 GFR Calculation 101.3 mL/min (90-130) 09/14/24 17:47 Glucose 144 mg/dL (65-115) H 09/14/24 17:47 Calculated Osmolality 290 mOsm/kg (285-295) 09/14/24 17:47 Calcium 9.9 mg/dL (8.5-10.5) 09/14/24 17:47 Total Bilirubin 0.2 mg/dL (0.15-1.2) 09/14/24 17:47 AST 15 U/L (0-32) 09/14/24 17:47 ALT 16 U/L (0-33) 09/14/24 17:47 Alkaline Phosphatase 116 U/L (35-105) H 09/14/24 17:47 Troponin T Baseline 12 ng/L (0-10) H 09/14/24 17:47 Troponin T 120 Minute 9.21 ng/L (0-10) 09/14/24 19:25 Delta Troponin T -2.79 ABS# (0-10) L 09/14/24 19:25 NT-Pro-B Natriuret Pep < 36 pg/mL (0-125) 09/14/24 17:47 Total Protein 6.9 g/dL (6.6-8.7) 09/14/24 17:47 Albumin 4.4 g/dL (3.5-5.2) 09/14/24 17:47 Globulin 2.5 g/dL (1.3-4.6) 09/14/24 17:47 All radiology interpretation(s) finalized by discharge Clincial Decision Support The following clinical decision support tools were used to aid in care of the patient HEART Score -> History: Highly Suspicious, EKG: Non-specific Changes, Age: 45-64 yrs, Risk Factors: >/=3 Risk Factors, Troponin: Baseline Trop <16 ng/L. Resulting HEART Score: 6. 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
[2024-09-14 17:52] LABS: Basophils % 0.2 %; Eosinophils # 0.2 10^3/uL (0.0-0.8); Eosinophils % 1.2 %; Hematocrit 39.7 % (36-47); Lymphocytes # 5.6 10^3/uL (0.8-4.8); Lymphocytes % 34.7 %; Mean Corpuscular Hemoglobin 30.2 pg (27-33); Mean Corpuscular Volume 88.8 fl (85-98); Mean Platelet Volume 9.4 fL (7.4-10.4); Monocytes % 5.9 %; Neutrophils # 9.29 10^3/uL (1.8-7.7); Neutrophils % 57.6 %; Nucleated Red Blood Cells % 0 %; Platelet Count 402 10^3/cmm (157-399); Red Blood Count 4.47 10^6/uL (3.85-5.65); Red Cell Distribution Width 13.5 % (12.1-15.1); White Blood Count 16.13 10^3/uL (3.29-11.43)
[2024-09-14 18:17] LABS: Troponin(5th) Baseline 12 ng/L (0-10)
[2024-09-14] MEDS: aspirin 81 mg Chew Tablet 324 MG PO (18:21)
[2024-09-14 18:24] LABS: Alanine Aminotransferase 16 U/L (0-33); Albumin Level 4.4 g/dL (3.5-5.2); Alkaline Phosphatase 116 U/L (35-105); Anion Gap 17.8 (5-19); Aspartate Amino Transferase 15 U/L (0-32); Blood Urea Nitrogen 18 mg/dL (8-23); Calcium 9.9 mg/dL (8.5-10.5); Carbon Dioxide 21 mmol/L (22-29); Chloride 103 mmol/L (98-107); Creatinine Clr Calc Pharmacy 101.1585; Globulin 2.5 g/dL (1.3-4.6); Glomerular Filtration Rate 101.3 mL/min (90-130); Glucose 144 mg/dL (65-115); NT Pro B Type Natriuretic Pept < 36 pg/mL (0-125); Osmolality Calculated 290 mOsm/kg (285-295); Potassium 3.8 mmol/L (3.5-5.1); Sodium 138 mmol/L (136-145); Total Bilirubin 0.2 mg/dL (0.15-1.2); Total Protein 6.9 g/dL (6.6-8.7)
[2024-09-14 18:28] LABS: Slide Review Slide Review Perform
--- NOTE | 2024-09-14 19:34 | ECG_ITS ---
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 Measurements Intervals [place] Rate: 75 P: 42 NH: 178 QRS: 20 QRSD: 109 T: 40 QT: 403 QTc: 451 Interpretive Statements SINUS RHYTHM INCOMPLETE RIGHT BUNDLE BRANCH BLOCK [90+ ms QRS DURATION, TERMINAL R IN V1/V2, 40+ ms S IN I/aVL/V4/V5/V6] Compared to ECG 09/14/2024 17:37:06 ST (T wave) deviation no longer present Electronically Signed On 09-20-2024 10:40:34 CDT by Clemente Guidry M.D. [id number]
[2024-09-14 19:55] LABS: Troponin 5 2HR 9.21 ng/L (0-10)
[2024-09-14 19:57] LABS: Troponin 5 2HR Delta -2.79 ABS# (0-10)
--- NOTE | 2024-09-14 22:07 | P.HP_ITS ---
Providers/Chief Complaint 2 Admitting Physician: Chapincito Arellano MD Primary Care Provider: Noe Johansen DO Chief Complaint: CP/SOB History of Present Illness Humaira Urbina is a 64 year old female with coronary artery disease as well as biliary obstruction and pancreatic stents in place comes in with atypical chest pain she has a heart score of 7 with EKG showing chronic depressions unchanged troponin normal hypertension elevated at home mild here and recommended for admission. Cardiac history includes January 17, 2024 she had acute STEMI and required 2 stents to the LAD and 2 stents to the RCA by Dr. Guidry. 2 days after that she had been seen here and had PE started on anticoagulation. Subsequent to that she had pancreatitis with biliary obstruction was in the [facility] for 5 days awaiting a bed finally went to [facility] and had 2 pancreatic stents. She then lost her insurance and those stents are still in place she says she has 5 stones that need to have lithotripsy but has not occurred. 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 Sounds like she had a sphincterotomy as well. Patient is in contact with her GI specialist and intends to go back up after October when she gets her insurance. Patient stopped smoking for 2 to 3 months following her stents but started smoking again now at half pack per day. She is agreeable to a nicotine patch she states that stopping is really hard when she smokes out of habit but does not really even enjoy smoking. I spoke with her for about 5 minutes regarding smoking cessation and getting on nicotine patch then weaning off cigarettes and nicotine completely. Nicotine is still cardiovascular problem even with not smoked. Review of Systems 2 Narrative: General No fevers chills send 30 pounds weight gain since her PR Cardiovascular she did not have chest pain in previous days but yesterday ate pizza then had epigastric and substernal pain without nausea or vomiting. Respiratory no shortness of breath or wheezing but she has chronic cough productive of clear phlegm GI she has had some heartburn she also has slowed bowels with her pancreatic disease now having bowel movements every 2 to 3 days instead of daily which occurred immediately following her stent. She feels like her stent is failing. negative Neuro negative malignancy negative Heme she had a PE following her PR Medications/Allergies Home Medications ?Medication ?Instructions ?Recorded ?Confirmed ?Last Taken ?Type escitalopram oxalate 20 mg tablet 20 mg PO DAILY 01/1708/24/24 01/29/24 History sucralfate 1 gram tablet 1 g PO QID PRN Stomach Upset 01/18/24 08/24/24 Unknown History albuterol sulfate 90 mcg/actuation 1 inh inhalation QI D PRN wheezing 01/19/24 08/24/24 Unknown Rx breath activated powder inhaler #1 ea clopidogrel 75 mg tablet 75 mg PO DAILY #90 tabs 07/1208/24/24 01/29/24 Rx apixaban 5 mg (74 tabs) tablets in See Rx Instructions PO .COMPLEX 01/20/24 08/24/24 01/29/24 Rx a dose pack (EliquKibin DVT-PE Treat #74 ea 30D Start) isosorbide mononitrate 30 mg 15 mg (1/2 x 30 mg) PO DA HARIKA #30 01/27/24 08/24/24 01/29/24 Rx tablet,extended release 24 hr tabs pantoprazole 40 mg tablet,delayed 40 mg PO BID PRN 08/24/24 Unknown History release atorvastatin 40 mg tablet 80 mg PO QPM 06/24/24 Unknown History metoprolol succinate 25 mg 25 mg PO DAILY #90 tabs 11/1008/24/24 Unknown Rx tablet,extended release 24 hr estradiol 2 mg tablet 2 mg PO DAILY 08/24/2408/24 Unknown History Allergies Allergy/AdvReac Type Severity Reaction Status Date / Time No Known Allergies Allergy Verified 08/24/24 15:10 PFSH Acute 2 PFSH: Medical History Pancreatitis due to biliary obstruction History of pulmonary embolism Community acquired pneumonia CAD (coronary artery disease) Surgical History (Updated 09/14/24 @ 22:13 by Chapincito Arellano MD) H/O rotator cuff surgery Social History (Updated 09/14/24 @ 22:13 by Chapincito Arellano MD) Smoking and tobacco/nicotine status: former use of tobacco/nicotine Alcohol intake: current Additional social history: Wants full code discussed with patient 09/14/2024 Marital status: Vitals/I&O/Wt Last Vital Signs Temp 97.9 F 09/14/24 17:44 Pulse 89 09/14/24 22:04 Resp 16 09/14/24 22:04 BP 132/98 09/14/24 22:04 Pulse Ox 97 09/14/24 22:04 O2 Del Method Room Air 09/14/24 20:19 Weight last 48 hrs Weight 86.183 kg Physical Exam 2 Narrative: General well-developed well-nourished obese female in no acute cardiopulmonary stress CV regular rate and rhythm Lungs clear to auscultation bilaterally Abdomen positive bowel sounds soft there is midepigastric and right upper quadrant tenderness Calves no tenderness to pretrip edema Neuro alert and oriented x 3 Skin is warm and dry Data 09/14/24 17:47 09/14/24 17:47 A&P Assessment and plan (1) Chest pain: Troponins thus far negative as additional test. Her chest pain is atypical and suspicious for biliary obstruction. Will check lipase (2) History of CAD (coronary artery disease): As above 2 drug-eluting stents in the LAD and 2 in the RCA. EKG is reassuring as are the troponins. (3) History of pulmonary embolism: Continue with anticoagulation with Eliquis PDMP PDMP Reviewed: Not Reviewed Attestations 2 Medical Necessity Statement*: Patient admitted to the hospital for lipase and troponin monitoring overnight. Clear liquid diet for now. Consider imaging especially if the lipase is elevated Coding Level of Care Code 32343 Diagnoses Chest pain R07.9 History of CAD (coronary artery disease) Z86.79 History of pulmonary embolism Z86.711 Time Spent (min) 70
[2024-09-14 22:14] LABS: Lipase 22 U/L (13-60)
--- NOTE | 2024-09-14 23:44 | ECG_ITS ---
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 Measurements Intervals [place] Rate: 73 P: 45 [place]: 184 QRS: 24 QRSD: 109 T: 29 QT: 423 QTc: 468 Interpretive Statements SINUS RHYTHM INCOMPLETE RIGHT BUNDLE BRANCH BLOCK [90+ ms QRS DURATION, TERMINAL R IN V1/V2, 40+ ms S IN I/aVL/V4/V5/V6] Compared to ECG 09/14/2024 19:34:24 No significant changes Electronically Signed On 09-20-2024 10:40:21 CDT by Clemente Guidry M.D. [id number] [id number]
[2024-09-15 00:25] LABS: Troponin 5 6HR 9.95 ng/L (0-10)
[2024-09-15 00:34] LABS: Troponin 5 6HR Delta -2.05 ng/L (0-12)
[2024-09-15 06:00] VITALS: BP 172/78; PULSE 67; PULSE 80; RESP 19; TEMP 36.4; O2SAT 93
[2024-09-15 06:03] LABS: Basophils % 0.3 %; Eosinophils # 0.2 10^3/uL (0.0-0.8); Eosinophils % 1.6 %; Hematocrit 41.1 % (36-47); Lymphocytes # 4.1 10^3/uL (0.8-4.8); Lymphocytes % 34.9 %; Mean Corpuscular HGB Conc 32.8 g/dL (30-55); Mean Corpuscular Hemoglobin 29.7 pg (27-33); Mean Corpuscular Volume 90.3 fl (85-98); Mean Platelet Volume 9.3 fL (7.4-10.4); Monocytes # 0.8 10^3/uL (0.2-0.9); Neutrophils # 6.55 10^3/uL (1.8-7.7); Neutrophils % 55.8 %; Nucleated Red Blood Cells % 0 %; Platelet Count 390 10^3/cmm (157-399); Red Blood Count 4.55 10^6/uL (3.85-5.65); Red Cell Distribution Width 13.6 % (12.1-15.1); White Blood Count 11.75 10^3/uL (3.29-11.43)
[2024-09-15 06:19] LABS: Slide Review Slide Review Perform
[2024-09-15 06:23] LABS: Troponin T (5th) Once 10 ng/L (0-10)
[2024-09-15 06:47] LABS: Alanine Aminotransferase 15 U/L (0-33); Alkaline Phosphatase 117 U/L (35-105); Anion Gap 14.9 (5-19); Aspartate Amino Transferase 15 U/L (0-32); Blood Urea Nitrogen 14 mg/dL (8-23); Carbon Dioxide 23 mmol/L (22-29); Chloride 106 mmol/L (98-107); Creatinine Clr Calc Pharmacy 101.2628; Globulin 2.4 g/dL (1.3-4.6); Glomerular Filtration Rate 101.3 mL/min (90-130); Glucose 116 mg/dL (65-115); Osmolality Calculated 291 mOsm/kg (285-295); Potassium 3.9 mmol/L (3.5-5.1); Sodium 140 mmol/L (136-145); Total Bilirubin 0.2 mg/dL (0.15-1.2); Total Protein 6.4 g/dL (6.6-8.7)
[2024-09-15 07:48] VITALS: BP 145/72; PULSE 69; RESP 19; TEMP 36.5; O2SAT 97
[2024-09-15] MEDS: nicotine 14 mg Patch 1 PATCH TRANSDERMA (08:14)
[2024-09-15] MEDS: escitalopram 10 mg Tablet 20 MG PO (08:14)
[2024-09-15] MEDS: estradiol 1 mg Tablet 2 MG PO (08:14)
[2024-09-15] MEDS: pantoprazole DR 40 mg Tablet PO (08:15)
[2024-09-15] MEDS: metoprolol succinate ER (24 HR) 25 mg Tablet PO (08:15)
[2024-09-15] MEDS: isosorbide mononitrate ER 30 mg Tablet 15 MG PO (08:15)
[2024-09-15] MEDS: clopidogrel 75 mg Tablet PO (08:15)
[2024-09-15] MEDS: apixaban 5 mg Tablet PO (08:16)
[2024-09-15 11:26] VITALS: PULSE 66; RESP 16; O2SAT 97
[2024-09-15 12:01] VITALS: BP 108/65; PULSE 74; RESP 20; TEMP 36.4; O2SAT 95
--- NOTE | 2024-09-15 13:54 | CT_ITS ---
WS: [id number] CT ABDOMEN WITH CONTRAST HISTORY: assess for pancreatitis Contiguous single phase 5 mm axial imaging performed to the abdomen. Oral contrast has not been provided. Coronal and sagittal reformats are submitted. All CT scans at [facility] use at least one of these dose optimization techniques: automated exposure control; mA and/or kV adjustment per patient size (includes targeted exams where dose is matched to clinical indication); or iterative reconstruction. IV CONTRAST: Omnipaque 350; 100 mL IV. Oral contrast: No DLP: 560.15 mGy.cm COMPARISON: 02/02/2024 Lower thorax: Lung bases are clear. Heart is normal size. No hiatal hernia. Liver/biliary system: Normal size with no intrahepatic dilatation. Gallbladder: Contracted. Pancreas: Atrophic pancreas. There are numerous calcifications along the pancreatic duct. There is also pancreatic stent extending into the duodenum. There is no dilatation of the pancreatic duct. No acute inflammation surrounding the pancreas. Spleen: Normal size spleen. No mass or infarct. Adrenal glands: Normal. Right kidney: Normal. Left kidney: Normal. Aorta: Mild atherosclerosis with no aneurysm. Lymphadenopathy: None. Free fluid: None. GI tract: As visualized within the abdomen unremarkable. No obstruction. Abdominal wall: Unremarkable abdominal wall. No hernia. Visualized osseous structures: Unremarkable. CT/CT abdomen w con* [id number] IMPRESSION: 1. Pancreatic stent in good position. Complete resolution of the previously de scribed cystic masses/pseudocysts within the pancreas and resolution of the leyva creatic duct dilatation since 02/02/2024. 2. No evidence for acute pancreatitis. No pseudocyst. 3. Chronic pancreatitis. Numerous calcifications along the pancreatic duct. 4. Slightly contracted gallbladder. 5. No ascites.
[2024-09-15] MEDS: iohexol 350 mg/mL 500 mL Btl (per mL) IV (14:09)
[2024-09-15 15:01] VITALS: BP 112/72; PULSE 68; RESP 18; TEMP 36.7; O2SAT 98
--- NOTE | 2024-09-15 15:34 | PC.NURSE ---
Discharge Note Patient discharged to home via private vehicle accompanied by family member. Discharge instructions reviewed with patient and/or patient care representative. Mobile pharmacy medications and/or prescriptions provided. Belongings/home medications returned.
[2024-09-15 16:22] VITALS: BP 112/72; PULSE 68; RESP 18; TEMP 36.7; O2SAT 98
--- NOTE | 2024-09-15 17:14 | P.DS_ITS ---
Discharge Providers Date of Admission: 09/14/24 21:07 Date of Discharge: September 15, 2024 Attending Provider at Admission: Chapincito Arellano MD Attending Provider at Discharge: Nat Hutchins MD Primary Care Provider: Noe Johansen DO Diagnoses at Discharge Discharge Diagnosis (1) Chest pain: Status: Acute (2) History of CAD (coronary artery disease): Status: Acute (3) History of pulmonary embolism: Status: Acute Reason for Visit Reason for Visit: CP/SOB Hospital Course Hospital Course 64 year old female with coronary artery disease as well as biliary obstruction and pancreatic stents in place comes in with atypical chest pain. She reported that her pain was triggered by eating fatty foods. Overnight she had and then again after this morning she noticed the chest discomfort. She described it exacerbated in the epigastric region radiating up to the chest. EKG and troponin series were not concerning for ACS. Patient is chronically on Eliquis therefore PE was considered less likely. CT of the abdomen and pelvis was performed which did not show any dissection. Additionally no evidence of pancreatitis was noted on CT. Lipase was normal. Her previously placed pancreatic stents appeared to be patent. Pseudocyst had resolved. Patient denied any further chest pain later in the day and noted a clear association with food. Suspect may be related to gastritis. Protonix 40 mg p.o. twice daily was added to her regimen. Offered the patient option to undergo a cardiac stress test to rule out angina however patient indicated she would prefer to complete this as an outpatient And follow-up with cardiology. She has an appointment upcoming with gastroenterology in [place] in October of this year. Since patient is otherwise clinically stable and feeling better, she was discharged home. She feels well at the time of discharge. Physical Exam Narrative: General: No acute distress, AO x3 HEENT: PERRLA, pupils bilaterally equal and reactive, pallors not present Chest: Normal vesicular breath sounds, no added sounds, equal good air entry bilaterally CVS: S1-S2 regular, no murmurs, no tachycardia, no gallops, no rubs Abdomen: Soft, nontender, no organomegaly, bowel sounds present Neuro: No focal deficits, no facial deformity, AO x3, power 5/5 in all limbs Discharge Data Studies Completed and Pending Completed Studies During Hospitalization Category Date Time Status CT abdomen w con* [id number] Routine Cat Scan 09/15/24 13:54 Completed XR chest 1V portable [id number] Stat Exams 09/14/24 17:44 Completed Radiology Impressions Chest X-Ray 09/14/24 17:44 IMPRESSION: No acute cardiopulmonary findings. Abdomen CT 09/15/24 13:54 IMPRESSION: 1. Pancreatic stent in good position. Complete resolution of the previously described cystic masses/pseudocysts within the pancreas and resolution of the pancreatic duct dilatation since 02/02/2024. 2. No evidence for acute pancreatitis. No pseudocyst. 3. Chronic pancreatitis. Numerous calcifications along the pancreatic duct. 4. Slightly contracted gallbladder. 5. No ascites. Laboratory Results WBC 11.75 10^3/uL (3.29-11.43) H 09/15/24 05:56 RBC 4.55 10^6/uL (3.85-5.65) 09/15/24 05:56 Hgb 13.50 g/dL (11.27-16.99) 09/15/24 05:56 Hct 41.1 % (36-47) 09/15/24 05:56 MCV 90.3 fl (85-98) 09/15/24 05:56 MCH 29.7 pg (27-33) 09/15/24 05:56 MCHC 32.8 g/dL (30-55) 09/15/24 05:56 RDW 13.6 % (12.1-15.1) 09/15/24 05:56 Plt Count 390 10^3/cmm (157-399) 09/15/24 05:56 MPV 9.3 fL (7.4-10.4) 09/15/24 05:56 Neut % (Auto) 55.8 % 09/15/24 05:56 Lymph % (Auto) 34.9 % 09/15/24 05:56 [place] % (Auto) 7.0 % 09/15/24 05:56 Eos % (Auto) 1.6 % 09/15/24 05:56 Baso % (Auto) 0.3 % 09/15/24 05:56 Neut # (Auto) 6.55 10^3/uL (1.8-7.7) 09/15/24 05:56 Lymph # (Auto) 4.1 10^3/uL (0.8-4.8) 09/15/24 05:56 [place] # (Auto) 0.8 10^3/uL (0.2-0.9) 09/15/24 05:56 Eos # (Auto) 0.2 10^3/uL (0.0-0.8) 09/15/24 05:56 Baso # (Auto) 0.0 10^3/uL (0.0-0.1) 09/15/24 05:56 Nucleated RBC % (auto) 0 % 09/15/24 05:56 Nucleated RBCs # 0.0 /100WBC 09/15/24 05:56 Sodium 140 mmol/L (136-145) 09/15/24 05:56 Potassium 3.9 mmol/L (3.5-5.1) 09/15/24 05:56 Chloride 106 mmol/L (98-107) 09/15/24 05:56 Carbon Dioxide 23 mmol/L (22-29) 09/15/24 05:56 Anion Gap 14.9 (5-19) 09/15/24 05:56 BUN 14 mg/dL (8-23) 09/15/24 05:56 Creatinine 0.6 mg/dL (0.5-0.9) 09/15/24 05:56 GFR Calculation 101.3 mL/min (90-130) 09/15/24 05:56 Glucose 116 mg/dL (65-115) H 09/15/24 05:56 Calculated Osmolality 291 mOsm/kg (285-295) 09/15/24 05:56 Calcium 9.0 mg/dL (8.5-10.5) 09/15/24 05:56 Total Bilirubin 0.2 mg/dL (0.15-1.2) 09/15/24 05:56 AST 15 U/L (0-32) 09/15/24 05:56 ALT 15 U/L (0-33) 09/15/24 05:56 Alkaline Phosphatase 117 U/L (35-105) H 09/15/24 05:56 Troponin T 5th Gen ng/L 10 ng/L (0-10) 09/15/24 05:56 Troponin T Baseline 12 ng/L (0-10) H 09/14/24 17:47 Troponin T 120 Minute 9.21 ng/L (0-10) 09/14/24 19:25 Delta Troponin T -2.79 ABS# (0-10) L 09/14/24 19:25 Troponin T Hi Sens 6Hr 9.95 ng/L (0-10) 09/14/24 23:55 Troponin T Hi Sens 6Hr Delta -2.05 ng/L (0-12) L 09/14/24 23:55 NT-Pro-B Natriuret Pep < 36 pg/mL (0-125) 09/14/24 17:47 Total Protein 6.4 g/dL (6.6-8.7) L 09/15/24 05:56 Albumin 4.0 g/dL (3.5-5.2) 09/15/24 05:56 Globulin 2.4 g/dL (1.3-4.6) 09/15/24 05:56 Lipase 22 U/L (13-60) 09/14/24 19:25 Vitals Last Vital Signs Temp 98.0 F 09/15/24 16:22 Pulse 68 09/15/24 16:22 Resp 18 09/15/24 16:22 BP 112/72 09/15/24 16:22 Pulse Ox 98 09/15/24 16:22 O2 Del Method Room Air 09/15/24 15:01 Discharge Plan Discharge Patient Disposition: Home Condition: Stable Prescriptions: New pantoprazole 40 mg Tablet,Delayed Release (Dr/Ec) 40 mg PO BID 30 Days Qty: 60 0RF Continued estradiol 2 mg tablet 2 mg PO DAILY metoprolol succinate 25 mg tablet extended release 24 hr 25 mg PO DAILY Qty: 90 3RF escitalopram oxalate 20 mg tablet 20 mg PO DAILY clopidogrel 75 mg Tablet 75 mg PO DAILY Qty: 90 3RF atorvastatin 80 mg tablet 80 mg PO QPM isosorbide mononitrate 30 mg tablet extended release 24 hr 30 mg PO DAILY venlafaxine 150 mg capsule,extended release 24hr 150 mg PO DAILY Eliquis 5 mg tablet 5 mg PO BID Discharge Orders: Discharge Order (Routine); Ordered 09/15/24 Ordered By: Nat Hutchins Referrals: Irish King NP [Nurse Practitioner, Cardiology] - 09/23/24 8:30 am Noe Johansen DO [Primary Care Provider, Family Practice] - 09/22/24 11:00 am Discharge Diet: Advance as tolerated, Low Cholesterol and Low Fat Discharge Activity: Resume usual activity Patient Instructions: Pantoprazole (By mouth), Chest Pain (GEN), Chest Pain Stoplight, Opioid Safety Discharge Attestations Time Spent in Discharge Care*: greater than 30 min Quality Metrics Clinical Quality Measures [ No reported AMI, CVA or VTE this stay] Coding Level of Care Code Acute Code for Chg Fwd Diagnoses Chest pain R07.9 History of CAD (coronary artery disease) Z86.79 History of pulmonary embolism Z86.711
== END 2024-09-15 16:23 | disposition home or self-care (01) ==
LOC: ER 21:17 → MEDSURG 21:55
PROVIDERS: Admitting Provider Internal Medicine; Emergency Provider Emergency Medicine; PCP Electrodiagnostic Medicine; Visit Provider Student in an Organized Health Care Education/Training Program
DX: R07.89 Other chest pain (principal); R74.8 Abnormal levels of other serum enzymes; R79.89 Other specified abnormal findings of blood chemistry; I25.10 Atherosclerotic heart disease of native coronary artery without angina pectoris; Z86.79 Personal history of other diseases of the circulatory system; Z86.711 Personal history of pulmonary embolism; Z79.01 Long term (current) use of anticoagulants; Z95.5 Presence of coronary angioplasty implant and graft; Z96.89 Presence of other specified functional implants; Z87.891 Personal history of nicotine dependence
CPT/HCPCS: 36415; 71045; 74160; 80053; 83690; 83880; 84484; 85025; 93005; 99285; G0378; J3535; J8499; J9999

== ENCOUNTER 2025-01-24 20:48 | Emergency (ER) | payer OTHER, SELFPAY ==
--- NOTE | 2025-01-24 20:49 | XRR_ITS ---
PROCEDURE INFORMATION: Exam: XR Chest Exam date and time: 01/24/2025 9:33 PM Age: 64 years old Clinical indication: Pain; Chest pressure; Prior surgery; Surgery date: 6+ months; Surgery type: Coronary stents; Additional info: Cp TECHNIQUE: Imaging protocol: Radiologic exam of the chest. Views: 1 view. COMPARISON: CR XR chest 2V* [id number] 11/22/2024 3:59 PM FINDINGS: Lungs: Unremarkable. No consolidation. Pleural spaces: Unremarkable. No pleural effusion. No pneumothorax. Heart/Mediastinum: Unremarkable. No cardiomegaly. Bones/joints: Unremarkable. XR/XR chest 1V portable [id number] IMPRESSION: No acute finding.
--- NOTE | 2025-01-24 20:52 | ECG_ITS ---
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 Measurements Intervals [place] Rate: 70 P: 7 PA: 148 QRS: 62 QRSD: 98 T: 68 QT: 413 QTc: 447 Interpretive Statements SINUS RHYTHM INCOMPLETE RIGHT BUNDLE BRANCH BLOCK [90+ ms QRS DURATION, TERMINAL R IN V1/V2, 40+ ms S IN I/aVL/V4/V5/V6] Compared to ECG 09/15/2024 00:17:39 No significant changes Electronically Signed On 01-26-2025 20:56:04 CDT by Royce Mosher M.D. [email or web address]
[2025-01-24 20:57] VITALS: BP 157/81; PULSE 70; RESP 20; TEMP 36.5; O2SAT 99; BMI 33.6
--- NOTE | 2025-01-24 21:24 | W.ED.CHESTPA ---
HPI - Chest Pain General: Chief Complaint: Chest Pain Stated Complaint: Chest Pains Time Seen by Provider: 01/24/25 20:50 Source: patient Mode of arrival: ambulatory Limitations: no limitations History of Present Illness: 64-year-old female who states that she has been having some chest pain throughout the day. States it is a pressure type pain and sharp pain states got worse at dinnertime pain currently is a 4 out of 10 symptom mild shortness of breath denies any fevers states she has a chronic cough from COPD Associated symptoms: Reports dyspnea; Deny abdominal pain, fever(s) or vomiting Related Data Home Medications ?Medication ?Instructions ?Recorded ?Confirmed estradiol 2 mg tablet 2 mg PO DAILY 08/24/24 09/20/24 apixaban 5 mg tablet (Eliquis) 5 mg PO BID 09/15/24 09/20/24 atorvastatin 80 mg tablet 80 mg PO QPM 09/15/24 09/20/24 isosorbide mononitrate 30 mg 30 mg PO DAILY 09/15/24 09/20/24 tablet,extended release 24 hr venlafaxine 150 mg 150 mg PO DAILY 09/15/24 09/20/24 capsule,extended release 24 hr Previous Rx's ?Medication ?Instructions ?Recorded clopidogrel 75 mg tablet 75 mg PO DAILY #90 tabs 01/19/24 metoprolol succinate 25 mg 25 mg PO DAILY #90 tabs 06/24/24 tablet,extended release 24 hr Allergies Allergy/AdvReac Type Severity Reaction Status Date / Time No Known Allergies Allergy Verified 09/20/24 14:09 Review of Systems Const: Denies: fever(s), chills, body aches or change in appetite ENMT: Denies: throat pain or dental pain Card: Reports: chest pain Resp: Reports: dyspnea GI: Denies: abdominal pain, vomiting or diarrhea Musc: Denies: neck pain or back pain Skin/Breast: Denies: rash Neuro: Denies: headache(s) PFSH ED PFSH: Medical History Pancreatitis due to biliary obstruction History of pulmonary embolism Community acquired pneumonia CAD (coronary artery disease) Surgical History H/O rotator cuff surgery Social History Smoking and tobacco/nicotine status: current every day tobacco/nicotine user Alcohol intake: current Additional social history: Wants full code discussed with patient 09/14/2024 Marital status: Physical Exam Const: COMMON NORMALS: no acute distress, patient oriented x3 and healthy appearing HENMT: COMMON NORMALS: normocephalic and atraumatic HEAD & SCALP: normocephalic and atraumatic Eye: COMMON NORMALS: conjunctivae normal CONJUNCTIVA: Yes conjunctivae normal Neck/C-Spine: COMMON NORMALS: full ROM and supple Chest: COMMONS NORMALS: normal inspection of the chest and normal palpation of entire chest wall Resp: COMMON NORMALS: normal respiratory effort, No retractions, No use of accessory muscles and clear to auscultation bilaterally AUSCULTATION: clear to auscultation bilaterally Cardio: COMMON NORMALS: regular rate, regular rhythm and No murmurs present (Cardio) RATE: regular rate RHYTHM: regular rhythm GI: COMMON NORMALS: Normal to inspection, nondistended, normoactive bowel sounds present, Soft to palpation, non-tender and no masses PALPATION: Yes Soft to palpation Extremity: COMMON NORMALS: normal to inspection and full ROM Neuro: COMMON NORMALS: patient oriented x3, moves all extremities and no focal motor deficits Psych: COMMON NORMALS: mental status grossly normal, Normal thought process present and cooperative THOUGHT PROCESS: Normal thought process present Skin: COMMON NORMALS: no rashes or lesions noted and no wounds GENERAL SKIN EXAM: no rashes or lesions noted Course Vital Signs: Vital signs: Vital Signs Temperature 97.7 F 01/24/25 20:57 Pulse Rate 71 01/24/25 22:30 Respiratory Rate 16 01/24/25 22:30 Blood Pressure 132/84 01/24/25 22:30 Pulse Oximetry 96 01/24/25 22:30 Oxygen Delivery Me thod Room Air 01/24/25 22:30 MDM - Chest Pain Medical Decision Making Patient presents here chest pain is atypical in nature initial troponin here is negative she has no signs of ACS or pulm embolism. Patient is wanting go home I did try to talk her into staying for 2-hour troponin but she states that it is getting dark and she needs to get home. Informed her she needs a follow-up with her PCP she was return if worsening she understands agrees to plan Medical Records I reviewed the patient's medical records. Lab Data I reviewed the patient's lab results. 01/24/25 21:28 01/24/25 21:28 Radiology Impressions Chest X-Ray 01/24/25 20:49 IMPRESSION: No acute finding. Laboratory Results WBC 14.51 10^3/uL (3.29-11.43) H 01/24/25 21: RBC 4.50 10^6/uL (3.85-5.65) 01/24/25 21: Hgb 12.90 g/dL (11.27-16.99) 01/24/25 21: Hct 37.9 % (36-47) 01/24/25: MCV 84.2 fl (85-98) L 01/24/25 21: MCH 28.7 pg (27-33) 01/24/25: MCHC 34.0 g/dL (30-55) 01/24/25: RDW 14.2 % (12.1-15.1) 01/24/25: Plt Count 373 10^3/cmm (157-399) 01/24/25: MPV 9.5 fL (7.4-10.4) 01/24/25: Neut % (Auto) 46.0 % 01/24/25: Lymph % (Auto) 43.6 % 01/24/25: [place] % (Auto) 6.3 % 01/24/25: Eos % (Auto) 3.5 % 01/24/25: Baso % (Auto) 0.3 % 01/24/25: Neut # (Auto) 6.67 10^3/uL (1.8-7.7) 01/24/25: Lymph # (Auto) 6.3 10^3/uL (0.8-4.8) H 01/24/25: [place] # (Auto) 0.9 10^3/uL (0.2-0.9) 01/24/25 21: Eos # (Auto) 0.5 10^3/uL (0.0-0.8) 01/24/25: Baso # (Auto) 0.1 10^3/uL (0.0-0.1) 01/24/25 21: Nucleated RBC % (auto) 0 % 01/24/25 21: Nucleated RBCs # 0.0 /100WBC 01/24/25 21: PT 13.30 SECONDS (12.1-14.9) 01/24/25 21: INR 0.95 (0.8-1.2) 01/24/25 21:28 Sodium 139 mmol/L (136-145) 01/24/25 21: Potassium 4.5 mmol/L (3.5-5.1) 01/24/25 21: Chloride 105 mmol/L (98-107) 01/24/25 21: Carbon Dioxide 20 mmol/L (22-29) L 01/24/25 21: Anion Gap 18.5 (5-19) 01/24/25 21: BUN 13 mg/dL (8-23) 01/24/25 21: Creatinine 0.8 mg/dL (0.5-0.9) 01/24/25 21: GFR Calculation 72.7 mL/min (90-130) L 01/24/25 21: Glucose 106 mg/dL (65-115) 01/24/25 21: Calculated Osmolality 289 mOsm/kg (285-295) 01/24/25 21: Calcium 9.6 mg/dL (8.5-10.5) 01/24/25 21: Total Bilirubin 0.2 mg/dL (0.15-1.2) 01/24/25 21: AST 24 U/L (0-32) 01/24/25 21:28 ALT 23 U/L (0-33) 01/24/25 21:28 Alkaline Phosphatase 134 U/L (35-105) H 01/24/25 21:28 Troponin T Baseline 7 ng/L (0-10) 01/24/25 21:28 NT-Pro-B Natriuret Pep 65 pg/mL (0-125) 01/24/25 21:28 Total Protein 7.2 g/dL (6.6-8.7) 01/24/25 21: Albumin 4.3 g/dL (3.5-5.2) 01/24/25 21:28 Globulin 2.9 g/dL (1.3-4.6) 01/24/25 21:28 Lipase 26 U/L (13-60) 01/24/25 21:28 All radiology interpretation(s) finalized by discharge EKG Data EKG 1: I personally reviewed and interpreted this EKG as follows: EKG interpretation date: 01/24/25 EKG interpretation time: 20:52 Interpretation: nsr hr [address] elevation qrs 98 qtc 434 Clincial Decision Support The following clinical decision support tools were used to aid in care of the patient HEART Score -> History: Slightly Suspicous, EKG: Normal, Age: 45-64 yrs, Risk Factors: 1 or 2 Risk Factors, Troponin: Baseline Trop <16 ng/L. Resulting HEART Score: 2. Discharge Plan Discharge Patient Disposition: Home Clinical Impression: Chest pain Condition: Stable Prescriptions: No Action estradiol 2 mg tablet 2 mg PO DAILY metoprolol succinate 25 mg tablet extended release 24 hr 25 mg PO DAILY Qty: 90 3RF clopidogrel 75 mg Tablet 75 mg PO DAILY Qty: 90 3RF atorvastatin 80 mg tablet 80 mg PO QPM isosorbide mononitrate 30 mg tablet extended release 24 hr 30 mg PO DAILY venlafaxine 150 mg capsule,extended release 24hr 150 mg PO DAILY Eliquis 5 mg tablet 5 mg PO BID Discharge Orders: Discharge ED (Routine); Ordered 01/24/25 Ordered By: Brendon Hines Referrals: Silver Worthington MD [Primary Care Provider, [facility]] - 4-7 days Discharge Diet: Advance as tolerated Discharge Activity: Resume usual activity Patient Instructions: Chest Pain (ED) Print Language: Tamazight Coding Level of Care Code ED Auto Phone Installer for Santy Butcher
[2025-01-24 21:32] VITALS: BP 150/86; PULSE 70; O2SAT 97
[2025-01-24 21:40] LABS: Hematocrit 37.9 % (36-47); Hemoglobin 12.90 g/dL (11.27-16.99); Mean Corpuscular HGB Conc 34.0 g/dL (30-55); Mean Corpuscular Hemoglobin 28.7 pg (27-33); Mean Corpuscular Volume 84.2 fl (85-98); Nucleated Red Blood Cells % 0 %; Platelet Count 373 10^3/cmm (157-399); Red Blood Count 4.50 10^6/uL (3.85-5.65); White Blood Count 14.51 10^3/uL (3.29-11.43)
[2025-01-24 21:47] LABS: INR 0.95 (0.8-1.2); Prothrombin Time 13.30 SECONDS (12.1-14.9)
[2025-01-24 21:52] LABS: Troponin(5th) Baseline 7 ng/L (0-10)
[2025-01-24 22:02] LABS: Slide Review Slide Review Perform
[2025-01-24 22:13] LABS: Alanine Aminotransferase 23 U/L (0-33); Albumin Level 4.3 g/dL (3.5-5.2); Alkaline Phosphatase 134 U/L (35-105); Blood Urea Nitrogen 13 mg/dL (8-23); Calcium 9.6 mg/dL (8.5-10.5); Carbon Dioxide 20 mmol/L (22-29); Chloride 105 mmol/L (98-107); Creatinine Clr Calc Pharmacy 75.8688; Globulin 2.9 g/dL (1.3-4.6); Glucose 106 mg/dL (65-115); Lipase 26 U/L (13-60); NT Pro B Type Natriuretic Pept 65 pg/mL (0-125); Osmolality Calculated 289 mOsm/kg (285-295); Sodium 139 mmol/L (136-145); Total Protein 7.2 g/dL (6.6-8.7)
[2025-01-24 22:15] LABS: Anion Gap 18.5 (5-19); Aspartate Amino Transferase 24 U/L (0-32); Potassium 4.5 mmol/L (3.5-5.1)
[2025-01-24 22:30] VITALS: BP 132/84; PULSE 71; RESP 16; O2SAT 96
[2025-01-24 23:01] VITALS: BP 132/84; PULSE 86; O2SAT 97
== END 2025-01-24 23:02 | disposition home or self-care (01) ==
PROVIDERS: Emergency Provider Emergency Medicine; PCP Family Medicine
DX: R07.9 Chest pain, unspecified (principal); Z79.01 Long term (current) use of anticoagulants; Z79.02 Long term (current) use of antithrombotics/antiplatelets; Z72.0 Tobacco use; I25.10 Atherosclerotic heart disease of native coronary artery without angina pectoris
CPT/HCPCS: 71045; 80053; 83690; 83880; 84484; 85025; 85610; 93005; 99285; J9999

== ENCOUNTER 2025-03-25 07:19 | Outpatient (CLI) | payer OTHER, SELFPAY ==
[2025-03-25 07:31] VITALS: BMI 33.6
--- NOTE | 2025-03-25 07:43 | ECG_ITS ---
[employer] Test Date: 2025-03-25 Pat Name: Humaira UrbinaDepartment: Room: Gender: Female Nursing Administrator: : 1960 Requested By: Silver Barrera Order Number: [id number] Piotr MD: Dino Caballero M.D. Interpretive Statements Lung unchanged pre/post procedure; Intraprocedure shortess of breath; Symptoms resoled by discharge PROCEDURE: At the baseline, the EKG revealed normal sinus rhythm with some nonspecific ST changes. The baseline heart was 60 bpm with a blood pressue of 140/80 mm of Hg Lexiscan was infused over a period of 20 seconds. A total of 0.4 milligrams of Lexiscan was infused. The stress phase was continued for a total of 5 minutes. Heart rate at the end of the stress phase was 73 bpm with a blood pressure 133/71 mm of Hg. The EKG at the peak infusion revealed no significant changes. Sestamibi was injected 20 seconds after the Lexiscan infusion. Heart rate at the end of the recovery phase was 71 bpm with a blood pressure of 124/68 mm of Hg. CONCLUSION: 1. No significant EKG changes with the LexiScan infusion 2. No LexiScan induced chest pain or cardiac arrhythmia 3. Normal blood pressure and heart rate response 4. Sestamibi/sestamibi perfusion scan pending; see separate report. Electronically Signed On 03-25-2025 19:50:22 HARD CANDY BATCH MIXER by Dino Caballero M.D. [email or web address]
--- NOTE | 2025-03-25 07:44 | NMCV_ITS ---
NM thanh perf SPECT r/s* [id number] Cady Urbina Humaira Age: 64 Gender: F : 1960 Exam Date: 03/25/2025 09:15 Ordering Phys: Silver Worthington MD Technologist: VARSHA Quijano Exam Location: [facility] Indications: cp STRESS TEST [facility] IMAGE PROTOCOL Rest/Stress 1 Lexiscan Day Radiopharmaceutical Dose (mCi) Administration Site Administered by Rest: Tc-99m 10.5 IV Aide Floyd, MANAGER SEMICONDUCTOR Sestamibi Stress:Tc-99m 32.8 IV Aide Everett, MANAGER SEMICONDUCTOR Sestamibi Rest: 25-Mar-2025 60 Discovery 630 Stress: 25-Mar-2025 30 Discovery 630 0.4mg Lexiscan. Images obtained in supine and prone position. SPECT RESULTS Technical Quality: Good Raw Data Analysis: Normal Image Corrections: No attenuation or motion correction applied Summed Stress Score: 0 Summed Rest Score: 0 Summed Difference Score: 0 PERFUSION FINDINGS Fairly uniform myocardial tracer uptake. No significant perfusion abnormalities. FUNCTIONAL RESULTS (calculated via Gated SPECT) Stress Image LV EF (%): 69 Stress EDV (mL):87 TID: 0.96 Stress ESV (mL):27 FUNCTIONAL FINDINGS: Segmental wall motion analysis revealing no gross wall motion abnormalities IMPRESSIONS 1. Myocardial perfusion imaging revealing uniform myocardial tracer uptake with no significant perfusion abnormalities 2. Normal LV ejection fraction of 69% 3. LV wall motion analysis revealing no gross wall motion abnormalities. 4. Normal LV volume Low probability for coronary ischemia, based on the above findings Dr Dino Caballero MD FACC (Electronically Signed) Final Date: 25 March 2025 13:21 S
[2025-03-25 08:48] VITALS: PULSE 61; RESP 18; O2SAT 98
[2025-03-25 10:10] VITALS: BP 124/68; PULSE 73
== END 2025-03-25 07:20 | disposition home or self-care (01) ==
LOC: CDL 07:27
PROVIDERS: PCP Family Medicine; Visit Provider Family Medicine
DX: R07.9 Chest pain, unspecified (principal); R06.02 Shortness of breath; J44.9 Chronic obstructive pulmonary disease, unspecified; J45.909 Unspecified asthma, uncomplicated
CPT/HCPCS: 36415; 78452; 93017; 94060; 94726; 94729; 96374; A9500; J2785; J7613

== ENCOUNTER 2025-04-21 16:50 | Outpatient (CLI) | payer OTHER, SELFPAY ==
--- NOTE | 2025-04-21 16:58 | CT_ITS ---
WS: [id number] CT ABDOMEN AND PELVIS WITH CONTRAST HISTORY: RIGHT FLANK PAIN TECHNIQUE: Imaging performed of the abdomen and pelvis with IV contrast. Single phase imaging of the abdomen. Coronal and sagittal reformats are submitted. All CT scans at [facility] use at least one of these dose optimization techniques: automated exposure control; mA and/or kV adjustment per patient size (includes targeted exams where dose is matched to clinical indication); or iterative reconstruction. IV CONTRAST: Omnipaque 350; 100 mL IV. Oral contrast: No DLP: 659.25 mGy.cm COMPARISON: 09/15/2024, 02/02/2024 Lower thorax: Lung bases are clear. Heart is normal size. No hiatal hernia. Liver/biliary system: Liver is mildly enlarged. No intrahepatic mass or duct dilatation. There is a small amount of pneumobilia which is related to the pancreatic duct stent. Normal portal vein. Gallbladder: Gallbladder is present and slightly contracted with no adjacent inflammation. Pancreas: Reidentified is the pancreatic duct stent. There is been no change in position and configuration of the stent. Possible revision of the stent since 09/15/2024. Reidentified are numerous calcifications in the pancreatic body. No duct dilatation. No pseudocyst or inflammation identified. Spleen: Normal size spleen. No mass or infarct. Adrenal glands: Normal. Right kidney: Normal. Left kidney: Normal. Aorta: Mild atherosclerosis with no aneurysm. Lymphadenopathy: None. Free fluid: None. GI tract: Unremarkable. Abdominal wall: Unremarkable abdominal wall. No hernia. Pelvis: Prior hysterectomy. No free fluid or adenopathy. Negative urinary bladder. Bones: Unremarkable. CT/CT abdomen pelvis w con* [id number] IMPRESSION: 1. Reidentified is the pancreatic duct stent which was described on 09/15/2024. Change in configuration of the stent suggesting there has been interval revisi on of the pancreatic duct stent. 2. No pseudocyst or acute pancreatitis. Evidence for chronic pancreatitis. Num erous calcifications in the pancreas. 3. Small amount of pneumobilia is now present. 4. Contracted gallbladder without adjacent inflammation. 5. No renal obstruction. 6. No ascites.
[2025-04-21] MEDS: iohexol 350 mg/mL 500 mL Btl (per mL) IV (17:20)
== END 2025-04-21 16:51 | disposition home or self-care (01) ==
LOC: RAD 16:51
PROVIDERS: PCP Family Medicine; Visit Provider Family Medicine
DX: R10.A1 Flank pain, right side (principal)
CPT/HCPCS: 74177

== ENCOUNTER 2025-05-18 08:41 | Outpatient (CLI) | payer OTHER, SELFPAY ==
--- NOTE | 2025-05-18 08:50 | CT_ITS ---
WS: [id number] LDCT LUNG CANCER SCREENING TECHNIQUE: Noncontrast CT of the chest with coronal and sagittal reformatted images. CLINICAL INFORMATION: NICOTINE DEPENDENCE,CIGARETTES COMPARISON: None. DLP: 90.40 mGy.cm DIvol: Mean CTDIvol: 2.10 (mGy) All CT scans at [facility] use at least one of these dose optimization techniques: automated exposure control; mA and/or kV adjustment per patient size (includes targeted exams where dose is matched to clinical indication); or iterative reconstruction. FINDINGS: Mild chronic emphysematous changes. Numerous tiny scattered micronodules. Hazy semisolid opacity RIGHT upper lobe measuring 5 mm. Small RIGHT perifissural nodule. Few hazy opacities RIGHT lower lobe likely inflammatory. Subpleural 5 mm nodule RIGHT lower lobe posteromedially. 5 mm nodule LEFT upper lobe anterior medially. Aortic calcification. Dense coronary calcification. Recommend cardiology consultation. Calcified RIGHT hilar nodes. No mediastinal or hilar lymphadenopathy. No axillary lymphadenopathy. Adrenal glands are normal. Normal GE junction. Pancreatic calcifications. Partially visualized pancreatic stent. Mild thoracic curve. Mild thoracic kyphosis. CT/CT lung screening [id number] IMPRESSION:Dense coronary calcification. Recommend cardiology consultation. LUNG-RADS: 2S-Benign Appearance or Behavior with Significant Findings FOLLOW UP: 12 Month: Continue annual screening with LDCT
== END 2025-05-18 08:42 | disposition home or self-care (01) ==
LOC: RAD 08:45
PROVIDERS: PCP Family Medicine; Visit Provider Family Medicine
DX: Z12.2 Encounter for screening for malignant neoplasm of respiratory organs (principal); F17.210 Nicotine dependence, cigarettes, uncomplicated; J43.9 Emphysema, unspecified; R91.8 Other nonspecific abnormal finding of lung field; R91.1 Solitary pulmonary nodule; I25.10 Atherosclerotic heart disease of native coronary artery without angina pectoris; K86.89 Other specified diseases of pancreas; Z96.89 Presence of other specified functional implants
CPT/HCPCS: 71271